=== PATIENT | male | born 1935 | race Caucasian/White ===

== ENCOUNTER 2018-04-18 10:52 | Inpatient (IN) | payer OTHER ==
[~2018-04-18] VITALS: Ht 177.8 cm; Wt 89.0 kg
[~2018-04-18 10:52] MED LIST: AMPICILLIN SODIU2 GM IV; AUGMENTIN 875 M1 TAB PO; DILTIAZEM CD240 MG PO; DOCUSATE SODIU100 MG PO; DULCOLAX10 MG PR; LEVEMIR 10100 UNITS/ SC; LEVEMIR100 U/ML SC; LEXAPRO10 M1 PO; LISINOPRIL HCTZ1 TAB PO; MIRALAX17 GM PO; MOBIC15 MG PO; NEURONTIN100 MG PO; NOVOLIN R100 U/ML; NOVOLOG100 U/ML SC; ROXICODONE5 MG PO; SIMVASTATIN40 M1 PO; VIBRAMYCIN 100100 MG PO; ZESTRIL20 M1 PO
--- NOTE | 2018-04-18 11:43 | ED AMS/SEIZURE/WEAK/DIZZY ---
History of Present Illness General Chief Complaint: General Adult Stated Complaint: WOUNDS ON FEET, REDUCED MOBILITYD Source: patient, family, old records Exam Limitations: no limitations Vital Signs & Intake/Output Vital Signs & Intake/Output Vital Signs Date Time Temp Pulse Resp B/P B/P Pulse O2 O2 Flow FiO2 Mean Ox Delivery Rate 04/19 0715 100.1 04/19 0631 100.0 72 20 114/50 98 Nasal Cannula 04/19 0556 100.0 04/19 0320 101.2 04/19 0000 Nasal 2.0L Cannula 04/18 2233 100.7 93 22 118/46 96 Nasal Cannula 04/18 2229 98.1 92 22 102/60 94 Nasal Cannula 04/18 1605 98.8 80 16 110/80 97 Room Air 04/18 1547 98.5 92 18 97 04/18 1544 126/53 04/18 1352 Room Air 04/18 1352 98.6 103 18 138/66 99 Room Air 04/18 1119 98.7 85 18 106/61 95 Room Air ED Intake and Output 04/19 0000 04/18 1200 Intake Total 1200 Output Total Balance 1200 Intake, IV 1000 Intake, Oral 200 Patient 189 lb 190 lb Weight Weight Bed scale Measurement Method Allergies Coded Allergies: NO KNOWN ALLERGIES (04/18/18) Reconcile Medications Diltiazem HCl (Cardizem Cd) 240 MG CAP.ER.24H 1 CAP PO DAILY HEART (Reported) Escitalopram Oxalate (Lexapro) 10 MG TABLET 1 TAB PO DAILY MENTAL HEALTH ( Reported) Insulin Aspart (Novolog) (Unknown Strength) VIAL (Unknown Dose) SC SEE SLIDING SCALE DIABETES (Reported) Insulin Detemir (Levemir Flextouch) 100 UNIT/ML (3 ML) INSULN.PEN 68 UNITS SC DAILY DIABETES (Reported) Lisinopril (Zestril) 20 MG TABLET 1 TAB PO DAILY HEART (Reported) Phenytoin (Dilantin) 100 MG CAPSULE 2 CAP PO BID SEIZURES (Reported) Simvastatin (Simvastatin*) 40 MG TABLET 1 TAB PO QPM CHOLESTEROL (Reported) Tamsulosin HCl (Flomax) 0.4 MG CAP.ER.24H 1 CAP PO DAILY BPH (Reported) Triage Note: PT TO ER WITH HIS GRANDAUGHTER, PT LIVES ON HIS OWN AND SHE STOPS INTO CHECK ON HIM, PT WAS INCONTINENT OF URINE, HOME SMELLS LIKE VOMIT. [facility] STATES THAT PTS L FOOT LOOKS LIKE IT NEEDS TO BE CUT OFF, THIS NURSE WAS SHOWED A PICTURE OF FOOT. NECROSIS AND REDNESS NOTED. PT IS IDDM. POOR APPETITE, AFEBRILE. PT HAS TOES AMPUTATED ON BOTH FEET Triage Nurses Notes Reviewed? yes Onset: Abrupt Duration: day(s):, constant, getting worse Timing: recent history Injury Environment: home Severity: severe Severity Numbers: 10 No Modifying Factors: none Associated Symptoms: DENIES HPI: 82-year-old male history of diabetes, neuropathy hypertension peripheral vascular disease dementia previous history of osteomyelitis requiring amputations of the feet, presents with his granddaughter niece for evaluation after they found him in an unkempt state. Per granddaughter patient was incontinent of urine smelled like vomit. Upon their evaluation they saw that the patient's toe was black he has a history of multiple amputations in the past secondary to osteomyelitis neuropathy his sugar was greater than 500 he states he did not take his insulin today his granddaughter gave his insulin prior to arrival. He denies any chest pain shortness of breath he is alert and oriented (Seamus Humphries) Past History Travel History Traveled to [place] past 21 day No Medical History Any Pertinent Medical History? see below for history Neurological: NONE EENT: NONE Cardiovascular: hypertension, hyperlipidemia Respiratory: NONE Gastrointestinal: NONE Hepatic: NONE Renal: NONE Musculoskeletal: NONE Psychiatric: NONE Endocrine: diabetes Blood Disorders: NONE Cancer(s): NONE History of MRSA: No History of VRE: No History of CDIFF: No Tetanus Vaccine: 02/28/12 Surgical History Surgical History: RT TOE AMPUTATION Psychosocial History Who do you live with Patient/Self Services at Home None What is your primary language Yoruba Tobacco Use: Never used ETOH Use: denies use Illicit Drug Use: denies illicit drug use Family History Hx Contributory? No (Seamus Humphries) Review of Systems Review of Systems Constitutional: Reports: see HPI. Comments Review of systems: See HPI, All other systems negative. Constitutional, no chills no fever HEENT: no sore throat no congestion Cardiovascular: No chest pain , no palpitation Skin: no rashes, no change in skin Respiratory: No dyspnea no cough no sputum GI: No nausea no vomiting, no diarrhea : No dysuria No hematuria, no frequency Muscle skeletal: No joint pain, no back pain, no neck pain, Neurologic: no headache Heme/endocrine: No bruising Immunology: No lymphadenopathy (Seamus Humphries) Physical Exam Physical Exam General Appearance: well developed/nourished, alert, awake Comments: Well-developed well-nourished person in no acute distress HEENT: Normal EENT exam; PERRL, EOMI,HEAD is atraumatic. moist mucous membranes. Neck: Supple, normal range of motion Back:Full range of motion Cardiovascular: Regular rate and rhythms no murmurs rub Respiratory:No respiratory distress. Patient speaking in full complete sentences. Breath sounds clear to auscultation bilaterally: NO W/R/R Abdomen: Soft, nontender nondistended, no appreciable organomegaly. Normal bowel sounds. No rebound/guarding Upper Extremity: No edema, full range of motion of extremities, normal and equal pulses bilaterally, 5 out of 5 strength noted to bilateral upper extremities Hip/Pelvis: Atraumatic/Stable. FROM. Knee: Atraumatic/stable. FROM. No joint swelling, no effusion. No laxity. Leg: Atraumatic. Nontender. No edema, 5 out of 5 strength in the lower extremity, normal dorsiflexion of great toe bilaterally, gross sensation is intact, patellar tendon reflex 2+ bilaterally. Ankle/Foot: The left third toe is necrotic, there is surrounding erythema extending back to dorsal foot sensation is within normal limits the foot, the rest of the toes are otherwise atraumatic the patient is status post indication bilaterally toes ,FROM. No laxity on exam Pulses: Normal/equal DP/PT pulses bilaterally. Brisk cap refill Neuro: Alert oriented x3, motor sensory normal, cranial nerves II through XII grossly intact. There were no obvious focal neurologic abnormalities. Skin: No appreciable rash on exposed skin, skin is warm and dry. Psych: Mood and affect is normal, memory and judgment is normal. Core Measures ACS in differential dx? Yes CVA/TIA Diagnosis No Sepsis Present: Yes Sepsis Focused Exam Completed? Yes (Seamus Humphries) ED Sepsis Exam Date of Focused Sepsis Exam: 04/18/18 Time of Focused Sepsis Exam: 1140 Sepsis Cardiac Exam: Regular Rate/Rhythm Sepsis Resp Exam: CTA Sepsis Cap Refill Exam: <2 Sec Sepsis Peripheral Pulse Exam: Normal Sepsis Peripheral Pulse Location: Dorsalis Pedis Sepsis Skin Color Exam: Normal for Ethnicity Skin Temp/Moisture Exam: Warm/Dry (Jose SORTO,Seamus) Progress Differential Diagnosis: arrythmia, anemia, dehydration, electrolyte imbalance, GI bleed, hypoglycemia, OSTEOMYELITIS, CELLUILTIS, LEYDA, DKA, HHS Plan of Care: Orders Procedure Date/time Status Consistent Carbohydrate 2 04/19 B Active THYROID STIMULATING HORMONE 04/19 0824 Active LIPID PANEL 04/19 0824 Active FREE T4 04/19 0824 Active DILANTIN 04/19 0824 Active CBC WITHOUT DIFFERENTIAL 04/19 0824 Active BASIC ELECTROLYTES PLUS BUN&CR 04/19 0824 Active VITAMIN B12 04/19 0824 Active NUTRITIONAL CONSULT 04/19 0800 Active Change service to 04/19 0759 Active Transfer Disposition 04/19 0310 Active Consistent Carbohydrate 2 04/18 D Complete Pathway - chart 04/18 2036 Active Transfer patient to 04/18 1850 Active LACTIC ACID 04/18 1843 Complete Lab Add-on Test 04/18 1818 Active EKG 04/18 1740 Active EXTREMETIES OR SPEC 04/18 1735 Active PHENYTOIN 04/18 1701 Complete Weight 04/18 1642 Active Vital Signs 04/18 1642 Active Teach/Educate 04/18 1642 Active Pain Treatment and Response 04/18 1642 Active Nutritional Intake, Monitor 04/18 1642 Active Isolation 04/18 1642 Active Intake & Output 04/18 1642 Active Patient Care Conference 04/18 1642 Active Activity/Ambulation 04/18 1642 Active Pathway - chart 04/18 1544 Active House Staff 04/18 1544 Active Patient Data 04/18 1544 Active Code Status 04/18 1544 Active LACTIC ACID 04/18 1441 Complete Patient Data 04/18 1354 Active Skin/Pressure Ulcer Assess (Sk 04/18 1353 Active ED Holding Orders 04/18 1345 Active Admit to inpatient 04/18 1345 Active Vital Signs 04/18 1345 Active Code Status 04/18 1345 Complete Intake & Output 04/18 1223 Active TOTAL IRON BINDING CAPACITY 04/18 1210 Complete PHOSPHORUS 04/18 1210 Complete MAGNESIUM 04/18 1210 Complete GLYCOSYLATED HGB 04/18 1210 Complete FERRITIN 04/18 1210 Complete SERUM IRON 04/18 1210 Complete FingerStick- Glucose 04/18 1152 Active BLOOD CULTURE 04/18 1150 Active LACTIC ACID 04/18 1141 Complete WESTERGREN SED RATE 04/18 1141 Complete MIXED VENOUS BLOOD GAS (GEN) 04/18 1140 Complete Saline Lock 04/18 1140 Active Telemetry/Windows Systems Admin 04/18 1140 Active URINALYSIS 04/18 1140 Complete TROPONIN LEVEL 04/18 1140 Complete SERUM OSMOLALITY 04/18 1140 Complete COMPREHENSIVE METABOLIC PANEL 04/18 1140 Complete CBC WITHOUT DIFFERENTIAL 04/18 1140 Complete ACETONE 04/18 1140 Complete EKG 04/18 1140 Active Lab Add-on Test 04/18 UNK Active VTE Mechanical Prophylaxis 04/18 UNK Active FingerStick- Glucose 04/18 UNK Complete Current Medications Sig/Aida Start time Last Medication Dose Stop Time Status Admin Insulin Aspart 0 AT BEDTIME 04/19 2100 AC (NovoLOG) Ampicillin Sodium/ 3,000 MG Q8 04/19 1400 AC Sulbactam Sodium (Unasyn) Sodium Chloride 100 ML (Normal Saline 0.9%) Insulin Aspart 0 TIDAC 04/19 1200 AC (NovoLOG) Diltiazem HCl 240 MG DAILY 04/19 09 AC (Cardizem CD) Escitalopram Oxalate 10 MG DAILY 04/19 09 AC (Lexapro) Insulin Detemir 6 UNITS BID 04/19 09 AC (Levemir) Tamsulosin HCl 0.4 MG DAILY 04/19 09 AC (Flomax) Melatonin 5 MG AT BEDTIME 04/18 2245 AC 04/18 (Melatonin) 2244 Phenytoin 200 MG BID 04/18 2100 AC 04/18 (Dilantin ER) 2042 Acetaminophen 650 MG Q6P PRN 04/18 2045 AC (Tylenol) Acetaminophen 1,000 MG Q6P PRN 04/18 2045 AC 04/19 (Ofirmev) 0556 Oxycodone/ 2 TAB Q6P PRN 04/18 204 AC 04/18 Acetaminophen 9 (Percocet) Dextrose/Sodium 1,000 ML Q20H 04/18 1845 AC 04/18 Chloride 2100 (D5W-1/2 Normal Saline 1000ML) Atorvastatin Calcium 40 MG 1700 04/18 1700 AC 04/18 (Lipitor) 1904 Heparin Sodium 5,000 UNIT Q8 04/18 1544 AC 04/19 (Porcine) 0551 Laboratory Tests 04/19/18 0013: Lactic Acid 1.0, Phenytoin < 3.0 L 04/18/18 1530: Lactic Acid 3.8 H 04/18/18 1255: Bicarbonate Actual 24, Mixed VBG pH 7.39, Mixed VBG pCO2 41, Mixed VBG O2 Saturation 17 L, P-50 (Temp Corrected) N, Carboxyhemoglobin 0.6 L, O2 Concentration % .21, Temperature 98.7, O2 Delivery Method RA, Phlebotomy Draw Site RIGHT A/C 04/18/18 1242: ESR Westergren > 130 H 04/18/18 1210: Lactic Acid 2.8 H 04/18/18 1210: Anion Gap 16, Estimated GFR 39 L, BUN/Creatinine Ratio 18.8, Glucose 564 *H, Hemoglobin A1c 11.5 H, Serum Osmolality 295, Calcium 8.8, Phosphorus 4.3, Magnesium 2.0, Iron 32 L, TIBC 229 L, Ferritin 651.0 H, Total Bilirubin 1.0, AST 19, ALT 35, Alkaline Phosphatase 102, Troponin I 0.01, Total Protein 6.8, Albumin 3.5, Globulin 3.3, Albumin/Globulin Ratio 1.1, CBC w Diff MAN DIFF ORDERED, RBC 3.75 L, MCV 82.1, MCH 28.4, MCHC 34.6, RDW 12.9, MPV 8.0, Gran % 89.6 H, Lymphocytes % 4.2 L, Monocytes % 5.8, Eosinophils % 0.3, Basophils % 0.1, Absolute Granulocytes 14.9 H, Segmented Neutrophils 90 H, Band Neutrophils 1, Absolute Lymphocytes 0.7 L, Lymphocytes 3 L, Monocytes 6, Absolute Monocytes 1.0 H, Absolute Eosinophils 0.1, Absolute Basophils 0, Platelet Estimate VERIFIED BY SMEAR, Normocytic RBCs VERIFIED, Normochromic RBCs VERIFIED, Acetone Level NEGATIVE 04/18/18 1200: Urine Color YEL, Urine Clarity CLEAR, Urine pH 6.0, Ur Specific [place] 1.010, Urine Protein TRACE H, Urine Ketones NEG, Urine Nitrite NEG, Urine Bilirubin NEG, Urine Urobilinogen 0.2, Ur Leukocyte Esterase NEG, Ur Microscopic SEDIMENT EXAMINED, Urine RBC RARE, Urine WBC RARE, Ur Epithelial Cells OCCAS, Urine Hemoglobin TRACE-INTACT H, Urine Glucose >=1000 H Microbiology 04/18 1730 EXTREMITIE: Gross Specimen Examination - RECD 04/18 1730 EXTREMITIE: Gram Stain - RECD 04/18 1242 BLOOD: Blood Culture - RES GRAM POSITIVE COCCI 04/18 1210 BLOOD: Blood Culture - RES GRAM POSITIVE COCCI Labs ordered old records reviewed IV fluids ordered x-rays ordered case discussed with Dr. Hernandez agrees plan Diagnostic Imaging: Viewed by Me: Radiology Read. Discussed w/RAD: Radiology Read. Radiology Impression: PATIENT: LEATHA PENNINGTON PRESENT AGE: 82 PATIENT ACCOUNT NO: [id number] : 35 LOCATION: [facility] ORDERING PHYSICIAN: Seamus SORTO SERVICE DATE: 04/18/18 EXAM TYPE: RAD - XRY-FOOT COMPLETE, LEFT EXAMINATION: XR FOOT, LEFT CLINICAL INFORMATION: Left third toe necrotic erythema. Evaluate osteomyelitis. COMPARISON: None TECHNIQUE: Left foot, 3 views FINDINGS: There are is ill-defined osteolysis/ fragmentation of the middle and distal phalanges of the third toe, consistent with osteomyelitis. Soft tissues around the distal phalanx of the third toe are atrophied. There appear to be a few foci of gas within soft tissues around the middle phalanx and region of the PIP joint. The second toe is remotely amputated through the region of the head of the proximal phalanx. 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 A subchondral cyst is present within the proximal aspect of the navicular. Alignment is normal at the [place] and Lisfranc joints. Peripheral vessels are calcified. There are enthesophytes of the calcaneus. IMPRESSION: Osteomyelitis of the middle and distal phalanges of the third toe and apparent small foci of gas within the surrounding soft tissues. DICTATED BY: Douglas Long MD DATE/TIME DICTATED:1401 CREDIT COLLECTIONS REP:JODY DATE/TIME TRANSCRIBED:04/18/181401 CONFIDENTIAL, DO NOT COPY WITHOUT APPROPRIATE AUTHORIZATION. <Electronically signed in Other Vendor System> SIGNED BY: Douglas Long MD 04/18/18 1409, PATIENT: LEATHA PENNINGTON PRESENT AGE: 82 PATIENT ACCOUNT NO: [id number] : 35 LOCATION: [facility] ORDERING PHYSICIAN: Seamus SORTO SERVICE DATE: 04/18/18 EXAM TYPE: RAD - XRY-CHEST XRAY, TWO VIEWS EXAMINATION: XR CHEST CLINICAL INFORMATION: Altered mental status. Hypoglycemia. COMPARISON: Chest radiograph 09/01/2014. TECHNIQUE: 2 views of the chest were obtained. The lateral view was repeated. FINDINGS: The lungs are grossly clear without consolidation, edema, effusion, or pneumothorax. Mild low lung volumes. Normal heart size. Multilevel degenerative changes in the thoracic spine. Degenerative changes at the shoulder joints. IMPRESSION: No active disease in the chest. DICTATED BY: René Solomon MD DATE/TIME DICTATED:1402 CREDIT COLLECTIONS REP:JODY DATE/TIME TRANSCRIBED:04/18/181402 CONFIDENTIAL, DO NOT COPY WITHOUT APPROPRIATE AUTHORIZATION. <Electronically signed in Other Vendor System> SIGNED BY: René Solomon MD 04/18/181407 Initial ED EKG: normal QRS complex, normal sinus rhythm (PACS) Prior EKG: unchanged Rhythm Strip: normal sinus rhythm (Seamus Humphries) Departure Departure Time of Disposition: 1346 Disposition: STILL A PATIENT Condition: Stable Clinical Impression Primary Impression: Uncontrolled diabetes mellitus Secondary Impressions: Cellulitis, Necrosis of toe, Osteomyelitis Referrals: Karthikeyan Tabares MD (PCP/Family) Departure Forms: Customer Survey General Discharge Information Admission Note Spoke With: Sangeeta Huntlye MD Documentation of Exam: Documentation of any treatments & extenuating circumstances including Concerns Regarding Discharge (functional status, medication knowledge or non-compliance, living conditions, etc.) that warrant an admission rather than observation: Podiatry consult endocrine consult IV fluids insulin premature discharge he is medically harmful with a car case management consult for probable rehabilitation placement (Seamus Humphries) Admission Note Spoke With: Sangeeta Huntley MD Documentation of Exam: Documentation of any treatments & extenuating circumstances including Concerns Regarding Discharge (functional status, medication knowledge or non-compliance, living conditions, etc.) that warrant an admission rather than observation: [In addition to the above recommended MRI to rule out osteo] PA/BROADBAND ENGINEER Co-Sign Statement Statement: ED Attending supervision documentation- [X] I saw and evaluated the patient. I have also reviewed all the pertinent lab results and diagnostic results. I agree with the findings and the plan of care as documented in the PA's/BROADBAND ENGINEER's documentation. [X] I have reviewed the ED Record and agree with the PA's/BROADBAND ENGINEER's documentation. [] Additions or exceptions (if any) to the PAs/BROADBAND ENGINEER's note and plan are summarized below: [SEE ABOVENOTE] (David MONTE,Martin Kendrick)
[2018-04-18] MEDS ORDERED: CARDIZEM CD240 M1 PO (12:22)
[2018-04-18 12:23] LABS: ABSOLUTE BASOPHIL COUNT 0 /CUMM (0.0-0.2); ABSOLUTE EOSINOPHIL COUNT 0.1 /CUMM (0.0-0.7); ABSOLUTE GRANULOCYTE CT 14.9 /CUMM (1.4-6.5); ABSOLUTE LYMPH COUNT 0.7 /CUMM (1.2-3.4); BASOPHIL % 0.1 % (0.0-2.0); EOSINOPHIL % 0.3 % (0-5); GRANULOCYTE % 89.6 % (42.2-75.2); HEMATOCRIT 30.8 % (42-52); MEAN CORPUSCULAR HGB 28.4 PG (27.0-31.0); MEAN CORPUSCULAR HGB CONC 34.6 G/DL (33.0-37.0); MEAN CORPUSCULAR VOLUME 82.1 FL (80.0-94.0); PLATELET COUNT 457 /CUMM (130-400); RBC DISTRIBUTION WIDTH 12.9 % (11.5-14.5); RED BLOOD CELL CT 3.75 /CUMM (4.70-6.10); WHITE BLOOD CELL COUNT 16.6 /CUMM (4.8-10.8)
[2018-04-18] MEDS ORDERED: NOVOLOG100 UNIT/2 SC (12:24)
[2018-04-18] MEDS ORDERED: LEVEMIR FL100 UNIT/1 SC (12:25)
[2018-04-18] MEDS ORDERED: DILANTIN100 M1 PO (12:26)
[2018-04-18] MEDS ORDERED: FLOMAX0.4 M1 PO (12:27)
--- NOTE | 2018-04-18 14:00 | History & Physical ---
Dyana Murguia 04/18/18 1357: General Information and HPI History of Present Illness: Mr. Pennington is a 82-year-old male history of noncompliance insulin-dependent diabetes, neuropathy, hypertension, peripheral vascular disease, dementia, previous history of osteomyelitis s/p amputations, presents with his grandchildren for evaluation after they found him in an unkempt state. Granddaughter reports she found her grandfather in soiled clothing that smelled of urine with mild confusion. Patient reports he does have a history of urinary incontinence and is unable to get to the bathroom on time. He noticed a new chronic left-sided foot toe necrotic wound for the past few weeks and did not seek medical attention. He is able to bear weight without difficulty and does not require a walker at baseline. He went to see his PCP-Dr. Tabares for routine visit a few weeks ago and it was reported to him that his glucose level was in the 500s. He admits to noncompliance with his insulin and reports though he has an adequate supply he just does not use it. He has seen podiatry-Dr. Antoine in the past but has not followed up with him for the past 2-3 years. He denies trauma, blurry vision, fever, chills, nausea, vomiting, SOB, CP, parasthesias, urinary or bowel symptoms. In the ED he was given 10 units of Novlin, IV Unasyn x 1 dose and 2L NS IVF Allergies/Medications Allergies: Coded Allergies: NO KNOWN ALLERGIES (04/18/18) Home Med list Diltiazem HCl (Cardizem Cd) 240 MG CAP.ER.24H 1 CAP PO DAILY HEART (Reported) Escitalopram Oxalate (Lexapro) 10 MG TABLET 1 TAB PO DAILY MENTAL HEALTH ( Reported) Insulin Aspart (Novolog) (Unknown Strength) VIAL (Unknown Dose) SC SEE SLIDING SCALE DIABETES (Reported) Insulin Detemir (Levemir Flextouch) 100 UNIT/ML (3 ML) INSULN.PEN 68 UNITS SC DAILY DIABETES (Reported) Lisinopril (Zestril) 20 MG TABLET 1 TAB PO DAILY HEART (Reported) Phenytoin (Dilantin) 100 MG CAPSULE 2 CAP PO BID SEIZURES (Reported) Simvastatin (Simvastatin*) 40 MG TABLET 1 TAB PO QPM CHOLESTEROL (Reported) Tamsulosin HCl (Flomax) 0.4 MG CAP.ER.24H 1 CAP PO DAILY BPH (Reported) Past History Travel History Traveled to [place] past 21 day No Medical History Neurological: NONE EENT: NONE Cardiovascular: hypertension, hyperlipidemia Respiratory: NONE Gastrointestinal: NONE Hepatic: NONE Renal: NONE Musculoskeletal: NONE Psychiatric: NONE Endocrine: diabetes Blood Disorders: NONE Cancer(s): NONE History of MRSA: No History of VRE: No History of CDIFF: No Tetanus Vaccine: 02/28/12 Surgical History Surgical History: RT TOE AMPUTATION Past Family/Social History Psychosocial History Services at Home: None ETOH Use: denies use Illicit Drug Use: denies illicit drug use Review of Systems Review of Systems Constitutional: Reports: see HPI. Exam & Diagnostic Data Last 24 Hrs of Vital Signs/I&O Vital Signs Date Time Temp Pulse Resp B/P B/P Pulse O2 O2 Flow FiO2 Mean Ox Delivery Rate 04/18 1352 Room Air 04/18 1352 98.6 103 18 138/66 99 Room Air 04/18 1119 98.7 85 18 106/61 95 Room Air Intake & Output 04/18 1600 04/18 0800 04/18 0000 Intake Total 1000 Output Total Balance 1000 Intake, IV 1000 Patient 190 lb Weight Physical Exam General Appearance Alert, Oriented X3, Cooperative, No Acute Distress HEENT Atraumatic, PERRLA, EOMI Neck Supple, No JVD, No thryomegaly Cardiovascular Regular Rate, Normal S1, Normal S2, No Murmurs Lungs Clear to Auscultation, Normal Air Movement Abdomen Normal Bowel Sounds, Soft, No Tenderness Extremities Left foot warm, necrotic third digit lesion, swelling, palpable pulse. Right foot cool without palpable pulse but heard with doppler. Multiple toe amputations Last 24 Hrs of Labs/Av: Laboratory Tests 04/18/18 1255: Bicarbonate Actual 24, Mixed VBG pH 7.39, Mixed VBG pCO2 41, Mixed VBG O2 Saturation 17 L, P-50 (Temp Corrected) N, Carboxyhemoglobin 0.6 L, O2 Concentration % .21, Temperature 98.7, O2 Delivery Method RA, Phlebotomy Draw Site RIGHT A/C 04/18/18 1242: ESR Westergren > 130 H 04/18/18 1210: Lactic Acid 2.8 H 04/18/18 1210: Anion Gap 16, Estimated GFR 39 L, BUN/Creatinine Ratio 18.8, Glucose 564 *H, Serum Osmolality 295, Calcium 8.8, Total Bilirubin 1.0, AST 19, ALT 35, Alkaline Phosphatase 102, Troponin I 0.01, Total Protein 6.8, Albumin 3.5, Globulin 3.3, Albumin/Globulin Ratio 1.1, CBC w Diff MAN DIFF ORDERED, RBC 3.75 L, MCV 82.1, MCH 28.4, MCHC 34.6, RDW 12.9, MPV 8.0, Gran % 89.6 H, Lymphocytes % 4.2 L, Monocytes % 5.8, Eosinophils % 0.3, Basophils % 0.1, Absolute Granulocytes 14.9 H, Segmented Neutrophils 90 H, Band Neutrophils 1, Absolute Lymphocytes 0.7 L, Lymphocytes 3 L, Monocytes 6, Absolute Monocytes 1.0 H, Absolute Eosinophils 0.1, Absolute Basophils 0, Platelet Estimate VERIFIED BY SMEAR, Normocytic RBCs VERIFIED, Normochromic RBCs VERIFIED, Acetone Level NEGATIVE 04/18/18 1200: Urine Color YEL, Urine Clarity CLEAR, Urine pH 6.0, Ur Specific [place] 1.010, Urine Protein TRACE H, Urine Ketones NEG, Urine Nitrite NEG, Urine Bilirubin NEG, Urine Urobilinogen 0.2, Ur Leukocyte Esterase NEG, Ur Microscopic SEDIMENT EXAMINED, Urine RBC RARE, Urine WBC RARE, Ur Epithelial Cells OCCAS, Urine Hemoglobin TRACE-INTACT H, Urine Glucose >=1000 H Microbiology 04/18 1242 BLOOD: Blood Culture - RECD 04/18 1210 BLOOD: Blood Culture - RECD Diagnostic Data EKG Results Sinus tachycardia, PVCs, HR 101, QTc 426 Assessment/Plan Assessment: Mr. Pennington is a 82-year-old male history of diabetes, neuropathy, hypertension, peripheral vascular disease dementia previous history of osteomyelitis s/p amputations, presents with his granddaughter niece for evaluation after they found him in an unkempt state. Problem list: #Left foot gas gangrene #Mild hyponatremia #LEYDA -Cr 1.7 (baseline 1.3) #Uncontrolled DM #Lactic acidosis 2.8>>3.8 Plan: Admit to general medical floor for further evaluation and management Nothing by mouth for urgent toe amputation as per podiatry IV Unasyn Hgba1c Trend lactic acid Accu-Chek and NovoLog sliding scale Start Levemir 10 units twice a day Continue home meds: Escitalopram, tamsulosin, phenytoin, statin, diltiazem We will hold lisinopril until renal function improves Pain: Oxycodone/acetaminophen Podiatry consult Endo consult ID consult Diet: Diabetic DVT ppx: Heparin Code: Full As Ranked By This Provider Problem List: 1. Cellulitis 2. Necrosis of toe 3. Uncontrolled diabetes mellitus Core Measures/Misc (08/12) Acute Coronary Syndrome ACS Diagnosis: No Congestive Heart Failure Congestive Heart Failure Diagnosis No Cerebrovascular Accident CVA/TIA Diagnosis: No VTE (View Protocol) VTE Risk Factors Age>40 No Mechanical VTE Prophylaxis d/t N/A MechProphylax Ordered No VTE Pharm Prophylaxis d/t NA PharmProphylax ordered Sepsis (View protocol) Sepsis Present: No If YES complete Sepsis Event Note If YES complete Sepsis Event Note Lexie Esparza MD 04/18/18 1535: Core Measures/Misc (08/12) Sepsis (View protocol) If YES complete Sepsis Event Note If YES complete Sepsis Event Note Attending MD Review Statement Attending Statement Attending MD Statement: examined this patient, discuss w/resident/PA/WELLNESS EDUCATOR, agreed w/resident/PA/WELLNESS EDUCATOR, discussed with family, reviewed EMR data (avail), discussed with nursing, discussed with case mgmt, reviewed images, amended to note Attending Assessment/Plan: 82 y/o M with pmh sig for diabetes, neuropathy, hypertension peripheral vascular disease dementia previous history of osteomyelitis s/p amputations was brought in by family 2/2 to found in unkempt state. Per granddaughter patient was incontinent of urine smelled like vomit. Upon their evaluation they saw that the patient's toe was black he has a history of multiple amputations. Therefore he was brought into the hospital. Upon evaluation it was found that his left third toe was black with surrounding area of cellulitis. X-ray showed Osteomyelitis of the middle and distal phalanges of the third toe and apparent small foci of gas within the surrounding soft tissues. Patient was also found to be hyperglycemic with blood sugars more than 500s, hyponatremic as well as acute on chronic kidney failure. He is noncompliant with his insulin. He lives by himself and according to the family he refuses to go to skilled nursing. Patient denies any fevers. Vital Signs Date Time Temp Pulse Resp B/P B/P Pulse O2 O2 Flow FiO2 Mean Ox Delivery Rate 04/18 1352 Room Air 04/18 1352 98.6 103 18 138/66 99 Room Air 04/18 1119 98.7 85 18 106/61 95 Room Air on exam; aox3, nad. cv; s1,s2, rrr resp; clear abd; soft, nt, bs+ ext; no edema ms: right first and 4th tow amputated. left 3rd toe gangrenous with surrounding erythema and very foul smelling. Laboratory Tests 04/18 04/18 04/18 04/18 1530 1255 1242 1210 Blood Gas Bicarbonate Actual (22 - 26 MEQ/L) 24 Mixed VBG pH (7.31 - 7.41 PH) 7.39 Mixed VBG pCO2 (41 - 51 TORR) 41 Mixed VBG O2 Saturation (35 - 45 TORR) 17 L P-50 (Temp Corrected) N Carboxyhemoglobin (1.5 - 5.0 %) 0.6 L O2 Concentration % .21 Temperature (97.0 - 100.0 FARH) 98.7 O2 Delivery Method RA Chemistry Lactic Acid (0.7 - 2.1 mmol/L) Pending 2.8 H Hematology ESR Westergren (0 - 10 MM) > 130 H Miscellaneous Phlebotomy Draw Site RIGHT A/C 04/18 1210 Chemistry Sodium (137 - 145 mmol/L) 126 L Potassium (3.5 - 5.1 mmol/L) 4.8 Chloride (98 - 107 mmol/L) 89 L Carbon Dioxide (22 - 30 mmol/L) 22 Anion Gap (5 - 16) 16 BUN (9 - 20 mg/dL) 32 H Creatinine (0.7 - 1.2 mg/dL) 1.7 H Estimated GFR (>60 ml/min) 39 L BUN/Creatinine Ratio (7 - 25 %) 18.8 Glucose (65 - 99 mg/dL) 564 *H Serum Osmolality (285 - 295 MOSM/KG) 295 Calcium (8.4 - 10.2 mg/dL) 8.8 Total Bilirubin (0.2 - 1.3 mg/dL) 1.0 AST (17 - 59 U/L) 19 ALT (21 - 72 U/L) 35 Alkaline Phosphatase (< 127 U/L) 102 Troponin I (<0.11 ng/ml) 0.01 Total Protein (6.3 - 8.2 g/dL) 6.8 Albumin (3.5 - 5.0 g/dL) 3.5 Globulin (1.9 - 4.2 gm/dL) 3.3 Albumin/Globulin Ratio (1.1 - 2.2 %) 1.1 Hematology CBC w Diff MAN DIFF ORDERED WBC (4.8 - 10.8 /CUMM) 16.6 H RBC (4.70 - 6.10 /CUMM) 3.75 L Hgb (14.0 - 18.0 G/DL) 10.7 L Hct (42 - 52 %) 30.8 L MCV (80.0 - 94.0 FL) 82.1 MCH (27.0 - 31.0 PG) 28.4 MCHC (33.0 - 37.0 G/DL) 34.6 RDW (11.5 - 14.5 %) 12.9 Plt Count (130 - 400 /CUMM) 457 H MPV (7.4 - 10.4 FL) 8.0 Gran % (42.2 - 75.2 %) 89.6 H Lymphocytes % (20.5 - 51.1 %) 4.2 L Monocytes % (1.7 - 9.3 %) 5.8 Eosinophils % (0 - 5 %) 0.3 Basophils % (0.0 - 2.0 %) 0.1 Absolute Granulocytes (1.4 - 6.5 /CUMM) 14.9 H Segmented Neutrophils (42.2 - 75.2 %) 90 H Band Neutrophils (0.0 - 5.0 %) 1 Absolute Lymphocytes (1.2 - 3.4 /CUMM) 0.7 L Lymphocytes (20.5 - 51.1 %) 3 L Monocytes (1.7 - 9.3 %) 6 Absolute Monocytes (0.10 - 0.60 /CUMM) 1.0 H Absolute Eosinophils (0.0 - 0.7 /CUMM) 0.1 Absolute Basophils (0.0 - 0.2 /CUMM) 0 Platelet Estimate (ADEQUATE) VERIFIED BY SMEAR Normocytic RBCs VERIFIED Normochromic RBCs VERIFIED Toxicology Acetone Level (NEGATIVE) NEGATIVE 04/18 1200 Urines Urine Color (YEL,AMB,STR) YEL Urine Clarity (CLEAR) CLEAR Urine pH (5.0 - 8.0) 6.0 Ur Specific [place] (1.001 - 1.035) 1.010 Urine Protein (NEG,<30 MG/DL) TRACE H Urine Ketones (NEG) NEG Urine Nitrite (NEG) NEG Urine Bilirubin (NEG) NEG Urine Urobilinogen (0.1 - 1.0 EU/dl) 0.2 Ur Leukocyte Esterase (NEG) NEG Ur Microscopic SEDIMENT EXAMINED Urine RBC (0 - 5 /HPF) RARE Urine WBC (0 - 2 /HPF) RARE Ur Epithelial Cells (NONE,FEW) OCCAS Urine Hemoglobin (NEG) TRACE-INTACT H Urine Glucose (N MG/DL) >=1000 H EKG> NSR with few PVCs. CXR: IMPRESSION: No active disease in the chest. Foot Xray: IMPRESSION: Osteomyelitis of the middle and distal phalanges of the third toe and apparent small foci of gas within the surrounding soft tissues. A/P; 82 y/o M with pmh sig for diabetes, neuropathy, hypertension peripheral vascular disease dementia previous history of osteomyelitis s/p amputations admitted with left third toe osteomyelitis/gangrene is looking toe with x-ray showing small foci of gas. Uncontrolled diabetes with significant hyperglycemia and hyponatremia which is likely pseudohyponatremia from hyperglycemia. Also has acute on chronic renal failure. Ketones negative and normal anion gap with normal bicarbonate. Patient admitted to medicine. He received Unasyn in the emergency room. We will continue Unasyn for now and consult infectious disease today. Will obtain blood cultures. Please consult podiatry today. Patient will likely need amputation. We'll continue to hydrate the patient. We'll start the patient on basal as well as sliding scale insulin. Please consult endocrinology. Patient will need nutrition consult. Will hold RICHARD, continue CCB. DVT px: hep sq. Full code. Edmar Hahn MD 04/18/18 1640: General Information and HPI MD Statement: I have seen and personally examined LEATHA PENNINGTON and documented this H&P. The patient is a 82 year old M who presented with a patient stated chief complaint of [left foot osteomyelitis]. Source of Information: patient, family, old records Exam Limitations: no limitations Core Measures/Misc (08/12) Sepsis (View protocol) If YES complete Sepsis Event Note If YES complete Sepsis Event Note Resident Review Statement Resident Statement: examined this patient, discussed with underwriting internship, agreed with underwriting internship, discussed with family Other Findings: Patient is an 82-year-old male with past medical history of hypertension, diabetes -noncompliant insulin,diabetic neuropathy, peripheral vascular disease, history of prostate cancer status post radiation, history of seizure disorder, history of amputation in 2013, history of MRSA cellulitis 2014, was brought to the emergency room by his granddaughter, as she found him in urine, foul- smelling necrotic left toe. ED course - Vital signs at the time of admission-temperature 98.7, pulse 85, respiratory rate 18, blood pressure 106/61, SPO2 95% on room air. On physical exam -patient was oriented to time place and person. Oral cavity dry, he was having dropping of right eyelid, though alternatively examination was normal. No JVD, lungs bilateral clear, heart S1-S2 normal, abdomen soft but distended, extremities all peripheral pulses palpable, left foot -cellulitis on the dorsum aspect of the foot, with gangrenous left second toe. Pulses are audible with the Doppler. Blood workup showed -WBC 6.6, RBC 3.75, hemoglobin 10.7, hematocrit 30.8, platelet count 457, granulocyte 89.6, monocytes 5.8, absolute clearance of 14.9, segmented neutrophils 90, ESR more than 130, serum sodium 126, potassium 4.8, chloride 89, carbon dioxide 22, anion gap 16, BUN 32, creatinine 1.7, Assessment and plan - Left foot gangrene of second toe, with surrounding cellulitis -leading to leukocytosis * We will start patient on IV fluid normal saline 75 cc/h * Blood sugar charting every 6 * Inj Unasyn 3 g IV 6 hourly * Discussed with Dr. Smith over the phone, advised to keep n.p.o. and patient will have amputation today. * We will follow ID consult * We will follow endocrine recommendation * We will consider, vascular consult Type 2 diabetes - * Target blood sugar will be in the range of 140-180 * Blood sugar charting every 6 hourly * NovoLog according to the sliding scale * IV fluids normal saline 75 cc/h; if patient blood sugar level below 250 and we will convert it to D5 half normal saline. Anemia -10.7 * We will do iron panel and stool for occult blood to r/o anemia Psuedo Hyponatremia -126 and ? SIADH due to citalopram - * After correcting for glucose it is - 133. LEYDA probably secondary to infection, dehydration and maybe baseline chronic kidney disease secondary to diabetes * We will regulary monitor BEP. Chronic medical condition -hypertension, diabetes, diabetic neuropathy, peripheral vascular disease - * we will continue diltiazem, citalopram, insulin, phenytoin. * We will check a phenytoin level DVT prophylaxis -ALPS/heparin CODE STATUS -full code Diet -n.p.o. for now and diabetic diet postoperatively.
--- NOTE | 2018-04-18 14:08 | RADIOLOGY REPORT ---
EXAMINATION: XR CHEST CLINICAL INFORMATION: Altered mental status. Hypoglycemia. COMPARISON: Chest radiograph 09/01/2014. TECHNIQUE: 2 views of the chest were obtained. The lateral view was repeated. FINDINGS: The lungs are grossly clear without consolidation, edema, effusion, or pneumothorax. Mild low lung volumes. Normal heart size. Multilevel degenerative changes in the thoracic spine. Degenerative changes at the shoulder joints. IMPRESSION: No active disease in the chest.
--- NOTE | 2018-04-18 14:09 | RADIOLOGY REPORT ---
EXAMINATION: XR FOOT, LEFT CLINICAL INFORMATION: Left third toe necrotic erythema. Evaluate osteomyelitis. COMPARISON: None TECHNIQUE: Left foot, 3 views FINDINGS: There are is ill-defined osteolysis/fragmentation of the middle and distal phalanges of the third toe, consistent with osteomyelitis. Soft tissues around the distal phalanx of the third toe are atrophied. There appear to be a few foci of gas within soft tissues around the middle phalanx and region of the PIP joint. The second toe is remotely amputated through the region of the head of the proximal phalanx. 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 A subchondral cyst is present within the proximal aspect of the navicular. Alignment is normal at the [place] and Lisfranc joints. Peripheral vessels are calcified. There are enthesophytes of the calcaneus. IMPRESSION: Osteomyelitis of the middle and distal phalanges of the third toe and apparent small foci of gas within the surrounding soft tissues.
[2018-04-18 16:05] VITALS: BP 110/80
--- NOTE | 2018-04-18 17:13 | Cons- Infect Disease ---
General Information and HPI Consulting Request Date of Consult: 04/18/18 Requested By: Lexie Esparza MD Reason for Consult: Gangrene of the left third toe Source of Information: patient, family, old records History of Present Illness: This is an 82-year-old man with a history of diabetes, with which he is noncompliant, hypertension, prostate cancer, status post radiation with secondary proctitis, seizure disorder and peripheral vascular disease, status post amputation of the right great toe and partial amputations of the right fourth and left second toes, admitted today after he was brought to the emergency room by his granddaughter who found him disheveled and incontinent at home, with a foul-smelling, necrotic left third toe. On admission he was afebrile. Laboratory data revealed a white blood cell count of 17,000, glucose 564, BUN/creatinine 32 and 1.7, sodium 126, with normal liver enzymes. Urinalysis rare RBC/rare WBCs. X-ray of the left foot revealed osteomyelitis of the middle and distal phalanges of the third toe with a few foci of gas within the surrounding soft tissues. He was given a dose of Unasyn in the ER and admitted to the floor. Allergies/Medications Allergies: Coded Allergies: NO KNOWN ALLERGIES (04/18/18) Home Med List: Diltiazem HCl (Cardizem Cd) 240 MG CAP.ER.24H 1 CAP PO DAILY HEART (Reported) Escitalopram Oxalate (Lexapro) 10 MG TABLET 1 TAB PO DAILY MENTAL HEALTH ( Reported) Insulin Aspart (Novolog) (Unknown Strength) VIAL (Unknown Dose) SC SEE SLIDING SCALE DIABETES (Reported) Insulin Detemir (Levemir Flextouch) 100 UNIT/ML (3 ML) INSULN.PEN 68 UNITS SC DAILY DIABETES (Reported) Lisinopril (Zestril) 20 MG TABLET 1 TAB PO DAILY HEART (Reported) Phenytoin (Dilantin) 100 MG CAPSULE 2 CAP PO BID SEIZURES (Reported) Simvastatin (Simvastatin*) 40 MG TABLET 1 TAB PO QPM CHOLESTEROL (Reported) Tamsulosin HCl (Flomax) 0.4 MG CAP.ER.24H 1 CAP PO DAILY BPH (Reported) Past History Travel History Traveled to [place] past 21 day No Medical History Neurological: NONE EENT: NONE Cardiovascular: hypertension, hyperlipidemia Respiratory: NONE Gastrointestinal: NONE Hepatic: NONE Renal: NONE Musculoskeletal: NONE Psychiatric: NONE Endocrine: diabetes Blood Disorders: NONE Cancer(s): NONE History of MRSA: No History of VRE: No History of CDIFF: No Tetanus Vaccine: 02/28/12 Surgical History Surgical History: RT TOE AMPUTATION, Partial amputations mof the right 2nd and left 4th toes Psychosocial History Services at Home: None ETOH Use: denies use Illicit Drug Use: denies illicit drug use Review of Systems Review of Systems All Other Systems: Reviewed and Negative Exam & Diagnostic Data Last 24 Hrs of Vital Signs/I&O Vital Signs Date Time Temp Pulse Resp B/P B/P Pulse O2 O2 Flow FiO2 Mean Ox Delivery Rate 04/18 1547 98.5 92 18 97 04/18 1544 126/53 04/18 1352 Room Air 04/18 1352 98.6 103 18 138/66 99 Room Air 04/18 1119 98.7 85 18 106/61 95 Room Air Intake & Output 04/18 1600 04/18 0800 04/18 0000 Intake Total 1000 Output Total Balance 1000 Intake, IV 1000 Patient 190 lb Weight Physical Exam Other Physical Findings: He is awake and alert in no acute distress. He is afebrile. Skin reveals no rash. HEENT exam is negative. Neck is supple with no adenopathy. Lungs are clear. Heart regular rhythm with no murmur. Abdomen is soft, nontender with positive bowel sounds. Back no CVA tenderness. Extremities left third toe necrotic, with a foul odor, with erythema of the left fourth toe extending over the dorsum of the left foot, with decreased pulses; status post partial left second toe amputation; right foot status post right great toe and partial right fourth toe amputations. Neuro is without focality. Last 24 Hours of Lab Results: Laboratory Tests 04/18 04/18 04/18 04/18 1530 1255 1242 1210 Blood Gas Bicarbonate Actual (22 - 26 MEQ/L) 24 Mixed VBG pH (7.31 - 7.41 PH) 7.39 Mixed VBG pCO2 (41 - 51 TORR) 41 Mixed VBG O2 Saturation (35 - 45 TORR) 17 L P-50 (Temp Corrected) N Carboxyhemoglobin (1.5 - 5.0 %) 0.6 L O2 Concentration % .21 Temperature (97.0 - 100.0 FARH) 98.7 O2 Delivery Method RA Chemistry Lactic Acid (0.7 - 2.1 mmol/L) Pending 2.8 H Hematology ESR Westergren (0 - 10 MM) > 130 H Miscellaneous Phlebotomy Draw Site RIGHT A/C 04/18 1210 Chemistry Sodium (137 - 145 mmol/L) 126 L Potassium (3.5 - 5.1 mmol/L) 4.8 Chloride (98 - 107 mmol/L) 89 L Carbon Dioxide (22 - 30 mmol/L) 22 Anion Gap (5 - 16) 16 BUN (9 - 20 mg/dL) 32 H Creatinine (0.7 - 1.2 mg/dL) 1.7 H Estimated GFR (>60 ml/min) 39 L BUN/Creatinine Ratio (7 - 25 %) 18.8 Glucose (65 - 99 mg/dL) 564 *H Serum Osmolality (285 - 295 MOSM/KG) 295 Calcium (8.4 - 10.2 mg/dL) 8.8 Total Bilirubin (0.2 - 1.3 mg/dL) 1.0 AST (17 - 59 U/L) 19 ALT (21 - 72 U/L) 35 Alkaline Phosphatase (< 127 U/L) 102 Troponin I (<0.11 ng/ml) 0.01 Total Protein (6.3 - 8.2 g/dL) 6.8 Albumin (3.5 - 5.0 g/dL) 3.5 Globulin (1.9 - 4.2 gm/dL) 3.3 Albumin/Globulin Ratio (1.1 - 2.2 %) 1.1 Hematology CBC w Diff MAN DIFF ORDERED WBC (4.8 - 10.8 /CUMM) 16.6 H RBC (4.70 - 6.10 /CUMM) 3.75 L Hgb (14.0 - 18.0 G/DL) 10.7 L Hct (42 - 52 %) 30.8 L MCV (80.0 - 94.0 FL) 82.1 MCH (27.0 - 31.0 PG) 28.4 MCHC (33.0 - 37.0 G/DL) 34.6 RDW (11.5 - 14.5 %) 12.9 Plt Count (130 - 400 /CUMM) 457 H MPV (7.4 - 10.4 FL) 8.0 Gran % (42.2 - 75.2 %) 89.6 H Lymphocytes % (20.5 - 51.1 %) 4.2 L Monocytes % (1.7 - 9.3 %) 5.8 Eosinophils % (0 - 5 %) 0.3 Basophils % (0.0 - 2.0 %) 0.1 Absolute Granulocytes (1.4 - 6.5 /CUMM) 14.9 H Segmented Neutrophils (42.2 - 75.2 %) 90 H Band Neutrophils (0.0 - 5.0 %) 1 Absolute Lymphocytes (1.2 - 3.4 /CUMM) 0.7 L Lymphocytes (20.5 - 51.1 %) 3 L Monocytes (1.7 - 9.3 %) 6 Absolute Monocytes (0.10 - 0.60 /CUMM) 1.0 H Absolute Eosinophils (0.0 - 0.7 /CUMM) 0.1 Absolute Basophils (0.0 - 0.2 /CUMM) 0 Platelet Estimate (ADEQUATE) VERIFIED BY SMEAR Normocytic RBCs VERIFIED Normochromic RBCs VERIFIED Toxicology Acetone Level (NEGATIVE) NEGATIVE 04/18 1200 Urines Urine Color (YEL,AMB,STR) YEL Urine Clarity (CLEAR) CLEAR Urine pH (5.0 - 8.0) 6.0 Ur Specific [place] (1.001 - 1.035) 1.010 Urine Protein (NEG,<30 MG/DL) TRACE H Urine Ketones (NEG) NEG Urine Nitrite (NEG) NEG Urine Bilirubin (NEG) NEG Urine Urobilinogen (0.1 - 1.0 EU/dl) 0.2 Ur Leukocyte Esterase (NEG) NEG Ur Microscopic SEDIMENT EXAMINED Urine RBC (0 - 5 /HPF) RARE Urine WBC (0 - 2 /HPF) RARE Ur Epithelial Cells (NONE,FEW) OCCAS Urine Hemoglobin (NEG) TRACE-INTACT H Urine Glucose (N MG/DL) >=1000 H Last 24 Hours of Av Results: Blood cultures April 18 pending Diagnostic Data Recent Imaging Findings: X-ray of the left foot revealed osteomyelitis of the middle and distal phalanges of the third toe with a few foci of gas within the surrounding soft tissues. Assessment/Plan Assessment/Plan Impression: This is an 82-year-old man with a history of diabetes and peripheral vascular disease, status post amputation of the right great toe and partial amputations of the right fourth and left second toes, admitted today after he was found disheveled and incontinent at home, with a foul-smelling, necrotic left third toe, found in the ER to be afebrile with a leukocytosis, hyperglycemia and renal insufficiency, with an x-ray of the left foot revealing osteomyelitis of the middle and distal phalanges of the third toe with small foci of gas within the surrounding soft tissues. His clinical picture is consistent with gangrene of the left third toe with secondary cellulitis of the left foot. He will require amputation of the third toe and, possibly, the surrounding toes. His arterial supply is likely compromised and he will benefit from vascular surgery evaluation. He was begun on Unasyn in the emergency room and this can be continued empirically pending OR cultures. Suggestion: 1. Await Podiatry input for amputation of the left third toe 2. Vascular surgery evaluation 3. Follow-up OR cultures 4. Continue Unasyn but decrease to 3 g IV every 8 hours Consult Acknowledgment - Thank you for your consult request.
--- NOTE | 2018-04-18 17:33 | Operative Report ---
Operative/Inv Procedure Report Surgery Date: 04/18/18 Name of Procedure: 1 open incision and drainage deep to the deep fascia with exposure of the extensor and flexor tendon and tendon sheath multiple sites 2 open, partial third ray resection left foot 3 intraoperative administration of ankle block anesthesia 4 excisional debridement Pre-Operative Diagnosis: 1 wet gangrene left foot 2 osteomyelitis left foot Post-Operative Diagnosis: The same Estimated Blood Loss: less than 50ml Surgeon/Art Supervisor: KARY RUVALCABA DPM Anesthesia: moderate sedation, block Operative/Procedure Note Note: After obtaining informed consent the patient was brought to the operating room and placed on the operating table in the supine position. The patient was then securely fastened to the operating table utilizing safety belt. After administration of IV sedation, 10 mL of 0.5% Marcaine plain was infiltrated about the patient's left ankle. The left foot and ankle were then scrubbed, prepped and draped in usual aseptic manner. Attention was directed to the left foot, where a large necrotic was identified involving the distal third ray. A 15 blade was utilized to sharply revised skin margins. The dissection was then carried down deep to the deep fascia with exposure of the extensor and flexor tendon and tendon sheath multiple sites, both proximally and distally. All necrotic, nonviable infected tissue was sharply evacuated from the wound bed. The dissection and continued proximally to the periosteum overlying the distal third metatarsal shaft. This was incised reflected. Sagittal bone saw was utilized performed through and through osteotomy. The distal osseous segment was freed and passed from the operative field. Specimen was sent for both pathologic and microbiologic inspection. The open wound was then irrigated with 3 L of normal sterile saline infused with 50,000 units of bacitracin. Following this, the foot was redraped and the surgeon's top gloves were changed clean gloves. Any bleeding vessels identified were cauterized or ligated as encountered. The wound was packed with iodoform followed by 4 x 4's, Kerlix and an Pete wrap. The patient was noted to tolerate both procedure and anesthesia well and the patient was transported from the operating room to recovery with vital signs stable.
--- NOTE | 2018-04-18 18:22 | Cons- Endocrinology ---
General Information and HPI Consulting Request Date of Consult: 04/18/18 Requested By: medical team Reason for Consult: Uncontrolled diabetes Source of Information: patient, family, old records Exam Limitations: poor historian History of Present Illness: This 82-year-old male has a known history of diabetes for many years. He is being seen in the recovery room following surgery nikolas. He is usually followed by Dr. Tabares in the office. He apparently was on a large dose of detemir although he states he does not take his insulin very frequently. He was also on some NovoLog. He does not know when he took his last insulin. He states he does not check his sugar at home. The patient was brought to the emergency room by the family because he was not doing well. In the emergency room he was found to have gangrene and osteomyelitis of his left foot. He was taken to the operating room by Dr. Elina connor The patient was given some regular insulin in the ER and then we placed him on NovoLog sliding scale. He also ordered D5 half-normal saline at 75 cc/h while he is n.p.o. His initial labs showed an elevated blood sugar of 564 with a creatinine of 1.7 sodium 126 CO2 22 anion gap normal lactic acid +2.8. White blood count is 16.6 hematocrit 10.7 hemoglobin 30.8.. Allergies/Medications Allergies: Coded Allergies: NO KNOWN ALLERGIES (04/18/18) Home Med List: Diltiazem HCl (Cardizem Cd) 240 MG CAP.ER.24H 1 CAP PO DAILY HEART (Reported) Escitalopram Oxalate (Lexapro) 10 MG TABLET 1 TAB PO DAILY MENTAL HEALTH ( Reported) Insulin Aspart (Novolog) (Unknown Strength) VIAL (Unknown Dose) SC SEE SLIDING SCALE DIABETES (Reported) Insulin Detemir (Levemir Flextouch) 100 UNIT/ML (3 ML) INSULN.PEN 68 UNITS SC DAILY DIABETES (Reported) Lisinopril (Zestril) 20 MG TABLET 1 TAB PO DAILY HEART (Reported) Phenytoin (Dilantin) 100 MG CAPSULE 2 CAP PO BID SEIZURES (Reported) Simvastatin (Simvastatin*) 40 MG TABLET 1 TAB PO QPM CHOLESTEROL (Reported) Tamsulosin HCl (Flomax) 0.4 MG CAP.ER.24H 1 CAP PO DAILY BPH (Reported) Current Medications: Current Medications Sig/Aida Start time Last Medication Dose Route Stop Time Status Admin Ampicillin Sodium/ 3,000 MG Q6 04/18 1800 AC Sulbactam Sodium IV Sodium Chloride 100 ML Ampicillin Sodium/ 0 .STK-MED ONE 04/18 1305 DC Sulbactam Sodium .ROUTE Ampicillin Sodium/ 3,000 MG ONCE ONE 04/18 1200 DC 04/18 Sulbactam Sodium IV 04/18 1229 1315 Sodium Chloride 100 ML Atorvastatin Calcium 40 MG 1700 04/18 1700 AC PO Dextrose/Sodium 1,000 ML Q13H 04/18 1600 DC Chloride IV Diltiazem HCl 240 MG DAILY 04/19 0900 AC PO Escitalopram Oxalate 10 MG DAILY 04/19 0900 AC PO Heparin Sodium 5,000 UNIT Q8 04/18 1544 AC (Porcine) SC Insulin Aspart 0 Q4 04/18 1800 AC SC Insulin Aspart 0 TIDAC 04/18 1700 DC SC Insulin Detemir 34 UNITS BID 04/18 2100 AC SC Insulin Human Regular 10 UNITS ONCE ONE 04/18 1300 DC 04/18 IV 04/18 1301 1315 Phenytoin 200 MG BID 04/18 2100 AC PO Sodium Chloride 1,000 ML Q13H 04/18 1645 AC IV Sodium Chloride 1,000 ML BOLUS ONE 04/18 1345 DC 04/18 IV 04/18 1444 1354 Sodium Chloride 1,000 ML BOLUS ONE 04/18 1145 DC 04/18 IV 04/18 1244 1251 Tamsulosin HCl 0.4 MG DAILY 04/19 0900 AC PO Review of Systems Review of Systems Constitutional: Denies: chills, fever. Cardiovascular: Denies: chest pain. GI: Denies: abdominal pain, nausea. Skin: Reports: lesions (left foot). Past History Travel History Traveled to [place] past 21 day No Medical History Neurological: NONE EENT: NONE Cardiovascular: hypertension, hyperlipidemia Respiratory: NONE Gastrointestinal: NONE Hepatic: NONE Renal: NONE Musculoskeletal: NONE Psychiatric: NONE Endocrine: diabetes Blood Disorders: NONE Cancer(s): NONE Surgical History Surgical History: RT TOE AMPUTATION Partial amputations mof the right 2nd and left 4th toes Psychosocial History Services at Home: None Smoking Status: Unknown If Ever Smoked ETOH Use: denies use Illicit Drug Use: denies illicit drug use Exam & Diagnostic Data Last 24 Hrs of Vital Signs/I&O Vital Signs Date Time Temp Pulse Resp B/P B/P Pulse O2 O2 Flow FiO2 Mean Ox Delivery Rate 04/18 1547 98.5 92 18 97 04/18 1544 126/53 04/18 1352 Room Air 04/18 1352 98.6 103 18 138/66 99 Room Air 04/18 1119 98.7 85 18 106/61 95 Room Air Intake & Output 04/18 1600 04/18 0800 04/18 0000 Intake Total 1000 Output Total Balance 1000 Intake, IV 1000 Patient 190 lb Weight Vital Signs Date Time Temp Pulse Resp B/P B/P Pulse O2 O2 Flow FiO2 Mean Ox Delivery Rate 04/18 1547 98.5 92 18 97 04/18 1544 126/53 04/18 1352 Room Air 04/18 1352 98.6 103 18 138/66 99 Room Air 04/18 1119 98.7 85 18 106/61 95 Room Air Intake & Output 04/18 1600 04/18 0800 04/18 0000 Intake Total 1000 Output Total Balance 1000 Intake, IV 1000 Patient 190 lb Weight Physical Exam General Appearance: alert, awake, comfortable Head: normal appearance Eyes: Bilateral: normal appearance. Neck: normal inspection Respiratory: normal breath sounds Cardiovascular: irregularly irregular Gastrointestinal: normal bowel sounds Extremities: left foot bandaged Labs/Av Results: Laboratory Tests 04/18 04/18 04/18 04/18 1530 1255 1242 1210 Blood Gas Bicarbonate Actual (22 - 26 MEQ/L) 24 Mixed VBG pH (7.31 - 7.41 PH) 7.39 Mixed VBG pCO2 (41 - 51 TORR) 41 Mixed VBG O2 Saturation (35 - 45 TORR) 17 L P-50 (Temp Corrected) N Carboxyhemoglobin (1.5 - 5.0 %) 0.6 L O2 Concentration % .21 Temperature (97.0 - 100.0 FARH) 98.7 O2 Delivery Method RA Chemistry Lactic Acid (0.7 - 2.1 mmol/L) 3.8 H 2.8 H Hematology ESR Westergren (0 - 10 MM) > 130 H Miscellaneous Phlebotomy Draw Site RIGHT A/C 04/18 1210 Chemistry Sodium (137 - 145 mmol/L) 126 L Potassium (3.5 - 5.1 mmol/L) 4.8 Chloride (98 - 107 mmol/L) 89 L Carbon Dioxide (22 - 30 mmol/L) 22 Anion Gap (5 - 16) 16 BUN (9 - 20 mg/dL) 32 H Creatinine (0.7 - 1.2 mg/dL) 1.7 H Estimated GFR (>60 ml/min) 39 L BUN/Creatinine Ratio (7 - 25 %) 18.8 Glucose (65 - 99 mg/dL) 564 *H Serum Osmolality (285 - 295 MOSM/KG) 295 Calcium (8.4 - 10.2 mg/dL) 8.8 Phosphorus (2.5 - 4.5 mg/dL) Pending Magnesium (1.6 - 2.3 mg/dL) Pending Total Bilirubin (0.2 - 1.3 mg/dL) 1.0 AST (17 - 59 U/L) 19 ALT (21 - 72 U/L) 35 Alkaline Phosphatase (< 127 U/L) 102 Troponin I (<0.11 ng/ml) 0.01 Total Protein (6.3 - 8.2 g/dL) 6.8 Albumin (3.5 - 5.0 g/dL) 3.5 Globulin (1.9 - 4.2 gm/dL) 3.3 Albumin/Globulin Ratio (1.1 - 2.2 %) 1.1 Hematology CBC w Diff MAN DIFF ORDERED WBC (4.8 - 10.8 /CUMM) 16.6 H RBC (4.70 - 6.10 /CUMM) 3.75 L Hgb (14.0 - 18.0 G/DL) 10.7 L Hct (42 - 52 %) 30.8 L MCV (80.0 - 94.0 FL) 82.1 MCH (27.0 - 31.0 PG) 28.4 MCHC (33.0 - 37.0 G/DL) 34.6 RDW (11.5 - 14.5 %) 12.9 Plt Count (130 - 400 /CUMM) 457 H MPV (7.4 - 10.4 FL) 8.0 Gran % (42.2 - 75.2 %) 89.6 H Lymphocytes % (20.5 - 51.1 %) 4.2 L Monocytes % (1.7 - 9.3 %) 5.8 Eosinophils % (0 - 5 %) 0.3 Basophils % (0.0 - 2.0 %) 0.1 Absolute Granulocytes (1.4 - 6.5 /CUMM) 14.9 H Segmented Neutrophils (42.2 - 75.2 %) 90 H Band Neutrophils (0.0 - 5.0 %) 1 Absolute Lymphocytes (1.2 - 3.4 /CUMM) 0.7 L Lymphocytes (20.5 - 51.1 %) 3 L Monocytes (1.7 - 9.3 %) 6 Absolute Monocytes (0.10 - 0.60 /CUMM) 1.0 H Absolute Eosinophils (0.0 - 0.7 /CUMM) 0.1 Absolute Basophils (0.0 - 0.2 /CUMM) 0 Platelet Estimate (ADEQUATE) VERIFIED BY SMEAR Normocytic RBCs VERIFIED Normochromic RBCs VERIFIED Toxicology Acetone Level (NEGATIVE) NEGATIVE 04/18 1200 Urines Urine Color (YEL,AMB,STR) YEL Urine Clarity (CLEAR) CLEAR Urine pH (5.0 - 8.0) 6.0 Ur Specific [place] (1.001 - 1.035) 1.010 Urine Protein (NEG,<30 MG/DL) TRACE H Urine Ketones (NEG) NEG Urine Nitrite (NEG) NEG Urine Bilirubin (NEG) NEG Urine Urobilinogen (0.1 - 1.0 EU/dl) 0.2 Ur Leukocyte Esterase (NEG) NEG Ur Microscopic SEDIMENT EXAMINED Urine RBC (0 - 5 /HPF) RARE Urine WBC (0 - 2 /HPF) RARE Ur Epithelial Cells (NONE,FEW) OCCAS Urine Hemoglobin (NEG) TRACE-INTACT H Urine Glucose (N MG/DL) >=1000 H Assessment/Plan Assessment/Plan This patient has a long-standing history of type 2 diabetes. He has been found to have gangrene and osteomyelitis involving his left foot which he was hiding from his family for quite a while. He is noncompliant on his insulin regimen at home and does not check his sugars. He entered the hospital with a high sugar of 564 but without evidence of ketoacidosis. At the present time the patient states he is hungry. When his diet is ordered we can switch him from his n.p.o. regimen to a dietary regimen. I would suggest begin Levemir 10 units twice a day tonight and stop the high-dose Levemir that has already ordered which would have been given tonight. In addition we can place the patient on a NovoLog sliding scale. NovoLog sliding scale before meals should be 80-150 give 4 units NovoLog, 151-200 give 5 units NovoLog, 201- 250 give 6 units NovoLog, 251-300 give 7 units NovoLog, 301-350 give 8 units NovoLog, 351-400 give 9 units NovoLog. A separate time sliding scale NovoLog should be written. Sliding scale NovoLog at bedtime should be less than 250 give no insulin, 251-300 give 2 units NovoLog , 301 12/29/1949 give 3 units NovoLog, 351-400 give 4 units NovoLog. If he is eating well his IV fluids can be reduced 50 cc/h. The patient should be seen by cardiology to evaluate his heart rhythm. He may need to be admitted to a telemetry bed rather than general medicine tonight. Consult Acknowledgment - Thank you for your consult request.
[2018-04-18 22:29] VITALS: BP 102/60
[2018-04-18 22:33] VITALS: BP 118/46
[2018-04-19 06:31] VITALS: BP 114/50
--- NOTE | 2018-04-19 07:47 | PN- Housestaff ---
Franky MONTE,Baltazar 04/19/18 0747: Subjective Follow-up For: Gram positive sepsis Left toe gangrene s/p amputation PACs/PVCs Hyperglycemia Tele-Events Since Last Visit: NSR 74-99, PACs/PVCs Subjective: Patient was seen and examined today. Patient reports occasional palpitations. Denies fever/chills, n/v/c/d, abdominal pain, foot pain, chest pain or SOB. Patient overnight had hyperglycemia to the 500s while in the PACU. At which time he was noted to have mutliple PVCs by the bracelet and brooch maker and transferred to telemetry. Patient on tele continues to have PVCs. Patient reports occasional palpitations. Denies lightheadedness, dizzines. Review of Systems Constitutional: Reports: see HPI. Objective Last 24 Hrs of Vital Signs/I&O Vital Signs Date Time Temp Pulse Resp B/P B/P Pulse O2 O2 Flow FiO2 Mean Ox Delivery Rate 04/19 1001 99.3 04/19 0856 90 114/58 04/19 0800 95 Nasal 2.0L Cannula 04/19 0715 100.1 04/19 0631 100.0 72 20 114/50 98 Nasal Cannula 04/19 0556 100.0 04/19 0320 101.2 04/19 0000 Nasal 2.0L Cannula 04/18 2233 100.7 93 22 118/46 96 Nasal Cannula 04/18 2229 98.1 92 22 102/60 94 Nasal Cannula 04/18 1605 98.8 80 16 110/80 97 Room Air 04/18 1547 98.5 92 18 97 04/18 1544 126/53 Intake & Output 04/19 1600 04/19 0800 04/19 0000 Intake Total 500 200 Output Total Balance 500 200 Intake, IV 400 Intake, Oral 100 200 Patient 192 lb 189 lb Weight Weight Bed scale Measurement Method Physical Exam General Appearance: Alert, Oriented X3, Cooperative, No Acute Distress Skin Temp/Moisture Exam: Warm/Dry Sepsis Skin Exam (color): Normal for Ethnicity HEENT: Atraumatic, Mucous Membr. moist/pink Cardiovascular: Regular Rate, Normal S1, Normal S2 Lungs: Clear to Auscultation, Normal Air Movement Abdomen: Normal Bowel Sounds, Soft, No Tenderness Extremities: No Clubbing, No Cyanosis, poorly palpable pusles, first and fourth toe of R foot s/p previous amputation, left foot covered with surgical dressing Current Medications: Current Medications Sig/Aida Start time Last Medication Dose Route Stop Time Status Admin Acetaminophen 1,000 MG .STK-MED ONE 04/19 0522 DC IV 04/19 0523 Acetaminophen 650 MG Q6P PRN 04/18 204 AC PO Acetaminophen 1,000 MG Q6P PRN 04/18 204 AC 04/19 IV 0556 Ampicillin Sodium/ 3,000 MG Q8 04/19 1400 CAN Sulbactam Sodium IV Sodium Chloride 100 ML Ampicillin Sodium/ 3,000 MG Q6 04/18 1800 DC 04/19 Sulbactam Sodium IV 0548 Sodium Chloride 100 ML Atorvastatin Calcium 40 MG 1700 04/18 1700 AC 04/18 PO 1904 Ceftazidime 1,000 MG 0200,1400 04/19 1400 AC IV Dextrose/Sodium 1,000 ML Q20H 04/18 1845 AC 04/19 Chloride IV 1402 Dextrose/Sodium 1,000 ML Q13H 04/18 1600 DC Chloride IV Diltiazem HCl 240 MG DAILY 04/19 0900 AC 04/19 PO 0856 Escitalopram Oxalate 10 MG DAILY 04/19 0900 AC 04/19 PO 0855 Fentanyl Citrate 100 MCG .STK-MED ONE 04/18 1624 DC IM 04/18 1625 Heparin Sodium 5,000 UNIT Q8 04/18 1544 AC 04/19 (Porcine) SC 1402 Insulin Aspart 0 AT BEDTIME 04/19 2100 AC SC Insulin Aspart 0 TIDAC 04/19 1200 AC 04/19 SC 1237 Insulin Aspart 0 Q4 04/18 1800 DC 04/19 SC 0555 Insulin Aspart 0 TIDAC 04/18 1700 DC SC Insulin Detemir 6 UNITS BID 04/19 0900 AC 04/19 SC 0855 Insulin Detemir 34 UNITS BID 04/18 2100 DC SC Insulin Detemir 10 UNITS BID 04/18 2100 DC 04/18 SC 2042 Melatonin 5 MG AT BEDTIME 04/19 2100 DC PO Melatonin 5 MG AT BEDTIME 04/18 2245 AC 04/18 PO 2244 Metronidazole 500 MG IQ8 04/19 1600 AC N/A 1 UNIT IV Midazolam HCl 2 MG .STK-MED ONE 04/18 1624 DC IM 04/18 1625 Oxycodone/ 2 TAB Q6P PRN 04/18 2045 AC 04/18 Acetaminophen PO 203 Patient Medication 1 ED ONE ONE 04/19 1430 DC Teaching ED 04/19 1431 Phenytoin 200 MG BID 04/18 2100 AC 04/19 PO 0856 Sodium Chloride 1,000 ML Q13H 04/18 1645 DC IV Sodium Chloride 1,000 ML BOLUS ONE 04/18 1345 DC 04/18 IV 04/18 1444 1354 Tamsulosin HCl 0.4 MG DAILY 04/19 0900 AC 04/19 PO 0856 Vancomycin HCl 1,000 MG 1400 04/19 1400 AC Sodium Chloride 250 ML IV Last 24 Hrs of Lab/Av Results Last 24 Hrs of Labs/Mics: Laboratory Tests 04/19/18 0940: Anion Gap 11, Estimated GFR 42 L, BUN/Creatinine Ratio 16.3, Triglycerides 105, Cholesterol 81, LDL Cholesterol, Calc 41 L, HDL Cholesterol 19 L, Cholesterol/ HDL Ratio 4, Vitamin B12 429, TSH 1.570, Free T4 1.57, CBC w Diff NO MAN DIFF REQ, RBC 3.00 L, MCV 81.7, MCH 28.4, MCHC 34.8, RDW 13.3, MPV 7.5, Gran % 83.9 H, Lymphocytes % 6.9 L, Monocytes % 7.7, Eosinophils % 1.4, Basophils % 0.1, Absolute Granulocytes 11.0 H, Absolute Lymphocytes 0.9 L, Absolute Monocytes 1.0 H, Absolute Eosinophils 0.2, Absolute Basophils 0, Phenytoin < 3.0 L 04/19/18 0013: Lactic Acid 1.0, Phenytoin < 3.0 L 04/18/18 1530: Lactic Acid 3.8 H Microbiology 04/19 1358 BLOOD: Blood Culture - ORD 04/19 1358 BLOOD: Blood Culture - ORD 04/18 173 EXTREMITIE: Gross Specimen Examination - RES 04/18 1730 EXTREMITIE: Gram Stain - RES Assessment/Plan Assessment: Patient is a 82-year-old male history of noncompliance insulin-dependent diabetes, neuropathy, hypertension, peripheral vascular disease, dementia, previous history of osteomyelitis s/p amputations, presents with his grandchildren for evaluation after they found him in an unkempt state. Patient was initially admitted to the general medicine floor for left foot toe gangrene. Patient went for surgery one day prior. While in the PACU he had hyperglycemia to the 500s at which point endocrinology was consulted. Patient has had multiple PVCs and PVC complexes and was transferred to telemetry. Patient on telemetry is being managed for the followin. Gram positive sepsis- patient is growing gram positive cocci, was previously on Unasyn, is now being covered with Vancomycin for possible MRSA. In the setting of diabetic foot patient will be covered for anaerobes and gram negatives including pseudomonas with flagyl and ceftazidime. 2. Left toe gangrene s/p amputation - POD 1, podiatry is on board, will likely need revision next week. 3. PACs/PVCs- patient has occasional palpitations, PVCs on telemetry monitoring, cardiology consulted, currently not on beta allyson 4. Hyperglycemia, Diabetic - FSG in the 100s now. Endocrinology on board, insulin adjusted. 5. LEYDA on CKD - Creatinine improving 6. Chronic Anemia Plan: Admitted to telemetry Continue tele monitoring Cardiology consulted Monitor vitals qshift Accuchecks TIDAC/qHS Continue IV vancomycin, IV Flagyl, IV ceftaz Follow-up blood cultures for identification and sensitivity A follow-up repeat blood cultures from today Levemir 6 units twice daily NovoLog 3 times a day before meals and at bedtime sliding scale Repeat BEP. CBC in a.m. Infectious disease consulted. Appreciate recommendations Podiatry is on board. Vascular surgery consulted PT eval Continue home medication DVT prophylaxis: Heparin SQ Diet: Diabetic diet Code: Full code Problem List: 1. Gram positive sepsis 2. Necrosis of toe 3. Uncontrolled diabetes mellitus Pain Ratin Pain Location: foot Pain Goal: Pain 4 or less Pain Plan: per pain pathway Tomorrow's Labs & Rationales: cbc bep Chen Hernandez MD 04/19/18 1241: Attending MD Review Statement Attending Statement Attending MD Statement: examined this patient, discuss w/resident/PA/NETWORK PROGRAM MANAGER, agreed w/resident/PA/NETWORK PROGRAM MANAGER, reviewed EMR data (avail) Attending Assessment/Plan: 82M PMH diabetes, neuropathy, hypertension peripheral vascular disease dementia previous history of osteomyelitis s/p amputations admitted with left third toe osteomyelitis/gangrene s/p debridement on 04/18 by podiatry, now growing gram positive cocci in blood cultures, transferred to telemetry post-operatively for increased PVC's on monitor. Patient has no complaints today and feels well. He is a bit tangential in his speech. He denies chest pain, SOB, or palpitations. Lactate has normalized from 3.8, WBC improving, glucose levels remain uncontrolled. 1. Sepsis secondary to gram positive bacteremia 2. Left third toe osteomyelitis and gas gangrene 3. Multiple PVCs 4. PAD Plan - Continue on telemetry - Start Vancomycin, Ceftazidime, Flagyl - Follow blood and wound cultures - Follow ID, endocrine, podiatry recommendations - Obtain vascular consult - Monitor renal function - Discontinue IV fluids - Continue home medications - DVT PPx - Will go for debridement/TMA next week
--- NOTE | 2018-04-19 08:05 | PN- Diabetes ---
Assessment/Plan Diabetes Assessment: This patient has a history of diabetes mellitus type 2 hyperlipidemia hypertension. He presented with gangrene of his left foot and uncontrolled diabetes. He was noncompliant on his diabetic regimen at home. The patient feels okay this morning. He states that he is hungry. After the surgery last night. He is on IV D5 half-normal saline at 50 cc an hour. He is on Levemir 10 units twice a day and sliding scale NovoLog before meals. Blood sugars during the night were 126 at 2 AM and 151 at 6 AM. Plan: Suggest reduce Levemir to 6 units twice a day. In addition please adjust the sliding scale NovoLog before meals to the sliding scale recommended in my note yesterday. If patient is eating well the IV fluids can be discontinued. The patient needs repeat lab work today including CBC, BUN/creatinine and electrolytes as well as a Dilantin level. Thyroid function tests including free T4 and TSH should also be done as well as a vitamin B12 level and lipid profile. Suggest cardiology consultation. Subjective Subjective: Feels okay Objective Last 24 Hrs of Vital Signs/I&O Vital Signs Date Time Temp Pulse Resp B/P B/P Pulse O2 O2 Flow FiO2 Mean Ox Delivery Rate 04/19 0715 100.1 04/19 0631 100.0 72 20 114/50 98 Nasal Cannula 04/19 0556 100.0 04/19 0320 101.2 04/19 0000 Nasal 2.0L Cannula 04/18 2233 100.7 93 22 118/46 96 Nasal Cannula 04/18 2229 98.1 92 22 102/60 94 Nasal Cannula 04/18 1605 98.8 80 16 110/80 97 Room Air 04/18 1547 98.5 92 18 97 04/18 1544 126/53 04/18 1352 Room Air 04/18 1352 98.6 103 18 138/66 99 Room Air 04/18 1119 98.7 85 18 106/61 95 Room Air Intake & Output 04/19 1600 04/19 0800 04/19 0000 Intake Total 500 200 Output Total Balance 500 200 Intake, IV 400 Intake, Oral 100 200 Patient 192 lb 189 lb Weight Weight Bed scale Measurement Method Vital Signs Date Time Temp Pulse Resp B/P B/P Pulse O2 O2 Flow FiO2 Mean Ox Delivery Rate 04/19 0715 100.1 04/19 0631 100.0 72 20 114/50 98 Nasal Cannula 04/19 0556 100.0 04/19 0320 101.2 04/19 0000 Nasal 2.0L Cannula 04/18 2233 100.7 93 22 118/46 96 Nasal Cannula 04/18 2229 98.1 92 22 102/60 94 Nasal Cannula 04/18 1605 98.8 80 16 110/80 97 Room Air 04/18 1547 98.5 92 18 97 04/18 1544 126/53 04/18 1352 Room Air 04/18 1352 98.6 103 18 138/66 99 Room Air 04/18 1119 98.7 85 18 106/61 95 Room Air Intake & Output 04/19 1600 04/19 0800 04/19 0000 Intake Total 500 200 Output Total Balance 500 200 Intake, IV 400 Intake, Oral 100 200 Patient 192 lb 189 lb Weight Weight Bed scale Measurement Method Physical Exam General Appearance: alert, awake Head: normal appearance Neck: normal inspection Respiratory: normal breath sounds Cardiovascular: regular rate/rhythm Abdomen: normal bowel sounds Extremities: left foot bandaged Current Medications: Current Medications Sig/Aida Start time Last Medication Dose Route Stop Time Status Admin Acetaminophen 650 MG Q6P PRN 04/18 2045 AC PO Acetaminophen 1,000 MG Q6P PRN 04/18 204 AC 04/19 IV 0556 Ampicillin Sodium/ 3,000 MG Q8 04/19 1400 AC Sulbactam Sodium IV Sodium Chloride 100 ML Ampicillin Sodium/ 3,000 MG Q6 04/18 1800 DC 04/19 Sulbactam Sodium IV 0548 Sodium Chloride 100 ML Ampicillin Sodium/ 0 .STK-MED ONE 04/18 1305 DC Sulbactam Sodium .ROUTE Ampicillin Sodium/ 3,000 MG ONCE ONE 04/18 1200 DC 04/18 Sulbactam Sodium IV 04/18 1229 1315 Sodium Chloride 100 ML Atorvastatin Calcium 40 MG 1700 04/18 1700 AC 04/18 PO 1904 Dextrose/Sodium 1,000 ML Q20H 04/18 1845 AC 04/18 Chloride IV 2100 Dextrose/Sodium 1,000 ML Q13H 04/18 1600 DC Chloride IV Diltiazem HCl 240 MG DAILY 04/19 0900 AC PO Escitalopram Oxalate 10 MG DAILY 04/19 09 AC PO Fentanyl Citrate 100 MCG .STK-MED ONE 04/18 1624 DC IM 04/18 1625 Heparin Sodium 5,000 UNIT Q8 04/18 1544 AC 04/19 (Porcine) SC 0551 Insulin Aspart 0 Q4 04/18 1800 AC 04/19 SC 0555 Insulin Aspart 0 TIDAC 04/18 1700 DC SC Insulin Detemir 34 UNITS BID 04/18 2100 DC SC Insulin Detemir 10 UNITS BID 04/18 2100 AC 04/18 SC 204 Insulin Human Regular 10 UNITS ONCE ONE 04/18 1300 DC 04/18 IV 04/18 1301 1315 Melatonin 5 MG AT BEDTIME 04/19 2100 DC PO Melatonin 5 MG AT BEDTIME 04/18 2245 AC 04/18 PO 224 Midazolam HCl 2 MG .STK-MED ONE 04/18 1624 DC IM 04/18 162 Oxycodone/ 2 TAB Q6P PRN 04/18 2045 AC 04/18 Acetaminophen PO 203 Phenytoin 200 MG BID 04/18 2100 AC 04/18 PO 204 Sodium Chloride 1,000 ML Q13H 04/18 1645 DC IV Sodium Chloride 1,000 ML BOLUS ONE 04/18 1345 DC 04/18 IV 04/18 1444 1354 Sodium Chloride 1,000 ML BOLUS ONE 04/18 1145 DC 04/18 IV 04/18 1244 1251 Tamsulosin HCl 0.4 MG DAILY 04/19 0900 AC PO Findings Pertinent Lab/Av Results: Laboratory Tests 04/19 04/18 04/18 04/18 0013 1530 1255 1242 Blood Gas Bicarbonate Actual (22 - 26 MEQ/L) 24 Mixed VBG pH (7.31 - 7.41 PH) 7.39 Mixed VBG pCO2 (41 - 51 TORR) 41 Mixed VBG O2 Saturation (35 - 45 TORR) 17 L P-50 (Temp Corrected) N Carboxyhemoglobin (1.5 - 5.0 %) 0.6 L O2 Concentration % .21 Temperature (97.0 - 100.0 FARH) 98.7 O2 Delivery Method RA Chemistry Lactic Acid (0.7 - 2.1 mmol/L) 1.0 3.8 H Hematology ESR Westergren (0 - 10 MM) > 130 H Miscellaneous Phlebotomy Draw Site RIGHT A/C Toxicology Phenytoin (10.0 - 20.0 ug/mL) < 3.0 L 04/18 04/18 1210 1210 Chemistry Sodium (137 - 145 mmol/L) 126 L Potassium (3.5 - 5.1 mmol/L) 4.8 Chloride (98 - 107 mmol/L) 89 L Carbon Dioxide (22 - 30 mmol/L) 22 Anion Gap (5 - 16) 16 BUN (9 - 20 mg/dL) 32 H Creatinine (0.7 - 1.2 mg/dL) 1.7 H Estimated GFR (>60 ml/min) 39 L BUN/Creatinine Ratio (7 - 25 %) 18.8 Glucose (65 - 99 mg/dL) 564 *H Hemoglobin A1c (4.2 - 5.8 %) Pending Serum Osmolality (285 - 295 MOSM/KG) 295 Lactic Acid (0.7 - 2.1 mmol/L) 2.8 H Calcium (8.4 - 10.2 mg/dL) 8.8 Phosphorus (2.5 - 4.5 mg/dL) 4.3 Magnesium (1.6 - 2.3 mg/dL) 2.0 Iron (49 - 181 ug/dL) 32 L TIBC (261 - 462 ug/dL) 229 L Ferritin (17.9 - 464 ng/mL) 651.0 H Total Bilirubin (0.2 - 1.3 mg/dL) 1.0 AST (17 - 59 U/L) 19 ALT (21 - 72 U/L) 35 Alkaline Phosphatase (< 127 U/L) 102 Troponin I (<0.11 ng/ml) 0.01 Total Protein (6.3 - 8.2 g/dL) 6.8 Albumin (3.5 - 5.0 g/dL) 3.5 Globulin (1.9 - 4.2 gm/dL) 3.3 Albumin/Globulin Ratio (1.1 - 2.2 %) 1.1 Hematology CBC w Diff MAN DIFF ORDERED WBC (4.8 - 10.8 /CUMM) 16.6 H RBC (4.70 - 6.10 /CUMM) 3.75 L Hgb (14.0 - 18.0 G/DL) 10.7 L Hct (42 - 52 %) 30.8 L MCV (80.0 - 94.0 FL) 82.1 MCH (27.0 - 31.0 PG) 28.4 MCHC (33.0 - 37.0 G/DL) 34.6 RDW (11.5 - 14.5 %) 12.9 Plt Count (130 - 400 /CUMM) 457 H MPV (7.4 - 10.4 FL) 8.0 Gran % (42.2 - 75.2 %) 89.6 H Lymphocytes % (20.5 - 51.1 %) 4.2 L Monocytes % (1.7 - 9.3 %) 5.8 Eosinophils % (0 - 5 %) 0.3 Basophils % (0.0 - 2.0 %) 0.1 Absolute Granulocytes (1.4 - 6.5 /CUMM) 14.9 H Segmented Neutrophils (42.2 - 75.2 %) 90 H Band Neutrophils (0.0 - 5.0 %) 1 Absolute Lymphocytes (1.2 - 3.4 /CUMM) 0.7 L Lymphocytes (20.5 - 51.1 %) 3 L Monocytes (1.7 - 9.3 %) 6 Absolute Monocytes (0.10 - 0.60 /CUMM) 1.0 H Absolute Eosinophils (0.0 - 0.7 /CUMM) 0.1 Absolute Basophils (0.0 - 0.2 /CUMM) 0 Platelet Estimate (ADEQUATE) VERIFIED BY SMEAR Normocytic RBCs VERIFIED Normochromic RBCs VERIFIED Toxicology Acetone Level (NEGATIVE) NEGATIVE 04/18 1200 Urines Urine Color (YEL,AMB,STR) YEL Urine Clarity (CLEAR) CLEAR Urine pH (5.0 - 8.0) 6.0 Ur Specific [place] (1.001 - 1.035) 1.010 Urine Protein (NEG,<30 MG/DL) TRACE H Urine Ketones (NEG) NEG Urine Nitrite (NEG) NEG Urine Bilirubin (NEG) NEG Urine Urobilinogen (0.1 - 1.0 EU/dl) 0.2 Ur Leukocyte Esterase (NEG) NEG Ur Microscopic SEDIMENT EXAMINED Urine RBC (0 - 5 /HPF) RARE Urine WBC (0 - 2 /HPF) RARE Ur Epithelial Cells (NONE,FEW) OCCAS Urine Hemoglobin (NEG) TRACE-INTACT H Urine Glucose (N MG/DL) >=1000 H
[2018-04-19 10:22] LABS: ABSOLUTE BASOPHIL COUNT 0 /CUMM (0.0-0.2); ABSOLUTE EOSINOPHIL COUNT 0.2 /CUMM (0.0-0.7); ABSOLUTE LYMPH COUNT 0.9 /CUMM (1.2-3.4); BASOPHIL % 0.1 % (0.0-2.0); EOSINOPHIL % 1.4 % (0-5); MEAN CORPUSCULAR HGB 28.4 PG (27.0-31.0); MEAN CORPUSCULAR HGB CONC 34.8 G/DL (33.0-37.0); MEAN CORPUSCULAR VOLUME 81.7 FL (80.0-94.0); MEAN PLATELET VOLUME 7.5 FL (7.4-10.4); RBC DISTRIBUTION WIDTH 13.3 % (11.5-14.5); WHITE BLOOD CELL COUNT 13.1 /CUMM (4.8-10.8)
--- NOTE | 2018-04-19 10:23 | PN- Student ---
Subjective Subjective: Patient had surgical debridement and amputation of his left 3rd toe to the metatarsal last night. He denies any pain or discomfort today, nor does he report fever or chills. He did have a temperature of 100.1 earlier today however it has improved to 98.6. He was moved to telemetry as it was reported that he has had a history of PVCs and palpitations. Objective Objective: Current Medications Sig/Aida Start time Last Medication Dose Route Stop Time Status Admin Acetaminophen 650 MG Q6P PRN 04/18 204 AC PO Acetaminophen 1,000 MG Q6P PRN 04/18 2045 AC 04/19 IV 0556 Ampicillin Sodium/ 3,000 MG Q8 04/19 1400 AC Sulbactam Sodium IV Sodium Chloride 100 ML Ampicillin Sodium/ 3,000 MG Q6 04/18 1800 DC 04/19 Sulbactam Sodium IV 0548 Sodium Chloride 100 ML Ampicillin Sodium/ 0 .STK-MED ONE 04/18 1305 DC Sulbactam Sodium .ROUTE Ampicillin Sodium/ 3,000 MG ONCE ONE 04/18 1200 DC 04/18 Sulbactam Sodium IV 04/18 1229 1315 Sodium Chloride 100 ML Atorvastatin Calcium 40 MG 1700 04/18 1700 AC 04/18 PO 1904 Dextrose/Sodium 1,000 ML Q20H 04/18 1845 AC 04/18 Chloride IV 2100 Dextrose/Sodium 1,000 ML Q13H 04/18 1600 DC Chloride IV Diltiazem HCl 240 MG DAILY 04/19 0900 AC 04/19 PO 0856 Escitalopram Oxalate 10 MG DAILY 04/19 0900 AC 04/19 PO 0855 Fentanyl Citrate 100 MCG .STK-MED ONE 04/18 1624 DC IM 04/18 1625 Heparin Sodium 5,000 UNIT Q8 04/18 1544 AC 04/19 (Porcine) SC 0551 Insulin Aspart 0 AT BEDTIME 04/19 2100 AC SC Insulin Aspart 0 TIDAC 04/19 1200 AC SC Insulin Aspart 0 Q4 04/18 1800 DC 04/19 SC 0555 Insulin Aspart 0 TIDAC 04/18 1700 DC SC Insulin Detemir 6 UNITS BID 04/19 0900 AC 04/19 SC 0855 Insulin Detemir 34 UNITS BID 04/18 2100 DC SC Insulin Detemir 10 UNITS BID 04/18 2100 DC 04/18 SC 2042 Insulin Human Regular 10 UNITS ONCE ONE 04/18 1300 DC 04/18 IV 04/18 1301 1315 Melatonin 5 MG AT BEDTIME 04/19 2100 DC PO Melatonin 5 MG AT BEDTIME 04/18 2245 AC 04/18 PO 2244 Midazolam HCl 2 MG .STK-MED ONE 04/18 1624 DC IM 04/18 1625 Oxycodone/ 2 TAB Q6P PRN 04/18 204 AC 04/18 Acetaminophen PO 203 Phenytoin 200 MG BID 04/18 2100 AC 04/19 PO 0856 Sodium Chloride 1,000 ML Q13H 04/18 1645 DC IV Sodium Chloride 1,000 ML BOLUS ONE 04/18 1345 DC 04/18 IV 04/18 1444 1354 Sodium Chloride 1,000 ML BOLUS ONE 04/18 1145 DC 04/18 IV 04/18 1244 1251 Tamsulosin HCl 0.4 MG DAILY 04/19 0900 AC 04/19 PO 0856 Laboratory Tests 04/19 04/19 04/18 04/18 0940 0013 1530 1255 Blood Gas Bicarbonate Actual (22 - 26 MEQ/L) 24 Mixed VBG pH (7.31 - 7.41 PH) 7.39 Mixed VBG pCO2 (41 - 51 TORR) 41 Mixed VBG O2 Saturation (35 - 45 TORR) 17 L P-50 (Temp Corrected) N Carboxyhemoglobin (1.5 - 5.0 %) 0.6 L O2 Concentration % .21 Temperature (97.0 - 100.0 FARH) 98.7 O2 Delivery Method RA Chemistry Sodium Pending Potassium Pending Chloride Pending Carbon Dioxide Pending Anion Gap Pending BUN Pending Creatinine Pending BUN/Creatinine Ratio Pending Lactic Acid (0.7 - 2.1 mmol/L) 1.0 3.8 H Triglycerides Pending Cholesterol Pending LDL Cholesterol, Calc Pending HDL Cholesterol Pending Cholesterol/HDL Ratio Pending Vitamin B12 Pending TSH Pending Free T4 Pending Hematology CBC w Diff Pending WBC Pending RBC Pending Hgb Pending Hct Pending MCV Pending MCH Pending MCHC Pending RDW Pending Plt Count Pending MPV Pending Miscellaneous Phlebotomy Draw Site RIGHT A/C Toxicology Phenytoin (10.0 - 20.0 ug/mL) Pending < 3.0 L 04/18 04/18 04/18 1242 1210 1210 Chemistry Sodium (137 - 145 mmol/L) 126 L Potassium (3.5 - 5.1 mmol/L) 4.8 Chloride (98 - 107 mmol/L) 89 L Carbon Dioxide (22 - 30 mmol/L) 22 Anion Gap (5 - 16) 16 BUN (9 - 20 mg/dL) 32 H Creatinine (0.7 - 1.2 mg/dL) 1.7 H Estimated GFR (>60 ml/min) 39 L BUN/Creatinine Ratio (7 - 25 %) 18.8 Glucose (65 - 99 mg/dL) 564 *H Hemoglobin A1c (4.2 - 5.8 %) 11.5 H Serum Osmolality (285 - 295 MOSM/KG) 295 Lactic Acid (0.7 - 2.1 mmol/L) 2.8 H Calcium (8.4 - 10.2 mg/dL) 8.8 Phosphorus (2.5 - 4.5 mg/dL) 4.3 Magnesium (1.6 - 2.3 mg/dL) 2.0 Iron (49 - 181 ug/dL) 32 L TIBC (261 - 462 ug/dL) 229 L Ferritin (17.9 - 464 ng/mL) 651.0 H Total Bilirubin (0.2 - 1.3 mg/dL) 1.0 AST (17 - 59 U/L) 19 ALT (21 - 72 U/L) 35 Alkaline Phosphatase (< 127 U/L) 102 Troponin I (<0.11 ng/ml) 0.01 Total Protein (6.3 - 8.2 g/dL) 6.8 Albumin (3.5 - 5.0 g/dL) 3.5 Globulin (1.9 - 4.2 gm/dL) 3.3 Albumin/Globulin Ratio (1.1 - 2.2 %) 1.1 Hematology CBC w Diff MAN DIFF ORDERED WBC (4.8 - 10.8 /CUMM) 16.6 H RBC (4.70 - 6.10 /CUMM) 3.75 L Hgb (14.0 - 18.0 G/DL) 10.7 L Hct (42 - 52 %) 30.8 L MCV (80.0 - 94.0 FL) 82.1 MCH (27.0 - 31.0 PG) 28.4 MCHC (33.0 - 37.0 G/DL) 34.6 RDW (11.5 - 14.5 %) 12.9 Plt Count (130 - 400 /CUMM) 457 H MPV (7.4 - 10.4 FL) 8.0 Gran % (42.2 - 75.2 %) 89.6 H Lymphocytes % (20.5 - 51.1 %) 4.2 L Monocytes % (1.7 - 9.3 %) 5.8 Eosinophils % (0 - 5 %) 0.3 Basophils % (0.0 - 2.0 %) 0.1 Absolute Granulocytes (1.4 - 6.5 /CUMM) 14.9 H Segmented Neutrophils (42.2 - 75.2 %) 90 H Band Neutrophils (0.0 - 5.0 %) 1 Absolute Lymphocytes (1.2 - 3.4 /CUMM) 0.7 L Lymphocytes (20.5 - 51.1 %) 3 L Monocytes (1.7 - 9.3 %) 6 Absolute Monocytes (0.10 - 0.60 /CUMM) 1.0 H Absolute Eosinophils (0.0 - 0.7 /CUMM) 0.1 Absolute Basophils (0.0 - 0.2 /CUMM) 0 Platelet Estimate (ADEQUATE) VERIFIED BY SMEAR Normocytic RBCs VERIFIED Normochromic RBCs VERIFIED ESR Westergren (0 - 10 MM) > 130 H Toxicology Acetone Level (NEGATIVE) NEGATIVE 04/18 1200 Urines Urine Color (YEL,AMB,STR) YEL Urine Clarity (CLEAR) CLEAR Urine pH (5.0 - 8.0) 6.0 Ur Specific [place] (1.001 - 1.035) 1.010 Urine Protein (NEG,<30 MG/DL) TRACE H Urine Ketones (NEG) NEG Urine Nitrite (NEG) NEG Urine Bilirubin (NEG) NEG Urine Urobilinogen (0.1 - 1.0 EU/dl) 0.2 Ur Leukocyte Esterase (NEG) NEG Ur Microscopic SEDIMENT EXAMINED Urine RBC (0 - 5 /HPF) RARE Urine WBC (0 - 2 /HPF) RARE Ur Epithelial Cells (NONE,FEW) OCCAS Urine Hemoglobin (NEG) TRACE-INTACT H Urine Glucose (N MG/DL) >=1000 H Microbiology Date/Time Procedure - Status Source Growth 04/18 1730 [facility] Spec[facility] 04/18 173 Gram Stain - [facility] 04/18 1242 Blood Culture - RES BLOOD GRAM POSITIVE [facility] 05/24 1210 Blood Culture - RES BLOOD GRAM POSITIVE COCCI Vital Signs Date Time Temp Pulse Resp B/P B/P Pulse O2 O2 Flow FiO2 Mean Ox Delivery Rate 04/19 1001 99.3 04/19 0856 90 114/58 04/19 0715 100.1 04/19 0631 100.0 72 20 114/50 98 Nasal Cannula 04/19 0556 100.0 04/19 0320 101.2 Physical Exam: Gen: AOx3, no evidence of acute distress CV: normal S1/S2, regular rate, no MRG Pulm: clear to auscultation, no wheeze, rubs, rales, or ronchi Abd: normal bowel sounds, soft, non tender Ext: left foot fully dressed post surgical debridement and amputation of left 3rd toe, previous amputations/partial amputations on right foot of 1st and 4th toes Assessment/Plan Assessment: Mr. Santos is an 82 year old male with a PMHx significant for noncompliant insulin dependent T2DM, HTN, PVD, dementia, previous osteomyelitis s/p amputations that presented to the hospital with apparent left 3rd toe infection. Upon further evaluation it was found to be gangrenous and required surgical intervention from Dr. Rocha. Surgical debridement and amputation of the 3rd left toe was performed and the bone was sent for culture. He was moved to telemtry due to history of PVCs and palpitations in the past for further cardiac evaluation. Plan: Problem List: 1. Left 3rd toe gangrene 2. Sepsis 3. PVCs 4. Chronic medical conditions #Left 3rd toe gangrene: Patient has uncontrolled T2DM and increased risk for infection. He also has a history of prior infections requiring amputation. Yesterday he was taken to the OR for surgical intervention of his gangrenous 3rd left toe. Dr. Rocha performed debridement up to the 3rd metatarsal and amputation of the 3rd toe. The wound was wrapped, but did not show signs of bleeding, drainage of any kind. He had a fever of 100.1 this morning however that has improved to 98.6 and the patient has no complaints. Amputated 3rd left toe was sent for culture and is still pending. However as he has bactermia positive for Gram + cocci, he was started on Vancomycin until full sensitivity comes back. He is being followed by podiatry, endocrinology and ID. -continue vancomycin -follow blood cultures -follow bone culture -continue percocet pain management -appreciate ID, Endocrine, podiatry recommendations -keep dressing clean and dry #Sepsis: Patient has + bactermia, hematologic seeding likely from the infection that started in his left 3rd toe. Blood cultures from 04/18/18 reveals gram + cocci, thus he was started on vancomycin, blood cultures were repeated on 04/19 and are still pending. Cultrue from the removed 3rd left toe is also pending. -continue IV abx -appreciate ID recommendations -keep dressing clean and dry -follow cultures #PVCs: Patient reports feeling occasional palpitations but does not report any chest pain. He has had PVCs on telemetry monitoring. Cardiology has been consulted for this reason. -appreciate cardiology recommendations -continue telemetry #Chronic medical conditions -T2DM:follow Blood glucose levels via finger stick follow insulin sliding scale per Dr. Oh's note long acting insulin 6 units BID -continue all other medications as prescribed DVT ppx: Heparin Q8 SC ADA recommended diet Full code
--- NOTE | 2018-04-19 10:32 | PN- Infect Dx ---
Subjective Subjective: T-max 101.2. He feels well with no complaints. He was apparently moved to telemetry because of PVCs. Objective Last 24 Hrs of Vital Signs/I&O Vital Signs Date Time Temp Pulse Resp B/P B/P Pulse O2 O2 Flow FiO2 Mean Ox Delivery Rate 04/19 1001 99.3 04/19 0856 90 114/58 04/19 0715 100.1 04/19 0631 100.0 72 20 114/50 98 Nasal Cannula 04/19 0556 100.0 04/19 0320 101.2 04/19 0000 Nasal 2.0L Cannula 04/18 2233 100.7 93 22 118/46 96 Nasal Cannula 04/18 2229 98.1 92 22 102/60 94 Nasal Cannula 04/18 1605 98.8 80 16 110/80 97 Room Air 04/18 1547 98.5 92 18 97 04/18 1544 126/53 04/18 1352 Room Air 04/18 1352 98.6 103 18 138/66 99 Room Air 04/18 1119 98.7 85 18 106/61 95 Room Air Intake & Output 04/19 1600 04/19 0800 04/19 0000 Intake Total 500 200 Output Total Balance 500 200 Intake, IV 400 Intake, Oral 100 200 Patient 192 lb 189 lb Weight Weight Bed scale Measurement Method Physical Exam Other Physical Findings: He appears comfortable in no acute distress Lungs are clear Heart regular rhythm without murmur Extremities left foot dressing intact Results Last 24 Hours of Lab Results: Laboratory Tests 04/19 04/19 04/18 04/18 0940 0013 1530 1255 Blood Gas Bicarbonate Actual (22 - 26 MEQ/L) 24 Mixed VBG pH (7.31 - 7.41 PH) 7.39 Mixed VBG pCO2 (41 - 51 TORR) 41 Mixed VBG O2 Saturation (35 - 45 TORR) 17 L P-50 (Temp Corrected) N Carboxyhemoglobin (1.5 - 5.0 %) 0.6 L O2 Concentration % .21 Temperature (97.0 - 100.0 FARH) 98.7 O2 Delivery Method RA Chemistry Sodium Pending Potassium Pending Chloride Pending Carbon Dioxide Pending Anion Gap Pending BUN Pending Creatinine Pending BUN/Creatinine Ratio Pending Lactic Acid (0.7 - 2.1 mmol/L) 1.0 3.8 H Triglycerides Pending Cholesterol Pending LDL Cholesterol, Calc Pending HDL Cholesterol Pending Cholesterol/HDL Ratio Pending Vitamin B12 Pending TSH Pending Free T4 Pending Hematology CBC w Diff Pending WBC Pending RBC Pending Hgb Pending Hct Pending MCV Pending MCH Pending MCHC Pending RDW Pending Plt Count Pending MPV Pending Miscellaneous Phlebotomy Draw Site RIGHT A/C Toxicology Phenytoin (10.0 - 20.0 ug/mL) Pending < 3.0 L 04/18 04/18 04/18 1242 1210 1210 Chemistry Sodium (137 - 145 mmol/L) 126 L Potassium (3.5 - 5.1 mmol/L) 4.8 Chloride (98 - 107 mmol/L) 89 L Carbon Dioxide (22 - 30 mmol/L) 22 Anion Gap (5 - 16) 16 BUN (9 - 20 mg/dL) 32 H Creatinine (0.7 - 1.2 mg/dL) 1.7 H Estimated GFR (>60 ml/min) 39 L BUN/Creatinine Ratio (7 - 25 %) 18.8 Glucose (65 - 99 mg/dL) 564 *H Hemoglobin A1c (4.2 - 5.8 %) 11.5 H Serum Osmolality (285 - 295 MOSM/KG) 295 Lactic Acid (0.7 - 2.1 mmol/L) 2.8 H Calcium (8.4 - 10.2 mg/dL) 8.8 Phosphorus (2.5 - 4.5 mg/dL) 4.3 Magnesium (1.6 - 2.3 mg/dL) 2.0 Iron (49 - 181 ug/dL) 32 L TIBC (261 - 462 ug/dL) 229 L Ferritin (17.9 - 464 ng/mL) 651.0 H Total Bilirubin (0.2 - 1.3 mg/dL) 1.0 AST (17 - 59 U/L) 19 ALT (21 - 72 U/L) 35 Alkaline Phosphatase (< 127 U/L) 102 Troponin I (<0.11 ng/ml) 0.01 Total Protein (6.3 - 8.2 g/dL) 6.8 Albumin (3.5 - 5.0 g/dL) 3.5 Globulin (1.9 - 4.2 gm/dL) 3.3 Albumin/Globulin Ratio (1.1 - 2.2 %) 1.1 Hematology CBC w Diff MAN DIFF ORDERED WBC (4.8 - 10.8 /CUMM) 16.6 H RBC (4.70 - 6.10 /CUMM) 3.75 L Hgb (14.0 - 18.0 G/DL) 10.7 L Hct (42 - 52 %) 30.8 L MCV (80.0 - 94.0 FL) 82.1 MCH (27.0 - 31.0 PG) 28.4 MCHC (33.0 - 37.0 G/DL) 34.6 RDW (11.5 - 14.5 %) 12.9 Plt Count (130 - 400 /CUMM) 457 H MPV (7.4 - 10.4 FL) 8.0 Gran % (42.2 - 75.2 %) 89.6 H Lymphocytes % (20.5 - 51.1 %) 4.2 L Monocytes % (1.7 - 9.3 %) 5.8 Eosinophils % (0 - 5 %) 0.3 Basophils % (0.0 - 2.0 %) 0.1 Absolute Granulocytes (1.4 - 6.5 /CUMM) 14.9 H Segmented Neutrophils (42.2 - 75.2 %) 90 H Band Neutrophils (0.0 - 5.0 %) 1 Absolute Lymphocytes (1.2 - 3.4 /CUMM) 0.7 L Lymphocytes (20.5 - 51.1 %) 3 L Monocytes (1.7 - 9.3 %) 6 Absolute Monocytes (0.10 - 0.60 /CUMM) 1.0 H Absolute Eosinophils (0.0 - 0.7 /CUMM) 0.1 Absolute Basophils (0.0 - 0.2 /CUMM) 0 Platelet Estimate (ADEQUATE) VERIFIED BY SMEAR Normocytic RBCs VERIFIED Normochromic RBCs VERIFIED ESR Westergren (0 - 10 MM) > 130 H Toxicology Acetone Level (NEGATIVE) NEGATIVE 04/18 1200 Urines Urine Color (YEL,AMB,STR) YEL Urine Clarity (CLEAR) CLEAR Urine pH (5.0 - 8.0) 6.0 Ur Specific [place] (1.001 - 1.035) 1.010 Urine Protein (NEG,<30 MG/DL) TRACE H Urine Ketones (NEG) NEG Urine Nitrite (NEG) NEG Urine Bilirubin (NEG) NEG Urine Urobilinogen (0.1 - 1.0 EU/dl) 0.2 Ur Leukocyte Esterase (NEG) NEG Ur Microscopic SEDIMENT EXAMINED Urine RBC (0 - 5 /HPF) RARE Urine WBC (0 - 2 /HPF) RARE Ur Epithelial Cells (NONE,FEW) OCCAS Urine Hemoglobin (NEG) TRACE-INTACT H Urine Glucose (N MG/DL) >=1000 H Last 24 Hours of Av Results: Blood cultures 2 April 18 positive for gram-positive cocci in clusters OR culture April 18 labeled left third toe bone pending Assessment/Plan ID Impression: Stable, though with recent fevers postop, status post open partial third ray resection of the left foot yesterday for gangrene/osteomyelitis. He is on Unasyn but, with positive blood cultures for gram-positive cocci in clusters, his antibiotics will need to be adjusted, particularly to cover MRSA, which has been isolated from previous cultures. Given the appearance of his foot and foul odor anaerobes and gram negatives should also be covered pending final OR cultures. He is scheduled for a return to the OR next week for further debridement/possible TMA. His vascular status is clearly compromised and he would benefit from vascular surgery evaluation. Suggestion: 1. Repeat blood cultures 2 2. Echocardiogram 3. Follow-up final OR and blood cultures 4. Await return to the OR next week for possible TMA per Podiatry 5. Vascular surgery evaluation 6. Discontinue Unasyn 7. Begin Vancomycin 1 g IV every 24 hours, Flagyl 500 mg IV every 8 hours and Ceftazidime 1 g IV every 12 hours pending above Natalie Shah MD will be covering over the weekend
[2018-04-19 10:35] LABS: HEMATOCRIT 24.5 % (42-52)
[2018-04-19 10:50] LABS: PLATELET COUNT 361 /CUMM (130-400)
[2018-04-19 10:51] LABS: GRANULOCYTE % 83.9 % (42.2-75.2)
[2018-04-19 14:00] VITALS: BP 122/64
[2018-04-19 23:14] VITALS: BP 116/54
[2018-04-20 06:42] VITALS: BP 98/54
[2018-04-20 08:29] LABS: ABSOLUTE BASOPHIL COUNT 0 /CUMM (0.0-0.2); ABSOLUTE EOSINOPHIL COUNT 0.2 /CUMM (0.0-0.7); ABSOLUTE GRANULOCYTE CT 10.3 /CUMM (1.4-6.5); ABSOLUTE MONOCYTE COUNT 0.7 /CUMM (0.10-0.60); BASOPHIL % 0.3 % (0.0-2.0); EOSINOPHIL % 1.3 % (0-5); HEMATOCRIT 26.2 % (42-52); MEAN CORPUSCULAR HGB 28.4 PG (27.0-31.0); MEAN CORPUSCULAR HGB CONC 34.3 G/DL (33.0-37.0); MEAN CORPUSCULAR VOLUME 82.8 FL (80.0-94.0); MEAN PLATELET VOLUME 7.8 FL (7.4-10.4); PLATELET COUNT 393 /CUMM (130-400); RBC DISTRIBUTION WIDTH 13.4 % (11.5-14.5); RED BLOOD CELL CT 3.17 /CUMM (4.70-6.10); WHITE BLOOD CELL COUNT 12.1 /CUMM (4.8-10.8)
--- NOTE | 2018-04-20 09:13 | PN- Housestaff ---
Bud MONTE,[facility] 04/20/18 0912: Subjective Follow-up For: MRSA Bacteremia Left toe gangrene s/p amputation PACs/PVCs Hyperglycemia Tele-Events Since Last Visit: NSR with PVCs HR 66-78 Subjective: Patients family at bedside, updated in detail. Patient currently denies any symptoms except for pain in his left foot last night now controlled with pain medications. Review of Systems Constitutional: Reports: no symptoms. EENTM: Reports: no symptoms. Cardiovascular: Reports: no symptoms. Respiratory: Reports: no symptoms. Gastrointestinal: Reports: no symptoms. Genitourinary: Reports: no symptoms. Musculoskeletal: Reports: no symptoms. Skin: Reports: no symptoms. Neurological/Psychological: Reports: no symptoms. Hematologic/Endocrine: Reports: no symptoms. Immunologic/Allergic: Reports: no symptoms. Objective Last 24 Hrs of Vital Signs/I&O Vital Signs Date Time Temp Pulse Resp B/P B/P Pulse O2 O2 Flow FiO2 Mean Ox Delivery Rate 04/20 1548 110/58 04/20 1501 98.6 66 18 96/40 92 Room Air 04/20 0811 97 120/62 04/20 0642 98.5 70 18 98/54 96 Room Air 04/19 2314 97.5 80 18 116/54 95 Room Air Intake & Output 04/20 1600 04/20 0800 04/20 0000 Intake Total 700 400 Output Total 300 200 Balance 400 -200 400 Intake, IV 300 Intake, Oral 400 400 Output, Urine 300 200 Patient 188 lb Weight Weight Bed scale Measurement Method Physical Exam General Appearance: Alert, Oriented X3, Cooperative, No Acute Distress Skin: No Rashes, No Breakdown Cardiovascular: Regular Rate, Normal S1, Normal S2 Lungs: Clear to Auscultation, Normal Air Movement Abdomen: Normal Bowel Sounds, Soft, No Tenderness Extremities: No Clubbing, No Cyanosis, No Edema, s/p bilateral great toe amputation. left foot covered with dressing. Current Medications: Current Medications Sig/Aida Start time Last Medication Dose Route Stop Time Status Admin Acetaminophen 650 MG Q6P PRN 04/18 2045 AC PO Acetaminophen 1,000 MG Q6P PRN 04/18 2045 AC 04/19 IV 0556 Atorvastatin Calcium 40 MG 1700 04/18 1700 AC / PO 1641 Ceftazidime 1,000 MG 0200,1400 04/19 1400 AC 04/20 IV 1253 Dextrose/Sodium 1,000 ML Q20H 04/18 1845 DC 04/19 Chloride IV 1402 Diltiazem HCl 240 MG DAILY 04/19 09 AC 04/20 PO 0811 Escitalopram Oxalate 10 MG DAILY 04/19 0900 AC 04/20 PO 0809 Heparin Sodium 5,000 UNIT Q8 04/18 1544 AC 04/20 (Porcine) SC 1252 Insulin Aspart 0 AT BEDTIME 04/19 2100 AC 04/19 SC 2153 Insulin Aspart 0 TIDAC 04/19 1200 AC 04/20 SC 1253 Insulin Detemir 7 UNITS BID 04/20 2100 AC SC Insulin Detemir 6 UNITS BID 04/19 0900 DC 04/20 SC 0809 Melatonin 5 MG AT BEDTIME 04/18 2245 AC 04/19 PO 2131 Metronidazole 500 MG IQ8 04/19 1600 AC 04/20 N/A 1 UNIT IV 0811 Oxycodone/ 2 TAB Q6P PRN 04/18 204 AC 04/18 Acetaminophen PO 203 Phenytoin 200 MG BID 04/18 2100 AC 04/20 PO 0811 Tamsulosin HCl 0.4 MG DAILY 04/19 09 AC 04/20 PO 0811 Vancomycin HCl 1,000 MG 1400 04/19 1400 AC 04/20 Sodium Chloride 250 ML IV 1253 Last 24 Hrs of Lab/Av Results Last 24 Hrs of Labs/Mics: Laboratory Tests 04/20/18 0730: Anion Gap 12, Estimated GFR 49 L, BUN/Creatinine Ratio 13.6, CBC w Diff NO MAN DIFF REQ, RBC 3.17 L, MCV 82.8, MCH 28.4, MCHC 34.3, RDW 13.4, MPV 7.8, Gran % 84.7 H, Lymphocytes % 8.2 L, Monocytes % 5.5, Eosinophils % 1.3, Basophils % 0.3, Absolute Granulocytes 10.3 H, Absolute Lymphocytes 1.0 L, Absolute Monocytes 0.7 H, Absolute Eosinophils 0.2, Absolute Basophils 0 Assessment/Plan Assessment: Patient is a 82-year-old male history of noncompliance insulin-dependent diabetes, neuropathy, hypertension, peripheral vascular disease, dementia, previous history of osteomyelitis s/p amputations, presents with his grandchildren for evaluation after they found him in an unkempt state. Patient was initially admitted to the general medicine floor for left foot toe gangrene. Patient went for surgery one day prior. While in the PACU he had hyperglycemia to the 500s at which point endocrinology was consulted. Patient has had multiple PVCs and PVC complexes and was transferred to telemetry. Patient on telemetry is being managed for the followin. Gram positive sepsis- patient is growing MRSA in blood cultures,covered with Vancomycin. OR cultures growing gram-negative rods, awaiting final cultures and send sensitivities. In the setting of diabetic foot patient will be covered for anaerobes and gram negatives including pseudomonas with flagyl and ceftazidime. 2. Left toe gangrene s/p amputation - POD 1, podiatry is on board, will likely need revision next week. 3. PACs/PVCs- patient has occasional palpitations, PVCs on telemetry monitoring, cardiology consulted, currently not on beta allyson 4. Hyperglycemia, Diabetic - FSG in the 100s now. Endocrinology on board, insulin adjusted. 5. LEYDA on CKD - Creatinine improving 6. Chronic Anemia Plan: Continue tele monitoring Cardiology consulted; appreciate recommendations Monitor vitals qshift Accuchecks TIDAC/qHS Continue IV vancomycin, IV Flagyl, IV ceftaz Follow-up repeat blood cultures Follow-up findings OR cultures Levemir increased to 7 units twice daily NovoLog 3 times a day before meals and at bedtime sliding scale Repeat BEP. CBC in a.m. Infectious disease consulted. Appreciate recommendations Podiatry is on board. Vascular surgery consulted; awaiting recommendations PT eval Continue home medication DVT prophylaxis: Heparin SQ Diet: Diabetic diet Code: Full code Problem List: 1. Gram positive sepsis 2. Necrosis of toe Pain Ratin Pain Location: Left foot Pain Goal: Remain pain free Pain Plan: Pain Pathway Tomorrow's Labs & Rationales: CBC,BEP Chen Hernandez MD 04/20/18 6437: Attending MD Review Statement Attending Statement Attending MD Statement: examined this patient, discuss w/resident/PA/CHANGE CONTROL COORDINATOR, agreed w/resident/PA/CHANGE CONTROL COORDINATOR, reviewed EMR data (avail) Attending Assessment/Plan: 82M PMH diabetes, neuropathy, hypertension peripheral vascular disease dementia previous history of osteomyelitis s/p amputations admitted with left third toe osteomyelitis/gangrene s/p debridement on 04/18 by podiatry, now growing gram positive cocci in blood cultures, transferred to telemetry post-operatively for increased PVC's on monitor. Patient has no complaints today and feels well. He is a bit tangential in his speech. He denies chest pain, SOB, or palpitations. Lactate has normalized from 3.8, WBC improving, glucose levels remain uncontrolled. Blood cultures growing mRSA 1. Sepsis secondary to mRSA bacteremia 2. Left third toe osteomyelitis and gas gangrene 3. Multiple PVCs 4. PAD Plan - Continue on telemetry - Continue Vancomycin, Ceftazidime, Flagyl - Follow blood and wound cultures - Follow ID, endocrine, podiatry recommendations - Obtain vascular consult - Monitor renal function - Discontinue IV fluids - Continue home medications - DVT PPx - Will go for debridement/TMA next week
[2018-04-20 10:18] LABS: GRANULOCYTE % 84.7 % (42.2-75.2)
--- NOTE | 2018-04-20 11:27 | PN- Diabetes ---
Assessment/Plan Diabetes Assessment: This 82 year old male has a long-standing history of type 2 diabetes. He was found to have gangrene and osteomyelitis involving his left foot. He underwent the procedures. Currently he is on levemir 6 units twice a day, Novolog coverage before meals and Novolog coverage at bedtime. His FSGs were 151, 202, 228, 363, 269 and 201. Plan: 1. increase Levemir to 7 units twice aday; 2. continue the current Novolog cooverage before meals and Novolog coverage at bedtime; 3. monitor FSGs. will follow. Subjective Subjective: He feels okay this morning. Objective Last 24 Hrs of Vital Signs/I&O Vital Signs Date Time Temp Pulse Resp B/P B/P Pulse O2 O2 Flow FiO2 Mean Ox Delivery Rate 04/20 0811 97 120/62 04/20 0642 98.5 70 18 98/54 96 Room Air 04/19 2314 97.5 80 18 116/54 95 Room Air 04/19 1400 98.6 68 22 122/64 96 Room Air Intake & Output 04/20 1600 04/20 0800 04/20 0000 Intake Total 400 Output Total 200 Balance -200 400 Intake, Oral 400 Output, Urine 200 Patient 188 lb Weight Weight Bed scale Measurement Method Findings Pertinent Lab/Av Results: Laboratory Tests 04/20 0730 Chemistry Sodium (137 - 145 mmol/L) 136 L Potassium (3.5 - 5.1 mmol/L) 4.4 Chloride (98 - 107 mmol/L) 101 Carbon Dioxide (22 - 30 mmol/L) 22 Anion Gap (5 - 16) 12 BUN (9 - 20 mg/dL) 19 Creatinine (0.7 - 1.2 mg/dL) 1.4 H Estimated GFR (>60 ml/min) 49 L BUN/Creatinine Ratio (7 - 25 %) 13.6 Hematology CBC w Diff NO MAN DIFF REQ WBC (4.8 - 10.8 /CUMM) 12.1 H RBC (4.70 - 6.10 /CUMM) 3.17 L Hgb (14.0 - 18.0 G/DL) 9.0 L Hct (42 - 52 %) 26.2 L MCV (80.0 - 94.0 FL) 82.8 MCH (27.0 - 31.0 PG) 28.4 MCHC (33.0 - 37.0 G/DL) 34.3 RDW (11.5 - 14.5 %) 13.4 Plt Count (130 - 400 /CUMM) 393 MPV (7.4 - 10.4 FL) 7.8 Gran % (42.2 - 75.2 %) 84.7 H Lymphocytes % (20.5 - 51.1 %) 8.2 L Monocytes % (1.7 - 9.3 %) 5.5 Eosinophils % (0 - 5 %) 1.3 Basophils % (0.0 - 2.0 %) 0.3 Absolute Granulocytes (1.4 - 6.5 /CUMM) 10.3 H Absolute Lymphocytes (1.2 - 3.4 /CUMM) 1.0 L Absolute Monocytes (0.10 - 0.60 /CUMM) 0.7 H Absolute Eosinophils (0.0 - 0.7 /CUMM) 0.2 Absolute Basophils (0.0 - 0.2 /CUMM) 0
--- NOTE | 2018-04-20 14:55 | PN- Infect Dx ---
Subjective Subjective: No fever. Review of Systems Comments: 12 points reviewed as noted otherwise negative Objective Last 24 Hrs of Vital Signs/I&O Vital Signs Date Time Temp Pulse Resp B/P B/P Pulse O2 O2 Flow FiO2 Mean Ox Delivery Rate 04/20 0811 97 120/62 04/20 0642 98.5 70 18 98/54 96 Room Air 04/19 2314 97.5 80 18 116/54 95 Room Air Intake & Output 04/20 1600 04/20 0800 04/20 0000 Intake Total 700 400 Output Total 300 200 Balance 400 -200 400 Intake, IV 300 Intake, Oral 400 400 Output, Urine 300 200 Patient 188 lb Weight Weight Bed scale Measurement Method Physical Exam Other Physical Findings: He appears comfortable in no acute distress Lungs are clear Heart regular rhythm without murmur Extremities left foot dressing intact Results Last 24 Hours of Lab Results: Laboratory Tests 04/20 0730 Chemistry Sodium (137 - 145 mmol/L) 136 L Potassium (3.5 - 5.1 mmol/L) 4.4 Chloride (98 - 107 mmol/L) 101 Carbon Dioxide (22 - 30 mmol/L) 22 Anion Gap (5 - 16) 12 BUN (9 - 20 mg/dL) 19 Creatinine (0.7 - 1.2 mg/dL) 1.4 H Estimated GFR (>60 ml/min) 49 L BUN/Creatinine Ratio (7 - 25 %) 13.6 Hematology CBC w Diff NO MAN DIFF REQ WBC (4.8 - 10.8 /CUMM) 12.1 H RBC (4.70 - 6.10 /CUMM) 3.17 L Hgb (14.0 - 18.0 G/DL) 9.0 L Hct (42 - 52 %) 26.2 L MCV (80.0 - 94.0 FL) 82.8 MCH (27.0 - 31.0 PG) 28.4 MCHC (33.0 - 37.0 G/DL) 34.3 RDW (11.5 - 14.5 %) 13.4 Plt Count (130 - 400 /CUMM) 393 MPV (7.4 - 10.4 FL) 7.8 Gran % (42.2 - 75.2 %) 84.7 H Lymphocytes % (20.5 - 51.1 %) 8.2 L Monocytes % (1.7 - 9.3 %) 5.5 Eosinophils % (0 - 5 %) 1.3 Basophils % (0.0 - 2.0 %) 0.3 Absolute Granulocytes (1.4 - 6.5 /CUMM) 10.3 H Absolute Lymphocytes (1.2 - 3.4 /CUMM) 1.0 L Absolute Monocytes (0.10 - 0.60 /CUMM) 0.7 H Absolute Eosinophils (0.0 - 0.7 /CUMM) 0.2 Absolute Basophils (0.0 - 0.2 /CUMM) 0 Last 24 Hours of Av Results: SPEC #: [id number] HAYLEE: 04/18/18 STATUS: RES RECD: 04/18/[address]: Gerardo Antoine DPM SOURCE: [facility] ENTR: 04/18/[address]: Isaias MONTE,Lexie SPDESC: TOE 3 L FT Raysa MONTE,Karthikeyan Denton ORDERED: XTRMOR COMMENT: SMALL PIECE OF BONE IN STERILE CONTAINER (LEFT THIRD TOE) ADDITIONAL INFORMATION: BONE Procedure Result > GRAM STAIN Final 04/19/181216 GRAM POSITIVE COCCI PACKED GRAM NEGATIVE RODS MANY OTHER AFTER OVERNIGHT INCUBATION IN THIO > EXTREMITIES OR SPECIMEN Preliminary 04/20/1809 AFTER OVERNIGHT INCUBATION IN THIO 1. GRAM NEGATIVE RODS Identification and sensitivities to follow 2. STAPH AUREUS ISOLATED NOTE THIS IS A PRELIMINARY REPORT: IF: patient has had significant exposure to a healthcare setting in the past three (3) months, THEN: suspect Methicillin Resistant Staph aureus and place patient on Contact precautions PENDING susceptibility results TO FOLLOW PRELIMINARY Called to/Readback by ABIGAIL by VARSHA 04/20/18 0900 Recent Imaging Studies: EXAMINATION: XR FOOT, LEFT CLINICAL INFORMATION: Left third toe necrotic erythema. Evaluate osteomyelitis. COMPARISON: None TECHNIQUE: Left foot, 3 views FINDINGS: There are is ill-defined osteolysis/fragmentation of the middle and distal phalanges of the third toe, consistent with osteomyelitis. Soft tissues around the distal phalanx of the third toe are atrophied. There appear to be a few foci of gas within soft tissues around the middle phalanx and region of the PIP joint. The second toe is remotely amputated through the region of the head of the proximal phalanx. 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 A subchondral cyst is present within the proximal aspect of the navicular. Alignment is normal at the [place] and Lisfranc joints. Peripheral vessels are calcified. There are enthesophytes of the calcaneus. IMPRESSION: Osteomyelitis of the middle and distal phalanges of the third toe and apparent small foci of gas within the surrounding soft tissues. DICTATED BY: Douglas Long MD DATE/TIME DICTATED:04/18/181401 LAMINATION TECHNICIAN:JODY DATE/TIME TRANSCRIBED:04/18/181401 Assessment/Plan ID Impression: 82 y/o patient with history of diabetes mellitus type 2 poor controlled, hyperlipidemia and and hypertension, prostate cancer, status post radiation with secondary proctitis, seizure disorder and peripheral vascular disease, status post amputation of the right great toe and partial amputations of the right fourth and left second toes, admitted afer being found disheveled and incontinent at home, with a foul-smelling, necrotic left third toe. Stable, though with recent fevers postop, status post open partial third ray resection of the left foot on 04/18 for gangrene/osteomyelitis. He is on Unasyn but, with positive blood cultures positive for MRSA, his antibiotics adjusted previous day, particularly to cover MRSA and GNR including anaerrobes. He is scheduled for a return to the OR next week for further debridement/possible TMA. His vascular status is clearly compromised and he would benefit from vascular surgery evaluation. Suggestion: 1. F/u repeat blood cultures and Echocardiogram results 2. Trend CBC, BMP, vanco trogh 30 min before the 4th dose. 3. Follow-up final OR and blood cultures 4. Await return to the OR next week for possible TMA per Podiatry 5. Cont D #2 Vancomycin 1 g IV every 24 hours, Flagyl 500 mg IV every 8 hours and Ceftazidime 1 g IV every 12 hours pending above.
[2018-04-20 15:01] VITALS: BP 96/40
--- NOTE | 2018-04-20 15:02 | Cons- Cardiology ---
General Information and HPI Consulting Request Date of Consult: 04/20/18 Requested By: Chen Hernandez MD History of Present Illness: Mr. Santos is a 82 year old male with history of hypertension, dyslipidemia and diabetes. He also carries a history of peripheral vascular disease s/p toe amputations. He was brought to the ER by family who found him in an unkempt state. His granddaughter reports that she found her grandfather in soiled clothing that smelled of urine with mild confusion. The patient does have a history of dementia and non-compliance with taking his medications. In addition, a nectotic appearing toe on the left foot was noted. He went to see his primary care physician, Dr. Tabares for routine visit a few weeks ago and it was reported to him that his glucose level was in the 500s. He admits to noncompliance with his insulin and reports though he has an adequate supply he just does not use it. He has seen podiatry-Dr. Antoine in the past but has not followed up with him for the past 2-3 years. The patient himself reports that he routinely chops wood and walks without chest pain, shortness of breath, ligheheadednes or palpitations. He does have frequent premature atrial beats on his ECG. In the hospital the patient was noted to have an increased creatinine, increased WBC count with anemia and severely elevated blood glucose. Allergies/Medications Allergies: Coded Allergies: NO KNOWN ALLERGIES (04/18/18) Home Med List: Diltiazem HCl (Cardizem Cd) 240 MG CAP.ER.24H 1 CAP PO DAILY HEART (Reported) Escitalopram Oxalate (Lexapro) 10 MG TABLET 1 TAB PO DAILY MENTAL HEALTH ( Reported) Insulin Aspart (Novolog) (Unknown Strength) VIAL (Unknown Dose) SC SEE SLIDING SCALE DIABETES (Reported) Insulin Detemir (Levemir Flextouch) 100 UNIT/ML (3 ML) INSULN.PEN 68 UNITS SC DAILY DIABETES (Reported) Lisinopril (Zestril) 20 MG TABLET 1 TAB PO DAILY HEART (Reported) Phenytoin (Dilantin) 100 MG CAPSULE 2 CAP PO BID SEIZURES (Reported) Simvastatin (Simvastatin*) 40 MG TABLET 1 TAB PO QPM CHOLESTEROL (Reported) Tamsulosin HCl (Flomax) 0.4 MG CAP.ER.24H 1 CAP PO DAILY BPH (Reported) Review of Systems Review of Systems: A review of systems is not obtainable in this patient. Past History Travel History Traveled to [place] past 21 day No Medical History Neurological: NONE EENT: NONE Cardiovascular: hypertension, hyperlipidemia Respiratory: NONE Gastrointestinal: NONE Hepatic: NONE Renal: NONE Musculoskeletal: NONE Psychiatric: NONE Endocrine: diabetes Blood Disorders: NONE Cancer(s): NONE Surgical History Surgical History: RT TOE AMPUTATION Partial amputations mof the right 2nd and left 4th toes Psychosocial History Services at Home: None Smoking Status: Unknown If Ever Smoked ETOH Use: denies use Illicit Drug Use: denies illicit drug use Exam & Diagnostic Data Vital Signs and I&O Vital Signs Date Time Temp Pulse Resp B/P B/P Pulse O2 O2 Flow FiO2 Mean Ox Delivery Rate 04/20 0811 97 120/62 04/20 0642 98.5 70 18 98/54 96 Room Air 04/19 2314 97.5 80 18 116/54 95 Room Air Intake & Output 04/20 1600 04/20 0800 04/20 0000 04/19 1600 04/19 0800 04/19 0000 Intake Total 084 226 3859 500 200 Output Total 300 200 300 Balance 400 -200 400 820 500 200 Intake, IV 300 400 400 Intake, Oral 400 400 720 100 200 Number 1 Bowel Movements Output, Urine 300 200 300 Patient 188 lb 192 lb 192 lb 189 lb Weight Weight Bed scale Bed scale Measurement Method Physical Exam: General: WD/ WN male in NAD; alert and oriented x 3 HEENT: NC/AT, PERRL, EOMI Neck: no JVD, no carotid bruit Heart: RRR with ectopy, no murmur Lungs: clear bilaterally ABdomen: soft, NT, +ve bowel sounds Extremities: no edema, multiple toe amputations bilaterally Assessment/Plan Assessment/Plan * This patient has no symptoms of myocardial ischemia or decompensated congestive heart failure. He does have frequent PAC's without any discerible atrial fibrillation. Continue his current dose of statin and Diltiazem and begin aspirin unless additional surgical procedures are anticipated. * Obtain an echocardiogram Consult Acknowledgment - Thank you for your consult request.
[2018-04-20 15:48] VITALS: BP 110/58
[2018-04-20 21:35] VITALS: BP 113/56
[2018-04-21 06:58] VITALS: BP 117/56
[2018-04-21 08:27] LABS: ABSOLUTE BASOPHIL COUNT 0 /CUMM (0.0-0.2); ABSOLUTE EOSINOPHIL COUNT 0.2 /CUMM (0.0-0.7); ABSOLUTE LYMPH COUNT 0.7 /CUMM (1.2-3.4); ABSOLUTE MONOCYTE COUNT 0.6 /CUMM (0.10-0.60); BASOPHIL % 0 % (0.0-2.0); EOSINOPHIL % 2.5 % (0-5); GRANULOCYTE % 81.9 % (42.2-75.2); HEMATOCRIT 23.6 % (42-52); MEAN CORPUSCULAR HGB 27.9 PG (27.0-31.0); MEAN CORPUSCULAR HGB CONC 34.1 G/DL (33.0-37.0); MEAN CORPUSCULAR VOLUME 81.8 FL (80.0-94.0); MEAN PLATELET VOLUME 7.8 FL (7.4-10.4); PLATELET COUNT 365 /CUMM (130-400); RBC DISTRIBUTION WIDTH 13.5 % (11.5-14.5); RED BLOOD CELL CT 2.88 /CUMM (4.70-6.10); WHITE BLOOD CELL COUNT 8.5 /CUMM (4.8-10.8)
--- NOTE | 2018-04-21 08:36 | PN- Housestaff ---
Omar Camacho 04/21/18 0836: Subjective Follow-up For: MRSA Bacteremia Left toe gangrene s/p amputation PACs/PVCs Hyperglycemia Tele-Events Since Last Visit: NSR with PVCs HR 65-80 Subjective: Seen and examined patient. Daughter at bedside, offers no complaints at this time. Review of Systems Constitutional: Denies: chills, diaphoresis, fever, malaise, weakness, unexplained weight loss. Cardiovascular: Denies: chest pain, edema, orthopena, palpitations, peripheral edema, syncope. Respiratory: Denies: cough, hemoptysis, orthopnea, short of breath, sputum production, stridor, wheezing. Objective Last 24 Hrs of Vital Signs/I&O Vital Signs Date Time Temp Pulse Resp B/P B/P Pulse O2 O2 Flow FiO2 Mean Ox Delivery Rate 04/21 1018 Room Air 04/21 0741 74 117/56 04/21 0658 98.3 66 20 117/56 96 04/21 0000 Room Air 04/20 2135 99.6 68 18 113/56 94 04/20 1548 110/58 04/20 1501 98.6 66 18 96/40 92 Room Air Intake & Output 04/21 1600 04/21 0800 04/21 0000 Intake Total 100 200 Output Total Balance 100 200 Intake, IV 100 Intake, Oral 200 Physical Exam General Appearance: Alert, Oriented X3, Cooperative, No Acute Distress Cardiovascular: Normal S1, Normal S2 Lungs: Clear to Auscultation, Normal Air Movement Current Medications: Current Medications Sig/Aida Start time Last Medication Dose Route Stop Time Status Admin Acetaminophen 650 MG Q6P PRN 04/18 2045 AC PO Acetaminophen 1,000 MG Q6P PRN 04/18 2045 AC 04/19 IV 0556 Atorvastatin Calcium 40 MG 1700 04/18 1700 04/20 PO 1719 Ceftazidime 1,000 MG 0200,1400 04/19 1400 AC 04/21 IV 0136 Diltiazem HCl 240 MG DAILY 04/19 0900 AC 04/21 PO 0741 Escitalopram Oxalate 10 MG DAILY 04/19 0900 AC 04/21 PO 0741 Heparin Sodium 5,000 UNIT Q8 04/18 1544 AC 04/21 (Porcine) SC 0629 Insulin Aspart 0 AT BEDTIME 04/19 2100 AC 04/20 SC 2139 Insulin Aspart 0 TIDAC 04/19 1200 AC 04/21 SC 0742 Insulin Detemir 8 UNITS BID 04/21 2100 AC SC Insulin Detemir 7 UNITS BID 04/20 2100 DC 04/21 SC 0742 Melatonin 5 MG AT BEDTIME 04/18 2245 AC 04/20 PO 2140 Metronidazole 500 MG IQ8 04/19 1600 AC 04/21 N/A 1 UNIT IV 0742 Oxycodone/ 2 TAB Q6P PRN 04/18 2045 AC 04/18 Acetaminophen PO 2038 Phenytoin 200 MG BID 04/18 2100 AC 04/21 PO 0741 Tamsulosin HCl 0.4 MG DAILY 04/19 0900 AC 04/21 PO 0741 Vancomycin HCl 1,000 MG 1400 04/19 1400 AC 04/20 Sodium Chloride 250 ML IV 1253 Last 24 Hrs of Lab/Av Results Last 24 Hrs of Labs/Mics: Laboratory Tests 04/21/18 0713: Anion Gap 10, Estimated GFR 58 L, BUN/Creatinine Ratio 13.3, CBC w Diff NO MAN DIFF REQ, RBC 2.88 L, MCV 81.8, MCH 27.9, MCHC 34.1, RDW 13.5, MPV 7.8, Gran % 81.9 H, Lymphocytes % 8.6 L, Monocytes % 7.0, Eosinophils % 2.5, Basophils % 0 , Absolute Granulocytes 7.0 H, Absolute Lymphocytes 0.7 L, Absolute Monocytes 0.6, Absolute Eosinophils 0.2, Absolute Basophils 0 Assessment/Plan Assessment: 82-year-old gentleman history of noncompliance insulin-dependent diabetes, neuropathy, hypertension, peripheral vascular disease, dementia, previous history of osteomyelitis s/p amputations Patient was initially admitted to the general medicine floor for left third toe osteomyelitis/gangrene s/p debridement on 04/18 by podiatry, transferred to telemetry post-operatively for increased PVC's on monitor. Patient on telemetry is being managed for the followin. Gram positive sepsis- Resolved Now growing MRSA/proteus in blood cultures,covered with Vancomycin. OR cultures growing gram-negative rods, awaiting final cultures and sensitivities. In the setting of diabetic foot patient will be covered for anaerobes and gram negatives including pseudomonas with flagyl and ceftazidime. 2. Left toe gangrene s/p amputation - podiatry is on board, will need revision next week. 3. PACs/PVCs- patient has occasional palpitations, PVCs on telemetry monitoring, cardiology consulted, currently on statin and Diltiazem 4. Hyperglycemia, Diabetic - FSG in the 100s now. Endocrinology on board, insulin adjusted. 5. LEYDA on CKD - Creatinine improving 6. Chronic Anemia Plan: Continue tele monitoring Cardiology consulted; appreciate recommendations Monitor vitals qshift Accuchecks TIDAC/qHS Continue IV vancomycin will need trough level 30 minutes prior to 4th dose (April 22), IV Flagyl, IV ceftaz Follow-up repeat blood cultures Follow-up findings OR cultures Levemir increased to 7 units twice daily NovoLog 3 times a day before meals and at bedtime sliding scale Repeat BEP. CBC in a.m. Infectious disease consulted. Appreciate recommendations Podiatry is on board. Vascular surgery consulted; awaiting recommendations PT eval Continue rest of home medication DVT prophylaxis: Heparin SQ Diet: Diabetic diet Code: Full code Problem List: 1. Gram positive sepsis 2. Osteomyelitis Pain Ratin Pain Location: na Pain Goal: Pain 4 or less Pain Plan: current regimen Tomorrow's Labs & Rationales: cbc/bep Chen Hernandez MD 04/21/18 1140: Attending MD Review Statement Attending Statement Attending MD Statement: examined this patient, discuss w/resident/PA/CLINICAL STATISTICAL PROGRAMMER, agreed w/resident/PA/CLINICAL STATISTICAL PROGRAMMER, reviewed EMR data (avail) Attending Assessment/Plan: 82M PMH diabetes, neuropathy, hypertension peripheral vascular disease dementia previous history of osteomyelitis s/p amputations admitted with left third toe osteomyelitis/gangrene s/p debridement on 04/18 by podiatry, now growing gram positive cocci in blood cultures, transferred to telemetry post-operatively for increased PVC's on monitor. Patient has no complaints today and feels well. He is a bit tangential in his speech. He denies chest pain, SOB, or palpitations. Lactate has normalized from 3.8, WBC improving, glucose levels remain uncontrolled. Blood cultures growing mRSA 1. Sepsis secondary to mRSA bacteremia 2. Left third toe osteomyelitis and gas gangrene 3. Multiple PVCs 4. PAD Plan - Continue on telemetry - Continue Vancomycin, Ceftazidime, Flagyl - Follow blood and wound cultures - Follow ID, endocrine, podiatry recommendations - Obtain vascular consult - Monitor renal function - Discontinue IV fluids - Continue home medications - DVT PPx - Will go for debridement/TMA next week
--- NOTE | 2018-04-21 11:55 | PN- Diabetes ---
Assessment/Plan Diabetes Assessment: This 82 year old male has a long-standing history of type 2 diabetes. He was found to have gangrene and osteomyelitis involving his left foot. He underwent the procedures. Levemir was increased to 7 units twice a day, he is Novolog coverage before meals and Novolog coverage at bedtime. His FSGs were 201, 275, 227, 299, 169 and 218. Plan: 1. increase Levemir to 8 units twice a day; 2. continue the current novolog coverage before meals and Novolog coverage at bedtime; 3. monitor FSGs. will follow. Subjective Subjective: He feels okay. Objective Last 24 Hrs of Vital Signs/I&O Vital Signs Date Time Temp Pulse Resp B/P B/P Pulse O2 O2 Flow FiO2 Mean Ox Delivery Rate 04/21 1018 Room Air 04/21 0741 74 117/56 04/21 0658 98.3 66 20 117/56 96 04/21 0000 Room Air 04/20 2135 99.6 68 18 113/56 94 04/20 1548 110/58 04/20 1501 98.6 66 18 96/40 92 Room Air Intake & Output 04/21 1600 04/21 0800 04/21 0000 Intake Total 100 200 Output Total Balance 100 200 Intake, IV 100 Intake, Oral 200 Findings Pertinent Lab/Av Results: Laboratory Tests 04/21 0713 Chemistry Sodium (137 - 145 mmol/L) 136 L Potassium (3.5 - 5.1 mmol/L) 4.4 Chloride (98 - 107 mmol/L) 103 Carbon Dioxide (22 - 30 mmol/L) 23 Anion Gap (5 - 16) 10 BUN (9 - 20 mg/dL) 16 Creatinine (0.7 - 1.2 mg/dL) 1.2 Estimated GFR (>60 ml/min) 58 L BUN/Creatinine Ratio (7 - 25 %) 13.3 Hematology CBC w Diff NO MAN DIFF REQ WBC (4.8 - 10.8 /CUMM) 8.5 RBC (4.70 - 6.10 /CUMM) 2.88 L Hgb (14.0 - 18.0 G/DL) 8.0 L Hct (42 - 52 %) 23.6 L MCV (80.0 - 94.0 FL) 81.8 MCH (27.0 - 31.0 PG) 27.9 MCHC (33.0 - 37.0 G/DL) 34.1 RDW (11.5 - 14.5 %) 13.5 Plt Count (130 - 400 /CUMM) 365 MPV (7.4 - 10.4 FL) 7.8 Gran % (42.2 - 75.2 %) 81.9 H Lymphocytes % (20.5 - 51.1 %) 8.6 L Monocytes % (1.7 - 9.3 %) 7.0 Eosinophils % (0 - 5 %) 2.5 Basophils % (0.0 - 2.0 %) 0 Absolute Granulocytes (1.4 - 6.5 /CUMM) 7.0 H Absolute Lymphocytes (1.2 - 3.4 /CUMM) 0.7 L Absolute Monocytes (0.10 - 0.60 /CUMM) 0.6 Absolute Eosinophils (0.0 - 0.7 /CUMM) 0.2 Absolute Basophils (0.0 - 0.2 /CUMM) 0
[2018-04-21 15:12] VITALS: BP 108/58
--- NOTE | 2018-04-21 18:28 | PN- Infect Dx ---
Subjective Subjective: No Fever. Fair appetite. Review of Systems Comments: 12 points reviewed as noted, otherwise negative. Objective Last 24 Hrs of Vital Signs/I&O Vital Signs Date Time Temp Pulse Resp B/P B/P Pulse O2 O2 Flow FiO2 Mean Ox Delivery Rate 04/21 1512 98.3 66 20 108/58 93 Room Air 04/21 1018 Room Air 04/21 0741 74 117/56 04/21 0658 98.3 66 20 117/56 96 04/21 0000 Room Air 04/20 2135 99.6 68 18 113/56 94 Intake & Output 04/21 1600 04/21 0800 04/21 0000 Intake Total 700 100 200 Output Total Balance 700 100 200 Intake, IV 350 100 Intake, Oral 350 200 Number 1 Bowel Movements Physical Exam Other Physical Findings: He appears comfortable in no acute distress Lungs are clear Heart regular rhythm without murmur Extremities left foot dressing intact Results Last 24 Hours of Lab Results: Laboratory Tests 04/21 0713 Chemistry Sodium (137 - 145 mmol/L) 136 L Potassium (3.5 - 5.1 mmol/L) 4.4 Chloride (98 - 107 mmol/L) 103 Carbon Dioxide (22 - 30 mmol/L) 23 Anion Gap (5 - 16) 10 BUN (9 - 20 mg/dL) 16 Creatinine (0.7 - 1.2 mg/dL) 1.2 Estimated GFR (>60 ml/min) 58 L BUN/Creatinine Ratio (7 - 25 %) 13.3 Hematology CBC w Diff NO MAN DIFF REQ WBC (4.8 - 10.8 /CUMM) 8.5 RBC (4.70 - 6.10 /CUMM) 2.88 L Hgb (14.0 - 18.0 G/DL) 8.0 L Hct (42 - 52 %) 23.6 L MCV (80.0 - 94.0 FL) 81.8 MCH (27.0 - 31.0 PG) 27.9 MCHC (33.0 - 37.0 G/DL) 34.1 RDW (11.5 - 14.5 %) 13.5 Plt Count (130 - 400 /CUMM) 365 MPV (7.4 - 10.4 FL) 7.8 Gran % (42.2 - 75.2 %) 81.9 H Lymphocytes % (20.5 - 51.1 %) 8.6 L Monocytes % (1.7 - 9.3 %) 7.0 Eosinophils % (0 - 5 %) 2.5 Basophils % (0.0 - 2.0 %) 0 Absolute Granulocytes (1.4 - 6.5 /CUMM) 7.0 H Absolute Lymphocytes (1.2 - 3.4 /CUMM) 0.7 L Absolute Monocytes (0.10 - 0.60 /CUMM) 0.6 Absolute Eosinophils (0.0 - 0.7 /CUMM) 0.2 Absolute Basophils (0.0 - 0.2 /CUMM) 0 Last 24 Hours of Av Results: #: [id number] HAYLEE: 04/18/18 STATUS: RES RECD: 04/18/[address]: Gerardo Antoine DPM SOURCE: [facility] ENTR: 04/18/[address]: Isaias MONTE,Lexie SPDESC: TOE 3 L FT Raysa MONTE,Karthikeyan Denton ORDERED: XTRMOR COMMENT: SMALL PIECE OF BONE IN STERILE CONTAINER (LEFT THIRD TOE) ADDITIONAL INFORMATION: BONE Procedure Result > GRAM STAIN Final 04/19/18-1216 GRAM POSITIVE COCCI PACKED GRAM NEGATIVE RODS MANY OTHER AFTER OVERNIGHT INCUBATION IN THIO > EXTREMITIES OR SPECIMEN Preliminary 04/21/18-1136 AFTER OVERNIGHT INCUBATION IN THIO 1. PROTEUS MIRABILIS 2. METH RESIST STAPH AUREUS ISOLATED Called to/Readback by ABIGAIL by [facility] 04/21/18 1135 PRELIMINARY Called to/Readback by ABIGAIL by [facility] 04/20/18 0900 P.mirabili MRSA RX AB RX AB ------ -- ------ -- AMPICILLIN S CEFAZOLIN S R AMOX/CLAV AUGM S R AMP/SULB-UNASYN S R CIPROFLOXACIN S GENTAMICIN S TETRACYCLINE S TRIMETH/SULFA S S AZITHROMYCIN S CLINDAMYCIN S ERYTHROMYCIN S OXACILLIN R VANCOMYCIN S METH RESIST STAPH AUREUS: MICROSCAN GRAM POSITIVE PANEL ATTENTIONATTENTIONPLACE PATIENT ON CONTACT PRECAUTIONS 1. PROTEUS MIRABILIS RX AB ------ -- AMPICILLIN S CEFAZOLIN S AMOXICILLIN/CLAVULINIC ACID S AMPICILLIN/SULBACTAM S CIPROFLOXACIN S GENTAMICIN S TRIMETHOPRIM/SULFAMETHOXAZOLE S 2. METH RESIST STAPH AUREUS RX ABN ------ --- 2. METH RESIST STAPH AUREUS RX AB ------ -- CEFAZOLIN R AMOXICILLIN/CLAVULINIC ACID R AMPICILLIN/SULBACTAM R TETRACYCLINE S TRIMETHOPRIM/SULFAMETHOXAZOLE S AZITHROMYCIN S CLINDAMYCIN S ERYTHROMYCIN S OXACILLIN R VANCOMYCIN S ATTENTIONATTENTIONPLACE PATIENT ON CONTACT PRECAUTIONS Recent Imaging Studies: SERVICE DATE: 04/18/18 EXAM TYPE: RAD - XRY-CHEST XRAY, TWO VIEWS EXAMINATION: XR CHEST CLINICAL INFORMATION: Altered mental status. Hypoglycemia. COMPARISON: Chest radiograph 09/01/2014. TECHNIQUE: 2 views of the chest were obtained. The lateral view was repeated. FINDINGS: The lungs are grossly clear without consolidation, edema, effusion, or pneumothorax. Mild low lung volumes. Normal heart size. Multilevel degenerative changes in the thoracic spine. Degenerative changes at the shoulder joints. IMPRESSION: No active disease in the chest. Assessment/Plan ID Impression: 82 y/o patient with history of diabetes mellitus type 2 poor controlled, hyperlipidemia and and hypertension, prostate cancer, status post radiation with secondary proctitis, seizure disorder and peripheral vascular disease, status post amputation of the right great toe and partial amputations of the right fourth and left second toes, admitted afer being found disheveled and incontinent at home, with a foul-smelling, necrotic left third toe. Stable, though with recent fevers postop, status post open partial third ray resection of the left foot on 04/18 for gangrene/osteomyelitis. He is on Unasyn but, with positive blood cultures positive for MRSA, his antibiotics adjusted, particularly to cover MRSA. GNR identified as Proteus (pansensitive). He is scheduled for a return to the OR next week for further debridement/possible TMA. His vascular status is clearly compromised and he would benefit from vascular surgery evaluation. Suggestion: 1. Cont D #3 Vancomycin 1 g IV every 24 hours; d/c Flagyl and Ceftazidime; start Ceftriaxone 2 gm daily instead once a day. 2. Trend CBC, BMP, vanco trogh 30 min before the 4th dose due 04/22; goal trough 15-20. 3.Await return to the OR next week for possible TMA per Podiatry
[2018-04-21 22:24] VITALS: BP 128/62
[2018-04-22 06:41] VITALS: BP 130/64
[2018-04-22 08:40] LABS: ABSOLUTE BASOPHIL COUNT 0 /CUMM (0.0-0.2); ABSOLUTE EOSINOPHIL COUNT 0.2 /CUMM (0.0-0.7); ABSOLUTE GRANULOCYTE CT 7.6 /CUMM (1.4-6.5); ABSOLUTE MONOCYTE COUNT 0.7 /CUMM (0.10-0.60); BASOPHIL % 0.3 % (0.0-2.0); EOSINOPHIL % 1.7 % (0-5); GRANULOCYTE % 80.7 % (42.2-75.2); HEMATOCRIT 26.2 % (42-52); MEAN CORPUSCULAR HGB 28.1 PG (27.0-31.0); MEAN CORPUSCULAR VOLUME 82.8 FL (80.0-94.0); MEAN PLATELET VOLUME 7.7 FL (7.4-10.4); PLATELET COUNT 437 /CUMM (130-400); RBC DISTRIBUTION WIDTH 13.3 % (11.5-14.5); RED BLOOD CELL CT 3.16 /CUMM (4.70-6.10); WHITE BLOOD CELL COUNT 9.4 /CUMM (4.8-10.8)
--- NOTE | 2018-04-22 12:22 | PN- Diabetes ---
Assessment/Plan Diabetes Assessment: This 82 year old male has a long-standing history of type 2 diabetes. He was found to have gangrene and osteomyelitis involving his left foot. He underwent the procedures. Levemir was increased to 8 units twice a day, he is Novolog coverage before meals and Novolog coverage at bedtime. His FSGs were 154, 172, 140. Plan: continue the current insulin regimen for now; monitor FSGs, will follow. Subjective Subjective: He has no special complaints for now. Objective Last 24 Hrs of Vital Signs/I&O Vital Signs Date Time Temp Pulse Resp B/P B/P Pulse O2 O2 Flow FiO2 Mean Ox Delivery Rate 04/22 0807 80 130/64 04/22 0641 98.8 63 20 130/64 97 Room Air 04/21 2224 99.3 68 20 128/62 94 Room Air 04/21 1512 98.3 66 20 108/58 93 Room Air Intake & Output 04/22 1600 04/22 0800 04/22 0000 Intake Total 240 Output Total Balance 240 Intake, Oral 240 Patient 189 lb Weight Findings Pertinent Lab/Av Results: Laboratory Tests 04/22 04/22 1115 0705 Chemistry Sodium (137 - 145 mmol/L) 137 Potassium (3.5 - 5.1 mmol/L) 4.6 Chloride (98 - 107 mmol/L) 104 Carbon Dioxide (22 - 30 mmol/L) 24 Anion Gap (5 - 16) 10 BUN (9 - 20 mg/dL) 13 Creatinine (0.7 - 1.2 mg/dL) 1.1 Estimated GFR (>60 ml/min) > 60 BUN/Creatinine Ratio (7 - 25 %) 11.8 Magnesium (1.6 - 2.3 mg/dL) 1.9 Hematology CBC w Diff NO MAN DIFF REQ WBC (4.8 - 10.8 /CUMM) 9.4 RBC (4.70 - 6.10 /CUMM) 3.16 L Hgb (14.0 - 18.0 G/DL) 8.9 L Hct (42 - 52 %) 26.2 L MCV (80.0 - 94.0 FL) 82.8 MCH (27.0 - 31.0 PG) 28.1 MCHC (33.0 - 37.0 G/DL) 34.0 RDW (11.5 - 14.5 %) 13.3 Plt Count (130 - 400 /CUMM) 437 H MPV (7.4 - 10.4 FL) 7.7 Gran % (42.2 - 75.2 %) 80.7 H Lymphocytes % (20.5 - 51.1 %) 10.2 L Monocytes % (1.7 - 9.3 %) 7.1 Eosinophils % (0 - 5 %) 1.7 Basophils % (0.0 - 2.0 %) 0.3 Absolute Granulocytes (1.4 - 6.5 /CUMM) 7.6 H Absolute Lymphocytes (1.2 - 3.4 /CUMM) 1.0 L Absolute Monocytes (0.10 - 0.60 /CUMM) 0.7 H Absolute Eosinophils (0.0 - 0.7 /CUMM) 0.2 Absolute Basophils (0.0 - 0.2 /CUMM) 0 Toxicology Vancomycin Trough (10.0 - 20.0 ug/mL) 7.4 L
[2018-04-22 14:07] VITALS: BP 130/68
--- NOTE | 2018-04-22 17:25 | PN- Infect Dx ---
Subjective Subjective: No fever or chills. No new c/o. Review of Systems Comments: 12 points reviewed as noted, otherwise neg. Objective Last 24 Hrs of Vital Signs/I&O Vital Signs Date Time Temp Pulse Resp B/P B/P Pulse O2 O2 Flow FiO2 Mean Ox Delivery Rate 04/22 1407 97.6 66 20 130/68 96 Room Air 04/22 0807 80 130/64 04/22 0641 98.8 63 20 130/64 97 Room Air 04/21 2224 99.3 68 20 128/62 94 Room Air Intake & Output 04/22 1600 04/22 0800 04/22 0000 Intake Total 700 240 Output Total Balance 700 240 Intake, IV 300 Intake, Oral 400 240 Patient 189 lb Weight Physical Exam Other Physical Findings: He appears comfortable in no acute distress HEENT AT/NC Neck No JVD Lungs are clear Heart regular rhythm without murmur Abd Soft, NT Extremities left foot dressing intact Skin warm and dry Results Last 24 Hours of Lab Results: Laboratory Tests 04/22 04/22 1115 0705 Chemistry Sodium (137 - 145 mmol/L) 137 Potassium (3.5 - 5.1 mmol/L) 4.6 Chloride (98 - 107 mmol/L) 104 Carbon Dioxide (22 - 30 mmol/L) 24 Anion Gap (5 - 16) 10 BUN (9 - 20 mg/dL) 13 Creatinine (0.7 - 1.2 mg/dL) 1.1 Estimated GFR (>60 ml/min) > 60 BUN/Creatinine Ratio (7 - 25 %) 11.8 Magnesium (1.6 - 2.3 mg/dL) 1.9 Hematology CBC w Diff NO MAN DIFF REQ WBC (4.8 - 10.8 /CUMM) 9.4 RBC (4.70 - 6.10 /CUMM) 3.16 L Hgb (14.0 - 18.0 G/DL) 8.9 L Hct (42 - 52 %) 26.2 L MCV (80.0 - 94.0 FL) 82.8 MCH (27.0 - 31.0 PG) 28.1 MCHC (33.0 - 37.0 G/DL) 34.0 RDW (11.5 - 14.5 %) 13.3 Plt Count (130 - 400 /CUMM) 437 H MPV (7.4 - 10.4 FL) 7.7 Gran % (42.2 - 75.2 %) 80.7 H Lymphocytes % (20.5 - 51.1 %) 10.2 L Monocytes % (1.7 - 9.3 %) 7.1 Eosinophils % (0 - 5 %) 1.7 Basophils % (0.0 - 2.0 %) 0.3 Absolute Granulocytes (1.4 - 6.5 /CUMM) 7.6 H Absolute Lymphocytes (1.2 - 3.4 /CUMM) 1.0 L Absolute Monocytes (0.10 - 0.60 /CUMM) 0.7 H Absolute Eosinophils (0.0 - 0.7 /CUMM) 0.2 Absolute Basophils (0.0 - 0.2 /CUMM) 0 Toxicology Vancomycin Trough (10.0 - 20.0 ug/mL) 7.4 L Last 24 Hours of Av Results: SPEC #: [id number] HAYLEE: 04/18/18 STATUS: COMP RECD: 04/18/[address]: Gerardo Antoine DPM SOURCE: [facility] ENTR: 04/18/[address]: Isaias MONTE,Lexie SPDESC: TOE 3 L FT Raysa MONTE,Karthikeyan Denton ORDERED: XTRMOR COMMENT: SMALL PIECE OF BONE IN STERILE CONTAINER (LEFT THIRD TOE) ADDITIONAL INFORMATION: BONE Procedure Result > GRAM STAIN Final 04/19/18-1216 GRAM POSITIVE COCCI PACKED GRAM NEGATIVE RODS MANY OTHER AFTER OVERNIGHT INCUBATION IN THIO > EXTREMITIES OR SPECIMEN Final 04/22/18-0829 AFTER OVERNIGHT INCUBATION IN THIO 1. PROTEUS MIRABILIS 2. METH RESIST STAPH AUREUS ISOLATED Called to/Readback by ABIGAIL by [email or web address] 04/21/18 1135 PRELIMINARY Called to/Readback by ABIGAIL by [facility] 04/20/18 0900 P.mirabili MRSA RX AB RX AB ------ -- ------ -- AMPICILLIN S CEFAZOLIN S R AMOX/CLAV AUGM S R AMP/SULB-UNASYN S R CIPROFLOXACIN S GENTAMICIN S TETRACYCLINE S TRIMETH/SULFA S S AZITHROMYCIN S CLINDAMYCIN S ERYTHROMYCIN S OXACILLIN R VANCOMYCIN S METH RESIST STAPH AUREUS: MICROSCAN GRAM POSITIVE PANEL ATTENTIONATTENTIONPLACE PATIENT ON CONTACT PRECAUTIONS 1. PROTEUS MIRABILIS RX AB ------ -- AMPICILLIN S CEFAZOLIN S AMOXICILLIN/CLAVULINIC ACID S AMPICILLIN/SULBACTAM S CIPROFLOXACIN S GENTAMICIN S TRIMETHOPRIM/SULFAMETHOXAZOLE S 2. METH RESIST STAPH AUREUS RX ABN ------ --- 2. METH RESIST STAPH AUREUS RX AB ------ -- CEFAZOLIN R AMOXICILLIN/CLAVULINIC ACID R AMPICILLIN/SULBACTAM R TETRACYCLINE S TRIMETHOPRIM/SULFAMETHOXAZOLE S AZITHROMYCIN S CLINDAMYCIN S ERYTHROMYCIN S OXACILLIN R VANCOMYCIN S ATTENTIONATTENTIONPLACE PATIENT ON CONTACT PRECAUTIONS Recent Imaging Studies: reviewed Assessment/Plan ID Impression: 82 y/o patient with history of diabetes mellitus type 2 poor controlled, hyperlipidemia and and hypertension, prostate cancer, status post radiation with secondary proctitis, seizure disorder and peripheral vascular disease, status post amputation of the right great toe and partial amputations of the right fourth and left second toes, admitted afer being found disheveled and incontinent at home, with a foul-smelling, necrotic left third toe. Stable, though with recent fevers postop, status post open partial third ray resection of the left foot on 04/18 for gangrene/osteomyelitis. He is on Unasyn but, with positive blood cultures positive for MRSA, his antibiotics adjusted, particularly to cover MRSA. GNR identified as Proteus (pansensitive). He is scheduled for a return to the OR next week for further debridement/possible TMA. Suggestion: 1. Cont D #4 Vancomycin; redose per pharmacy as level subtherapeutic at 7.4; goal trough 15-20. Cont Ceftriaxone 2 gm daily D #2. 2. Trend CBC, BMP, ESR weekly. 3. Awaits return to the OR next week for possible TMA per Podiatry
--- NOTE | 2018-04-22 18:36 | PN- Att Addend ---
Attending Addendum Attending Brief Note 82M PMH diabetes, neuropathy, hypertension peripheral vascular disease dementia previous history of osteomyelitis s/p amputations admitted with left third toe osteomyelitis/gangrene s/p debridement on 04/18 by podiatry, now growing gram positive cocci in blood cultures, transferred to telemetry post-operatively for increased PVC's on monitor. Patient has no complaints today and feels well. He is a bit tangential in his speech. He denies chest pain, SOB, or palpitations. Lactate has normalized from 3.8, WBC improving, glucose levels remain uncontrolled. Blood cultures growing mRSA 1. Sepsis secondary to mRSA bacteremia 2. Left third toe osteomyelitis and gas gangrene 3. Multiple PVCs 4. PAD Plan - Continue on telemetry - Continue Vancomycin, Ceftazidime, Flagyl - Follow blood and wound cultures - Follow ID, endocrine, podiatry recommendations - Obtain vascular consult - Monitor renal function - Discontinue IV fluids - Continue home medications - DVT PPx
[2018-04-22 22:44] VITALS: BP 120/54
[2018-04-23 06:45] VITALS: BP 130/70
--- NOTE | 2018-04-23 07:28 | PN- Housestaff ---
Franky MONTE,Baltazar 04/23/18 0728: Subjective Follow-up For: MRSA Bacteremia Left toe gangrene s/p amputation PACs/PVCs Hyperglycemia Tele-Events Since Last Visit: Wandering Atrial Pacemaker, 59-84 PVCs/PACs Subjective: Patient was seen and examined today. Patient denied any complaints of chest pain, shortness of breath, cough, fever, chills, n/v/c/d, abdominal pain, dysuria/hematuria, or foot pain. Patient reports that he was had a good appetite. Reports last bowel movement was yesterday. Patient's [id number], Brandi Santos was at bedside and was updated. States patient looks much better than he did 3-4 days prior. FS, 159, 84, 128, 253 Review of Systems Constitutional: Reports: see HPI. Objective Last 24 Hrs of Vital Signs/I&O Vital Signs Date Time Temp Pulse Resp B/P B/P Pulse O2 O2 Flow FiO2 Mean Ox Delivery Rate 04/23 0645 98.8 68 18 130/70 96 Room Air 04/22 2244 99.4 84 18 120/54 96 Room Air 04/22 1407 97.6 66 20 130/68 96 Room Air Intake & Output 04/23 1600 04/23 0800 04/23 0000 Intake Total 400 Output Total Balance 400 Intake, Oral 400 Patient 186 lb Weight Weight Bed scale Measurement Method Physical Exam General Appearance: Alert, Oriented X3, Cooperative, No Acute Distress Skin Temp/Moisture Exam: Warm/Dry Sepsis Skin Exam (color): Normal for Ethnicity HEENT: Atraumatic, Mucous Membr. moist/pink Cardiovascular: Regular Rate, Normal S1, Normal S2 Lungs: Clear to Auscultation, Normal Air Movement Abdomen: Normal Bowel Sounds, Soft, No Tenderness Neurological: Normal Speech, Sensation Intact, Cranial Nerves 3-12 NL Extremities: No Clubbing, No Cyanosis, No Edema, left foot covered in surgical bandage, right toe s/p previous 1st and 4th toe amputations, poorly palpable pulses Last 24 Hrs of Lab/Av Results Last 24 Hrs of Labs/Mics: Laboratory Tests 04/23/18 0609: CBC w Diff NO MAN DIFF REQ, RBC 3.23 L, MCV 82.8, MCH 28.2, MCHC 34.1, RDW 13.6 , MPV 7.3 L, Gran % 78.9 H, Lymphocytes % 10.9 L, Monocytes % 7.6, Eosinophils % 2.2, Basophils % 0.4, Absolute Granulocytes 6.9 H, Absolute Lymphocytes 0.9 L, Absolute Monocytes 0.7 H, Absolute Eosinophils 0.2, Absolute Basophils 0 04/22/18 1115: Vancomycin Trough 7.4 L Assessment/Plan Assessment: 82-year-old gentleman history of noncompliance insulin-dependent diabetes, neuropathy, hypertension, peripheral vascular disease, dementia, previous history of osteomyelitis s/p amputations Patient was initially admitted to the general medicine floor for left third toe osteomyelitis/gangrene s/p debridement on 04/18 by podiatry, transferred to telemetry post-operatively for increased PVC's on monitor. Patient on telemetry is being managed for the followin. Gram positive sepsis- Resolved Now growing MRSA in blood cultures, covered with Vancomycin. OR cultures growing MRSA and proteus mirabilis (pansensitive). Currently on IV Ceftraixone 2. Left toe gangrene s/p toe amputation and revision today 04/23. 3. PACs/PVCs- patient has occasional palpitations, PVCs on telemetry monitoring, cardiology consulted, currently on statin and Diltiazem 4. Hyperglycemia, Diabetic - FSG in the 100s now. Endocrinology on board, insulin adjusted. 5. LEYDA - resolved 6. Chronic Anemia 7. PAD - vascular consulted, will obtain CTA with runoff of lower extremities Plan: Continue tele monitoring Cardiology consulted; appreciate recommendations Monitor vitals qshift Accuchecks TIDAC/qHS Continue IV vancomycin and ceftriaxone Follow-up repeat blood cultures Levemir 4 units twice daily NovoLog 3 times a day before meals and at bedtime sliding scale Infectious disease consulted. Appreciate recommendations Podiatry is on board. Vascular surgery consulted. Appreciate Recommendations CT Abd/Pelvis with bilateral runnoff PT eval Continue rest of home medication DVT prophylaxis: Heparin SQ Diet: Diabetic diet Code: Full code Problem List: 1. Gram positive sepsis 2. Osteomyelitis Pain Ratin Pain Location: foot Pain Goal: Remain pain free Pain Plan: per pain pathway Tomorrow's Labs & Rationales: cbc bep mg vanc trough Chen Hernandez MD 04/23/18 1150: Attending MD Review Statement Attending Statement Attending MD Statement: examined this patient, discuss w/resident/PA/PUBLIC RELATIONS SPECIALIST, agreed w/resident/PA/PUBLIC RELATIONS SPECIALIST, reviewed EMR data (avail) Attending Assessment/Plan: 82M PMH diabetes, neuropathy, hypertension peripheral vascular disease dementia previous history of osteomyelitis s/p amputations admitted with left third toe osteomyelitis/gangrene s/p debridement on 04/18 by podiatry, now growing gram positive cocci in blood cultures, transferred to telemetry post-operatively for increased PVC's on monitor. Patient has no complaints today and feels well. He is a bit tangential in his speech. He denies chest pain, SOB, or palpitations. Lactate has normalized from 3.8, WBC improving, glucose levels remain uncontrolled. Blood cultures growing mRSA 1. Sepsis secondary to mRSA bacteremia 2. Left third toe osteomyelitis and gas gangrene 3. Multiple PVCs 4. PAD Plan - Continue on telemetry - Continue Vancomycin, Ceftazidime, Flagyl - Follow blood and wound cultures - Follow ID, endocrine, podiatry recommendations - Obtain vascular consult - Monitor renal function - To OR today - Continue home medications - DVT PPx
--- NOTE | 2018-04-23 07:40 | PN- Diabetes ---
Assessment/Plan Diabetes Assessment: The patient states he feels okay. Apparently he has been made n.p.o. this morning for further foot surgery this afternoon. His fingerstick blood sugar this morning is 117. Plan: Suggest give 4 units of Levemir this morning instead of his usual dose of 8 units. In addition begin IV fluids with D5 half-normal saline at 75 cc/h. While he is n.p.o. we should place him on sliding scale NovoLog every 4 hours for sugars above 150. Sliding scale NovoLog should be less than 150 give no insulin, 151-200 give 2 units NovoLog, 201-250 give 3 units NovoLog, 251-300 give 4 units NovoLog, 301-350 give 5 units NovoLog, 351-400 give 6 units NovoLog. Once the patient is eating we should resume his usual dose of Levemir which is 8 units twice a day and also his usual pre-meal sliding scale as well as his separate bedtime sliding scale NovoLog. Subjective Subjective: Feels okay Review of Systems Constitutional: Denies: chills, fever. Cardiovascular: Denies: chest pain. Respiratory: Denies: cough, short of breath. Gastrointestinal: Denies: abdominal pain. Genitourinary: Denies: dysuria. Objective Last 24 Hrs of Vital Signs/I&O Vital Signs Date Time Temp Pulse Resp B/P B/P Pulse O2 O2 Flow FiO2 Mean Ox Delivery Rate 04/23 0645 98.8 68 18 130/70 96 Room Air 04/22 2244 99.4 84 18 120/54 96 Room Air 04/22 1407 97.6 66 20 130/68 96 Room Air 04/22 0807 80 130/64 Intake & Output 04/23 0804/23 0000 04/22 1600 Intake Total 400 700 Output Total Balance 400 700 Intake, IV 300 Intake, Oral 400 400 Patient 186 lb Weight Weight Bed scale Measurement Method Vital Signs Date Time Temp Pulse Resp B/P B/P Pulse O2 O2 Flow FiO2 Mean Ox Delivery Rate 04/23 0645 98.8 68 18 130/70 96 Room Air 04/22 2244 99.4 84 18 120/54 96 Room Air 04/22 1407 97.6 66 20 130/68 96 Room Air 04/22 0807 80 130/64 Intake & Output 04/23 0804/23 0000 04/22 1600 Intake Total 400 700 Output Total Balance 400 700 Intake, IV 300 Intake, Oral 400 400 Patient 186 lb Weight Weight Bed scale Measurement Method Physical Exam General Appearance: alert, awake, comfortable Head: normal appearance Neck: normal inspection Respiratory: normal breath sounds Cardiovascular: irregularly irregular Extremities: left foot bsandaged Current Medications: Current Medications Sig/Aida Start time Last Medication Dose Route Stop Time Status Admin Acetaminophen 650 MG Q6P PRN 04/18 2045 AC PO Acetaminophen 1,000 MG Q6P PRN 04/18 2045 AC 04/19 IV 0556 Atorvastatin Calcium 40 MG 1700 04/18 170 AC 04/22 PO 171 Ceftriaxone Sodium 2,000 MG 04/23 AC IV Ceftriaxone Sodium 2,000 MG DAILY 04/21 2200 DC 04/22 IV 221 Diltiazem HCl 240 MG DAILY 04/19 09 AC 04/22 PO 0807 Escitalopram Oxalate 10 MG DAILY 04/19 09 AC 04/22 PO 0808 Heparin Sodium 5,000 UNIT Q8 04/18 1544 AC 04/23 (Porcine) SC 0557 Insulin Aspart 0 AT BEDTIME 04/19 2100 AC 04/20 SC 2139 Insulin Aspart 0 TIDAC 04/19 1200 AC 04/22 SC 1712 Insulin Detemir 8 UNITS BID 04/21 2100 AC 04/22 SC 221 Melatonin 5 MG AT BEDTIME 04/18 2245 AC 04/22 PO 221 Oxycodone/ 2 TAB Q6P PRN 04/18 2045 AC 04/18 Acetaminophen PO 203 Phenytoin 200 MG BID 04/18 2100 AC 04/22 PO 221 Tamsulosin HCl 0.4 MG DAILY 04/19 09 AC 04/22 PO 0807 Vancomycin HCl 1,250 MG BID 04/22 2100 AC 04/22 Sodium Chloride 250 ML IV 2213 Vancomycin HCl 1,000 MG 1400 04/19 1400 DC 04/22 Sodium Chloride 250 ML IV 1234 Findings Pertinent Lab/Av Results: Laboratory Tests 04/23 04/22 04/22 0609 1115 0705 Chemistry Sodium (137 - 145 mmol/L) 137 Potassium (3.5 - 5.1 mmol/L) 4.6 Chloride (98 - 107 mmol/L) 104 Carbon Dioxide (22 - 30 mmol/L) 24 Anion Gap (5 - 16) 10 BUN (9 - 20 mg/dL) 13 Creatinine (0.7 - 1.2 mg/dL) 1.1 Estimated GFR (>60 ml/min) > 60 BUN/Creatinine Ratio (7 - 25 %) 11.8 Magnesium (1.6 - 2.3 mg/dL) 1.9 Hematology CBC w Diff Pending NO MAN DIFF REQ WBC (4.8 - 10.8 /CUMM) Pending 9.4 RBC (4.70 - 6.10 /CUMM) Pending 3.16 L Hgb (14.0 - 18.0 G/DL) Pending 8.9 L Hct (42 - 52 %) Pending 26.2 L MCV (80.0 - 94.0 FL) Pending 82.8 MCH (27.0 - 31.0 PG) Pending 28.1 MCHC (33.0 - 37.0 G/DL) Pending 34.0 RDW (11.5 - 14.5 %) Pending 13.3 Plt Count (130 - 400 /CUMM) Pending 437 H MPV (7.4 - 10.4 FL) Pending 7.7 Gran % (42.2 - 75.2 %) 80.7 H Lymphocytes % (20.5 - 51.1 %) 10.2 L Monocytes % (1.7 - 9.3 %) 7.1 Eosinophils % (0 - 5 %) 1.7 Basophils % (0.0 - 2.0 %) 0.3 Absolute Granulocytes (1.4 - 6.5 /CUMM) 7.6 H Absolute Lymphocytes (1.2 - 3.4 /CUMM) 1.0 L Absolute Monocytes (0.10 - 0.60 /CUMM) 0.7 H Absolute Eosinophils (0.0 - 0.7 /CUMM) 0.2 Absolute Basophils (0.0 - 0.2 /CUMM) 0 Toxicology Vancomycin Trough (10.0 - 20.0 ug/mL) 7.4 L
[2018-04-23 07:50] LABS: ABSOLUTE BASOPHIL COUNT 0 /CUMM (0.0-0.2); ABSOLUTE EOSINOPHIL COUNT 0.2 /CUMM (0.0-0.7); ABSOLUTE GRANULOCYTE CT 6.9 /CUMM (1.4-6.5); ABSOLUTE LYMPH COUNT 0.9 /CUMM (1.2-3.4); ABSOLUTE MONOCYTE COUNT 0.7 /CUMM (0.10-0.60); BASOPHIL % 0.4 % (0.0-2.0); EOSINOPHIL % 2.2 % (0-5); GRANULOCYTE % 78.9 % (42.2-75.2); HEMATOCRIT 26.8 % (42-52); MEAN CORPUSCULAR HGB 28.2 PG (27.0-31.0); MEAN CORPUSCULAR HGB CONC 34.1 G/DL (33.0-37.0); MEAN CORPUSCULAR VOLUME 82.8 FL (80.0-94.0); MEAN PLATELET VOLUME 7.3 FL (7.4-10.4); PLATELET COUNT 424 /CUMM (130-400); RBC DISTRIBUTION WIDTH 13.6 % (11.5-14.5); RED BLOOD CELL CT 3.23 /CUMM (4.70-6.10); WHITE BLOOD CELL COUNT 8.7 /CUMM (4.8-10.8)
--- NOTE | 2018-04-23 11:03 | Operative Report ---
Operative/Inv Procedure Report Surgery Date: 04/23/18 Name of Procedure: 1 open incision and drainage deep to the deep fascia with exposure of the extensor and flexor tendon and tendon sheath multiple sites left foot 2 revisional, partial third ray resection left foot 3 intraoperative administration of negative pressure wound therapy 4 intraoperative administration of ankle block anesthesia 5 excisional debridement Pre-Operative Diagnosis: 1 open necrotic wound left foot 2 osteomyelitis left foot Post-Operative Diagnosis: The same Estimated Blood Loss: less than 50ml Surgeon/Seed Packer: KARY RUVALCABA DPM Anesthesia: moderate sedation, block Operative/Procedure Note Note: After obtaining informed consent the patient brought to the OR placed on the operating table in the supine position. The patient was securely fastened to the operating table utilizing safety belt. After administration of IV sedation, 10 mL of 0.5% Marcaine plain was infiltrated about the patient's left ankle. The left foot and ankle within scrubbed, prepped and draped in usual aseptic manner. Attention directed distal left foot, where a large full-thickness necrotic was identified. The lesion was noted to measure 8 cm x 3 cm x 3 cm. There is exposed necrotic tendon and bone identified. A 15 blade was utilized to sharply revised skin margins. The dissection was then carried down deep to the deep fascia with exposure of the extensor and flexor tendon and tendon sheath multiple sites, both proximally and distally. All necrotic, nonviable infected tissue sharply evacuated from the wound bed. The periosteum overlying the distal stump of the exposed metatarsal was dissected proximally and a sagittal bone saw was utilized to resect the distal expose 2 cm. Specimen sent for pathologic inspection. The wound was then irrigated with 3 L of normal sterile saline infused with 50,000 units of bacitracin. Following this, the foot was redraped and the surgeon's top gloves were exchanged with clean gloves. Any bleeding vessels identified were cauterized or ligated as encountered. Next, negative pressure wound therapy was placed. Followed by the application of Kerlix and an Pete wrap. The patient was noted tolerate both procedure and anesthesia well and the patient was transported from the operating room to recovery with vital signs stable.
--- NOTE | 2018-04-23 12:26 | Cons- Vascular Surgery ---
General Information and HPI Consulting Request Date of Consult: 04/23/18 Requested By: Chen Hernandez MD Reason for Consult: Left foot wound with recent incision and drainage by podiatry Source of Information: patient, old records Exam Limitations: poor historian History of Present Illness: This is an 82-year-old male with multiple medical problems including diabetes, high cholesterol, seizure disorder and recent admission for a necrotic foot wound. This required incision and drainage. Patient does have a remote smoking history. He denies previous claudication. However he is slightly poor historian today due to recent administration of anesthesia. Per the medical reconciliation was admitted over the past several days for a necrotic progressive foot wound. This was treated with antibiotics and drainage. Patient is being evaluated for PAD. He denies rest pain. Allergies/Medications Allergies: Coded Allergies: NO KNOWN ALLERGIES (04/18/18) Home Med List: Diltiazem HCl (Cardizem Cd) 240 MG CAP.ER.24H 1 CAP PO DAILY HEART (Reported) Escitalopram Oxalate (Lexapro) 10 MG TABLET 1 TAB PO DAILY MENTAL HEALTH ( Reported) Insulin Aspart (Novolog) (Unknown Strength) VIAL (Unknown Dose) SC SEE SLIDING SCALE DIABETES (Reported) Insulin Detemir (Levemir Flextouch) 100 UNIT/ML (3 ML) INSULN.PEN 68 UNITS SC DAILY DIABETES (Reported) Lisinopril (Zestril) 20 MG TABLET 1 TAB PO DAILY HEART (Reported) Phenytoin (Dilantin) 100 MG CAPSULE 2 CAP PO BID SEIZURES (Reported) Simvastatin (Simvastatin*) 40 MG TABLET 1 TAB PO QPM CHOLESTEROL (Reported) Tamsulosin HCl (Flomax) 0.4 MG CAP.ER.24H 1 CAP PO DAILY BPH (Reported) Current Medications: Current Medications Sig/Aida Start time Last Medication Dose Route Stop Time Status Admin Acetaminophen 650 MG Q6P PRN 04/18 2045 AC PO Acetaminophen 1,000 MG Q6P PRN 04/18 2045 AC 04/19 IV 0556 Atorvastatin Calcium 40 MG 04/18 170 AC 04/22 PO 1712 Ceftriaxone Sodium 2,000 MG 04/23 AC IV Ceftriaxone Sodium 2,000 MG DAILY 04/21 220 DC 04/22 IV 2214 Dextrose/Sodium 1,000 ML Q13H 04/23 0800 AC 04/23 Chloride IV 0802 Diltiazem HCl 240 MG DAILY 04/19 0900 AC 04/23 PO 0812 Escitalopram Oxalate 10 MG DAILY 04/19 09 AC 04/23 PO 0812 Heparin Sodium 5,000 UNIT Q8 04/18 1544 AC 04/23 (Porcine) SC 0557 Insulin Aspart 0 Q4 04/23 1000 CAN SC Insulin Aspart 0 AT BEDTIME 04/19 2100 DC 04/20 SC 2139 Insulin Aspart 0 TIDAC 04/19 1200 DC 04/22 SC 1712 Insulin Detemir 4 UNITS BID 04/23 0900 AC 04/23 SC 0812 Insulin Detemir 8 UNITS BID 04/21 2100 DC 04/22 SC 2212 Insulin Human Regular 0 Q6 04/23 0806 AC 04/23 SC 0812 Melatonin 5 MG AT BEDTIME 04/18 2245 AC 04/22 PO 2215 Oxycodone/ 2 TAB Q6P PRN 04/18 2045 AC 04/18 Acetaminophen PO 203 Phenytoin 200 MG BID 04/18 2100 AC 04/23 PO 0812 Tamsulosin HCl 0.4 MG DAILY 04/19 09 AC 04/23 PO 0812 Vancomycin HCl 1,250 MG BID 04/22 2100 AC 04/22 Sodium Chloride 250 ML IV 2213 Vancomycin HCl 1,000 MG 1400 04/19 1400 DC 04/22 Sodium Chloride 250 ML IV 1234 Past History Medical History Neurological: NONE EENT: NONE Cardiovascular: hypertension, hyperlipidemia Respiratory: NONE Gastrointestinal: NONE Hepatic: NONE Renal: NONE Musculoskeletal: NONE Psychiatric: NONE Endocrine: diabetes Blood Disorders: NONE Cancer(s): NONE Surgical History Pertinent Surgical History: RT TOE AMPUTATION Partial amputations mof the right 2nd and left 4th toes Psychosocial History Services at Home: None Smoking Status: Unknown If Ever Smoked ETOH Use: denies use Illicit Drug Use: denies illicit drug use Review of Systems Review of Systems: Patient with mild discomfort in the left foot. Exam & Diagnostic Data Vital Signs and I&O Vital Signs Date Time Temp Pulse Resp B/P B/P Pulse O2 O2 Flow FiO2 Mean Ox Delivery Rate 04/23 08 68 130/70 04/23 08 Room Air 04/23 0645 98.8 68 18 130/70 96 Room Air 04/22 2244 99.4 84 18 120/54 96 Room Air 04/22 1407 97.6 66 20 130/68 96 Room Air Intake & Output 04/23 0800 04/23 0000 04/22 1600 04/22 0800 04/22 0000 Intake Total 400 700 240 Output Total Balance 400 700 240 Intake, IV 300 Intake, Oral 400 400 240 Patient 186 lb 189 lb Weight Weight Bed scale Measurement Method Physical Exam: Bilateral lower extremity exam reveals both lower extremity are perfused. There is no acute ischemia. Has palpable femoral pulses. He has a dressing on the left foot. He has no palpable pulses on the right foot. Last 24 Hours of Labs: Laboratory Tests 04/23 609 Hematology CBC w Diff NO MAN DIFF REQ WBC (4.8 - 10.8 /CUMM) 8.7 RBC (4.70 - 6.10 /CUMM) 3.23 L Hgb (14.0 - 18.0 G/DL) 9.1 L Hct (42 - 52 %) 26.8 L MCV (80.0 - 94.0 FL) 82.8 MCH (27.0 - 31.0 PG) 28.2 MCHC (33.0 - 37.0 G/DL) 34.1 RDW (11.5 - 14.5 %) 13.6 Plt Count (130 - 400 /CUMM) 424 H MPV (7.4 - 10.4 FL) 7.3 L Gran % (42.2 - 75.2 %) 78.9 H Lymphocytes % (20.5 - 51.1 %) 10.9 L Monocytes % (1.7 - 9.3 %) 7.6 Eosinophils % (0 - 5 %) 2.2 Basophils % (0.0 - 2.0 %) 0.4 Absolute Granulocytes (1.4 - 6.5 /CUMM) 6.9 H Absolute Lymphocytes (1.2 - 3.4 /CUMM) 0.9 L Absolute Monocytes (0.10 - 0.60 /CUMM) 0.7 H Absolute Eosinophils (0.0 - 0.7 /CUMM) 0.2 Absolute Basophils (0.0 - 0.2 /CUMM) 0 Assessment/Plan Assessment/Plan 82-year-old male status post incision and drainage for a diabetic necrotic foot wound. 1.) Would recommend CTA abdomen and pelvis with bilateral lower extremity runoff. 2.) Would continue with podiatric foot care 3.) Continue IV antibiotic administration and medical therapy as per primary team 4.) Will follow with you Copies To: Elina GARCIA,Steven Mckeon MD,Patrick Delacruz Consult Acknowledgment - Thank you for your consult request. Attending MD Review Statement Attending Statement Attending MD Statement: examined this patient, discuss w/resident/PA/PHOTO MACHINE OPERATOR, reviewed EMR data (avail), discussed w/nursing
[2018-04-23 12:54] VITALS: BP 124/72
--- NOTE | 2018-04-23 14:13 | Discharge Summary ---
Visit Information Visit Dates Admission Date: 04/18/18 Discharge Date: 04/29/2018 Hospital Course Course Attending Physician: shruthi Owen Primary Care Physician: Raysa MONTE,Karthikeyan Denton Hospital Course: 82-year-old gentleman with past medical history of hypertension, diabetes - noncompliant with medications, complicated by diabetic neuropathy and peripheral vascular disease, history of prostate cancer status post radiation, history of seizure disorder, history of amputation in 2013, history of MRSA cellulitis 2015 was admitted to [facility] on 04/18/18. He was found by his granddaughter to be disheveled and incontinent at home, with a foul-smelling, necrotic left third toe. Laboratory data revealed a white blood cell count of 17,000, glucose 564, BUN/ creatinine 32 and 1.7, sodium 126, with normal liver enzymes. Urinalysis rare RBC/rare WBCs. X-ray of the left foot revealed osteomyelitis of the middle and distal phalanges of the third toe with a few foci of gas within the surrounding soft tissues. Diabetic foot ulcer with ulceration status post left transmetatarsal amputation ulceration status post left transmetatarsal amputation He was started Unasyn in the ER and admitted to the floor. Blood cultures were positive for gram-positive cocci in clusters and Unasyn was discontinued and was started on Vancomycin 1 g IV every 24 hours, Flagyl 500 mg IV every 8 hours and Ceftazidime 1 g IV every 12 hours to cover MRSA and GNR including anaerrobes. He underwent open partial third ray resection of the left foot on 04/18 for gangrene /osteomyelitis with wound vac placement. MRSA/Proteus were isolated from his OR cultures and MRSA alone isolated from the blood cultures. PICC line was placed on 04/24/18. He returned to the OR for transmetatarsal amputation left foot with closure of open surgical wound with local random advancement flap left foot and Achilles tendon lengthening left on 04/26/18.After evaluation by Vascular surgery a CTA of the abdomen and pelvis with bilateral lower extremity runoff revealed mild peripheral arterial disease. We discharged the patient on PICC line, ceftriaxone and vancomycin (04/22/2018 -05/24/2018). Advised for Weekly CBC, ESR, BUN/Creatinine and Vancomycin trough level while on IV vancomycin and IV ceftriaxone. Advised to follow-up primary care provider, podiatry within a week of discharge. Type 2 diabetes Intially found to have accuchecks of 564 but without evidence of ketoacidosis. Endocrine was consulted and followed his course. His accuchecks remained well controlled during his stay. Advised to follow-up with pulvi mixer operator for further evaluation and management of diabetes. Peripheral vascular disease -mild peripheral arterial disease We obtained consult from , who advised for CTA runoff, which was nondiagnostic due to heavy calcification therefore diagnostic angiography was done. Patient underwent angiogram on 04/29/2018.He tolerated the procedure well. There was no significant vascular disease. Allergies: Coded Allergies: NO KNOWN ALLERGIES (04/18/18) Disposition Summary Disposition Principal Diagnosis: Diabetic foot ulcer with ulceration, Gangrene of the left third toe with secondary cellulitis of the left foot s/p open, partial third ray resection left foot,open incision,excisional debridement and drainage deep to the deep fascia with exposure of the extensor and flexor tendon and tendon sheath multiple sites (04/18;04/23;04/26) Additional Diagnosis: Type 2 Diabetes mellitus diabetic neuropathy peripheral vascular disease MRSA cellulitis Discharge Disposition: SNF Discharge Instructions General Discharge Information Code Status: Full Code Patient's Diet: diabetic diet Patient's Activity: NON WEIGHT BEARING FOR 2 WEEKS. Follow-Up Instructions/Appts: Advised to follow up with primary care doctor within 2 weeks of discharge Advised to follow up with Dr. Antoine upon discharge He may need weekly CBC, ESR, BUN/Creatinine and Vancomycin trough level while on IV vancomycin and IV ceftriaxone. Advised to follow-up with infectious disease, for change in the dose of vancomycin, according to vancomycin trough level. Medications at Discharge Discharge Medications: Stop taking the following medications: Insulin Detemir (Levemir Flextouch) 100 UNIT/ML (3 ML) INSULN.PEN Inject into fatty tissue DAILY Continue taking these medications: Simvastatin (Simvastatin*) 40 MG TABLET 1 Tablet ORAL Every night Lisinopril (Zestril) 20 MG TABLET 1 Tablet ORAL DAILY Escitalopram Oxalate (Lexapro) 10 MG TABLET 1 Tablet ORAL DAILY Diltiazem HCl (Cardizem Cd) 240 MG CAP.ER.24H 1 Capsule ORAL DAILY Insulin Aspart (Novolog) (Unknown Strength) VIAL Unknown Dose Inject into fatty tissue SEE SLIDING SCALE Phenytoin (Dilantin) 100 MG CAPSULE 2 Capsule ORAL TWICE DAILY Tamsulosin HCl (Flomax) 0.4 MG CAP.ER.24H 1 Capsule ORAL DAILY Start taking the following new medications: Ceftriaxone Sodium (Ceftriaxone) 2 GRAM VIAL 2,000 Milligram INTRAVEN 2200 Qty = 28 No Refills Copies To: Keanu MONTE,Ranjeet lA; Adriano MONTE,Martin Wolf; Mike MONTE,Patrick Delacruz Attending MD Review Statement Documenting Attending: Isaias MONTE,Lexie
--- NOTE | 2018-04-23 14:18 | PN- Infect Dx ---
Subjective Subjective: Afebrile without complaints Objective Last 24 Hrs of Vital Signs/I&O Vital Signs Date Time Temp Pulse Resp B/P B/P Pulse O2 O2 Flow FiO2 Mean Ox Delivery Rate 04/23 1254 98.1 68 16 124/72 97 Room Air 04/23 0812 68 130/70 04/23 0800 Room Air 04/23 0645 98.8 68 18 130/70 96 Room Air 04/22 2244 99.4 84 18 120/54 96 Room Air Intake & Output 04/23 1600 04/23 0800 04/23 0000 Intake Total 400 Output Total Balance 400 Intake, Oral 400 Patient 186 lb Weight Weight Bed scale Measurement Method Physical Exam Other Physical Findings: He appears comfortable in no acute distress Lungs are clear Heart regular rhythm with no murmur Extremities left foot dressing intact, with wound VAC in place Results Last 24 Hours of Lab Results: Laboratory Tests 04/23 609 Hematology CBC w Diff NO MAN DIFF REQ WBC (4.8 - 10.8 /CUMM) 8.7 RBC (4.70 - 6.10 /CUMM) 3.23 L Hgb (14.0 - 18.0 G/DL) 9.1 L Hct (42 - 52 %) 26.8 L MCV (80.0 - 94.0 FL) 82.8 MCH (27.0 - 31.0 PG) 28.2 MCHC (33.0 - 37.0 G/DL) 34.1 RDW (11.5 - 14.5 %) 13.6 Plt Count (130 - 400 /CUMM) 424 H MPV (7.4 - 10.4 FL) 7.3 L Gran % (42.2 - 75.2 %) 78.9 H Lymphocytes % (20.5 - 51.1 %) 10.9 L Monocytes % (1.7 - 9.3 %) 7.6 Eosinophils % (0 - 5 %) 2.2 Basophils % (0.0 - 2.0 %) 0.4 Absolute Granulocytes (1.4 - 6.5 /CUMM) 6.9 H Absolute Lymphocytes (1.2 - 3.4 /CUMM) 0.9 L Absolute Monocytes (0.10 - 0.60 /CUMM) 0.7 H Absolute Eosinophils (0.0 - 0.7 /CUMM) 0.2 Absolute Basophils (0.0 - 0.2 /CUMM) 0 Last 24 Hours of Av Results: Blood cultures April 18 positive for MRSA, with an AV to Vancomycin of 1 Blood cultures April 19 negative OR culture labeled left third toe bone positive for MRSA and Proteus sensitive to all antibiotics Assessment/Plan ID Impression: Stable, with temperatures and white blood cell count remaining normal, status post revisional partial third ray resection of the left foot, with placement of a wound VAC, earlier today, now 5 days status post open partial third ray resection for gangrene/osteomyelitis. He is now on Vancomycin and Ceftriaxone for MRSA/Proteus isolated from his OR cultures and MRSA alone isolated from the blood cultures. Of note his Vancomycin dose was increased and a repeat level will need to be obtained. Suspect he will require a minimum of 4 weeks of IV antibiotics for residual osteomyelitis but will discuss this further with Podiatry. His vascular status is clearly compromised and he has been evaluated by Vascular surgery, with a CTA of the abdomen and pelvis with bilateral lower extremity runoff recommended. Suggestion: 1. Echocardiogram 2. Further evaluation of his vascular status per vascular surgery 3. Repeat Vancomycin trough level with his next dose 4. Would obtain a postop baseline ESR and x-ray of the left foot 5. Would proceed with placement of a PICC 6. Continue Vancomycin and Ceftriaxone
[2018-04-23 14:40] VITALS: BP 124/68
--- NOTE | 2018-04-23 15:34 | ECHOCARDIOGRAM REPORT ---
LEATHA PENNINGTON Age: 82 : 1935 Gender: M Exam Date: 04/22/2018 19:47 Exam Location: 1 [address] Ht (in): 70 Wt (lb): 187 BSA: 2.06 BP: 130 / 64 Ordering Physician: Yessi Farrell MD Referring Physician: Ranjeet Benedict MD Technologist: Ramiro Jara [facility] Room Number: 171-1 Indications: PVC's NOS Rhythm: PVCs Technical Quality: fair FINDINGS Left Ventricle Normal size left ventricle. Left ventricular wall thickness mildly increased. Normal left ventricular ejection fraction estimated at 60-65%. Right Ventricle Normal right ventricular size and function. Right Atrium Normal right atrial size. Left Atrium Mild to moderate left atrial dilatation. Mitral Valve Mild mitral annular calcification. Trace to mild mitral regurgitation. Aortic Valve Diffuse thickening (sclerosis) of the aortic valve cusps without reduced excursion. Tricuspid Valve Tricuspid valve is normal in structure and function. Mild tricuspid regurgitation. Right ventricular systolic pressure estimated to be at upper limits of normal at 32 mmHg. Pulmonic Valve Pulmonic valve not well visualized, grossly normal. Pericardium No pericardial effusion. Great Vessels Mildly dilated proximal ascending aorta (tube). CONCLUSIONS Normal left ventricular systolic function with mild concentric hypertrophy. Mild to moderate Left atrial enlargement. No significant valvular abnormalities noted. 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 Ranjeet Benedict M.D. (Electronically Signed) Final Date: 23 Apr 2018 15:34 MEASUREMENTS (Male / Female) Normal Values 2D ECHO LV Diastolic Diameter PLAX 5.4 cm 4.2 - 5.9 / 3.9 - 5.3 cm LV Systolic Diameter PLAX 3.3 cm 2.1 - 4.0 cm LV Fractional Shortening PLAX 38.9 % 25 - 46 % LV Ejection Fraction 2D Teich 68.8 % IVS Diastolic Thickness 1.2 cm LVPW Diastolic Thickness 1.0 cm LV Relative Wall Thickness 0.4 RV Internal Dim ED PLAX 3.7 cm 1.9 - 3.8 cm LVOT Diameter 2.6 cm Aortic Root Diameter 3.9 cm LA Systolic Diameter LX 4.8 cm 3.0 - 4.0 / 2.7 - 3.8 cm LA Volume 108.0 cm 18 - 58 / 22 - 52 cm Ascending Aorta Diameter 3.8 cm DOPPLER AV Peak Velocity 170.0 cm/s AV Peak Gradient 11.6 mmHg AV Mean Velocity 118.0 cm/s AV Mean Gradient 6.0 mmHg AV Velocity Time Integral 31.1 cm LVOT Peak Velocity 106.0 cm/s LVOT Peak Gradient 4.5 mmHg LVOT Mean Velocity 70.0 cm/s LVOT Mean Gradient 2.0 mmHg LVOT Velocity Time Integral 21.7 cm LVOT Stroke Volume 115.2 cm AV Area Cont Eq vti 3.7 cm AV Area Cont Eq pk 3.3 cm MV Peak Velocity 109.0 cm/s MV Peak Gradient 4.8 mmHg MV Mean Velocity 61.2 cm/s MV Mean Gradient 2.0 mmHg Mitral E Point Velocity 80.2 cm/s Mitral A Point Velocity 114.0 cm/s Mitral E to A Ratio 0.7 MV PHT Velocity 93.7 cm/s MV Deceleration [place] 238.0 cm/s MV Pressure Half Time 118.1 ms MV Area PHT 1.9 cm MV Deceleration Time 299.0 ms TV Peak Velocity 241.0 cm/s TV Peak E Velocity 58.0 cm/s TV Peak A Velocity 54.9 cm/s TV E to A Ratio 1.1 TR Peak Velocity 261.0 cm/s TR Peak Gradient 27.2 mmHg Right Atrial Pressure 5.0 mmHg Pulmonary Artery Systolic Pressu 32.2 mmHg Right Ventricular Systolic Press 32.2 mmHg PV Peak Velocity 91.0 cm/s PV Peak Gradient 3.3 mmHg PV Mean Velocity 67.4 cm/s PV Mean Gradient 2.0 mmHg PV Velocity Time Integral 15.5 cm LV E' Lateral Velocity 11.3 cm/s Mitral E to LV E' Lateral Ratio 7.1 LV E' Septal Velocity 12.8 cm/s Mitral E to LV E' Septal Ratio 6.3
[2018-04-23 22:00] VITALS: BP 122/64
[2018-04-24 07:10] VITALS: BP 126/66
--- NOTE | 2018-04-24 07:30 | PN- Housestaff ---
Franky MONTE,Baltazar 04/24[birth year]1830: Subjective Follow-up For: MRSA Bacteremia Left toe gangrene s/p amputation PACs/PVCs Hyperglycemia Tele-Events Since Last Visit: NSR: 61-77, PAC/PVC Subjective: Patient was seen and examined today. Patient denies chest pain, palpitations, shortness of breath, abdominal pain, n/v/c/d, hematuria/dysuria. Denies foot pain. Patient reports feeling anxious about his current condition. No acute events overnight. Review of Systems Constitutional: Reports: see HPI. Objective Last 24 Hrs of Vital Signs/I&O Vital Signs Date Time Temp Pulse Resp B/P B/P Pulse O2 O2 Flow FiO2 Mean Ox Delivery Rate 04/24 0800 Room Air 04/24 0759 70 122/70 04/24 0755 70 122/70 04/24 0710 98.8 68 18 126/66 95 Room Air 04/23 2200 99.5 69 16 122/64 94 Room Air 04/23 1440 98.4 66 18 124/68 95 Room Air Intake & Output 04/24 1600 04/24 0800 04/24 0000 Intake Total 375 690 Output Total 100 145 Balance 275 545 Intake, IV 275 330 Intake, Oral 100 360 Output, 20 Drainage Output, Urine 100 125 Patient 199 lb Weight Weight Bed scale Measurement Method Physical Exam General Appearance: Alert, Cooperative, No Acute Distress Skin: No Rashes Skin Temp/Moisture Exam: Warm/Dry Sepsis Skin Exam (color): Normal for Ethnicity HEENT: Atraumatic, Mucous Membr. moist/pink Cardiovascular: Regular Rate, Normal S1, Normal S2 Lungs: Clear to Auscultation, Normal Air Movement Abdomen: Normal Bowel Sounds, Soft, No Tenderness Neurological: Normal Speech, Cranial Nerves 3-12 NL Extremities: left foot wrapped in surgical dressing with wound vac in place, poorly palpable pulses Current Medications: Current Medications Sig/Aida Start time Last Medication Dose Route Stop Time Status Admin Acetaminophen 650 MG Q6P PRN 04/18 2045 AC PO Acetaminophen 1,000 MG Q6P PRN 04/18 2045 AC 04/19 IV 0556 Atorvastatin Calcium 40 MG 1700 04/18 1700 AC 04/23 PO 1919 Ceftriaxone Sodium 2,000 MG 04/23 AC 04/23 IV 2019 Dextrose/Sodium 1,000 ML Q13H 04/23 0800 DC 04/23 Chloride IV 0802 Diltiazem HCl 240 MG DAILY 04/19 0900 AC 04/24 PO 0759 Escitalopram Oxalate 10 MG DAILY 04/19 0900 AC 04/24 PO 0759 Heparin Sodium 5,000 UNIT Q8 04/18 1544 AC 04/24 (Porcine) SC 0625 Insulin Aspart 0 AT BEDTIME 04/23 2100 AC SC Insulin Aspart 0 TIDAC 04/23 1700 AC 04/24 SC 1215 Insulin Detemir 8 UNITS BID 04/23 2100 AC 04/24 SC 0758 Insulin Detemir 4 UNITS BID 04/23 0900 DC 04/23 SC 0812 Insulin Human Regular 0 Q6 04/23 0806 DC 04/23 SC 0812 Melatonin 5 MG AT BEDTIME 04/18 2245 AC 04/23 PO 2013 Oxycodone/ 2 TAB Q6P PRN 04/18 2045 AC 04/18 Acetaminophen PO 203 Phenytoin 200 MG BID 04/18 2100 AC 04/24 PO 075 Tamsulosin HCl 0.4 MG DAILY 04/19 09 AC 04/24 PO 0759 Vancomycin HCl 1,250 MG BID 04/22 2100 AC 04/24 Sodium Chloride 250 ML IV 0912 Last 24 Hrs of Lab/Av Results Last 24 Hrs of Labs/Mics: Laboratory Tests 04/24/18 0840: Vancomycin Trough 18.3 04/24/18 0611: Anion Gap 8, Estimated GFR > 60, BUN/Creatinine Ratio 12.0, Magnesium 1.9, CBC w Diff NO MAN DIFF REQ, RBC 3.02 L, MCV 82.1, MCH 27.9, MCHC 34.0, RDW 13.0, MPV 7.4, Gran % 78.5 H, Lymphocytes % 12.6 L, Monocytes % 6.9, Eosinophils % 1.7, Basophils % 0.3, Absolute Granulocytes 6.8 H, Absolute Lymphocytes 1.1 L, Absolute Monocytes 0.6, Absolute Eosinophils 0.1, Absolute Basophils 0 04/23/18 2030: Vancomycin Trough 18.8 Assessment/Plan Assessment: 82-year-old gentleman history of noncompliance insulin-dependent diabetes, neuropathy, hypertension, peripheral vascular disease, dementia, previous history of osteomyelitis s/p amputations Patient was initially admitted to the general medicine floor for left third toe osteomyelitis/gangrene s/p debridement on 04/18 by podiatry, transferred to telemetry post-operatively for increased PVC's on monitor. Patient on telemetry is being managed for the followin. Gram positive sepsis- Resolved Now growing MRSA in blood cultures, covered with Vancomycin. Vanc trough level of 18 (decreased vanc to 1gm q12h today) OR cultures growing MRSA and proteus mirabilis (pansensitive). Currently on IV Ceftraixone 2. Left toe gangrene s/p toe amputation and revision POD #1. 3. PACs/PVCs- patient has occasional palpitations, PVCs on telemetry monitoring, cardiology consulted, currently on statin and Diltiazem 4. Hyperglycemia, Diabetic - FSG in the 100s now. Endocrinology on board, insulin adjusted. 5. LEYDA - resolved 6. Chronic Anemia 7. PAD - vascular consulted, CT Abd/Pelvis with bilateral runnoff final report pending - Dr. Álvarez informed that there is good blood flow Plan: Continue tele monitoring Cardiology consulted; appreciate recommendations Monitor vitals qshift Accuchecks TIDAC/qHS Continue IV vancomycin at lower dose and ceftriaxone Random vanc trough level on 04/26 with 4th dose of new vancomycin dosing Levemir 8 units twice daily NovoLog 3 times a day before meals and at bedtime sliding scale Infectious disease consulted. Appreciate recommendations Podiatry is on board. Vascular surgery consulted. Appreciate Recommendations CT Abd/Pelvis with bilateral runnoff final report pending PT eval Continue rest of home medication DVT prophylaxis: Heparin SQ Diet: Diabetic diet Code: Full code Problem List: 1. Osteomyelitis Pain Ratin Pain Location: left foot Pain Goal: Remain pain free Pain Plan: tylenol PRN Tomorrow's Labs & Rationales: cbc ruthp Chen Hernandez MD 04/24/18 1453: Attending MD Review Statement Attending Statement Attending MD Statement: examined this patient, discuss w/resident/PA/LAMP STACK DEVELOPER, agreed w/resident/PA/LAMP STACK DEVELOPER, reviewed EMR data (avail) Attending Assessment/Plan: 82M PMH diabetes, neuropathy, hypertension peripheral vascular disease dementia previous history of osteomyelitis s/p amputations admitted with left third toe osteomyelitis/gangrene s/p debridement on 04/18 by podiatry, now growing mRSA in blood cultures, transferred to telemetry post-operatively for increased PVC's on monitor. Lactate has normalized from 3.8, WBC improving, glucose levels remain uncontrolled. Blood cultures growing mRSA. Went for revision on 04/23 without complication. 1. Sepsis secondary to mRSA bacteremia 2. Left third toe osteomyelitis and gas gangrene 3. Multiple PVCs 4. PAD Plan - Discontinue telemetry - Continue Vancomycin and Ceftriaxone - Will obtain PICC - Will go for TMA on 04/26 - Follow blood and wound cultures - Follow ID, endocrine, podiatry, vascular recommendations - CT angio abdomen/pelvis - Monitor renal function - Continue home medications - DVT PPx
--- NOTE | 2018-04-24 07:39 | PN- Diabetes ---
Assessment/Plan Diabetes Assessment: The patient had further surgery on his foot yesterday and now has a wound VAC in place. He states he is comfortable. He is eating okay. He wants to go home. His fingerstick blood sugar this morning is 145. He is back on his usual insulin. Plan: Suggest continue the present insulin regimen. Continue to monitor sugars 4 times a day. Subjective Subjective: Feels okay Review of Systems Constitutional: Denies: chills, fever. Cardiovascular: Denies: chest pain. Respiratory: Denies: cough, short of breath. Gastrointestinal: Denies: abdominal pain. Objective Last 24 Hrs of Vital Signs/I&O Vital Signs Date Time Temp Pulse Resp B/P B/P Pulse O2 O2 Flow FiO2 Mean Ox Delivery Rate 04/24 0710 98.8 68 18 126/66 95 Room Air 04/23 2200 99.5 69 16 122/64 94 Room Air 04/23 1440 98.4 66 18 124/68 95 Room Air 04/23 1254 98.1 68 16 124/72 97 Room Air 04/23 0812 68 130/70 04/23 0800 Room Air Intake & Output 04/24 0800 04/24 0000 04/23 1600 Intake Total 375 690 625 Output Total 100 145 Balance 275 545 625 Intake, IV 275 330 85 Intake, Oral 100 360 540 Output, 20 Drainage Output, Urine 100 125 Patient 199 lb Weight Weight Bed scale Measurement Method Vital Signs Date Time Temp Pulse Resp B/P B/P Pulse O2 O2 Flow FiO2 Mean Ox Delivery Rate 04/24 0710 98.8 68 18 126/66 95 Room Air 04/23 2200 99.5 69 16 122/64 94 Room Air 04/23 1440 98.4 66 18 124/68 95 Room Air 04/23 1254 98.1 68 16 124/72 97 Room Air 04/23 0812 68 130/70 04/23 0800 Room Air Intake & Output 04/24 0800 04/24 0000 04/23 1600 Intake Total 375 690 625 Output Total 100 145 Balance 275 545 625 Intake, IV 275 330 85 Intake, Oral 100 360 540 Output, 20 Drainage Output, Urine 100 125 Patient 199 lb Weight Weight Bed scale Measurement Method Physical Exam General Appearance: alert, awake, comfortable Neck: normal inspection Cardiovascular: regular rate/rhythm Abdomen: normal bowel sounds Extremities: left foot bandaged and wound VAC Current Medications: Current Medications Sig/Aida Start time Last Medication Dose Route Stop Time Status Admin Acetaminophen 650 MG Q6P PRN 04/18 2045 AC PO Acetaminophen 1,000 MG Q6P PRN 04/18 2045 AC 04/19 IV 0556 Atorvastatin Calcium 40 MG 1700 04/18 1700 AC 04/23 PO 1919 Bacitracin 0 .STK-MED ONE 04/23 1244 DC IM 04/23 1245 Bupivacaine HCl 30 ML .STK-MED ONE 04/23 1244 DC SC 04/23 1245 Ceftriaxone Sodium 2,000 MG 2200 04/23 2200 AC 04/23 IV 2019 Dextrose/Sodium 1,000 ML Q13H 04/23 0800 DC 04/23 Chloride IV 0802 Diltiazem HCl 240 MG DAILY 04/19 09 AC 04/23 PO 08 Escitalopram Oxalate 10 MG DAILY 04/19 0900 AC 04/23 PO 08 Fentanyl Citrate 100 MCG .STK-MED ONE 04/23 0933 DC IM 04/23 0934 Heparin Sodium 5,000 UNIT Q8 04/18 1544 AC 04/24 (Porcine) SC 0625 Insulin Aspart 0 AT BEDTIME 04/23 2100 AC SC Insulin Aspart 0 TIDAC 04/23 1700 AC 04/23 SC 1417 Insulin Aspart 0 Q4 04/23 1000 CAN SC Insulin Aspart 0 AT BEDTIME 04/19 2100 DC 04/20 SC 2139 Insulin Aspart 0 TIDAC 04/19 1200 DC 04/22 SC 1712 Insulin Detemir 8 UNITS BID 04/23 2100 AC 04/23 SC 2014 Insulin Detemir 4 UNITS BID 04/23 0900 DC 04/23 SC 0812 Insulin Detemir 8 UNITS BID 04/21 2100 DC 04/22 SC 2212 Insulin Human Regular 0 Q6 04/23 0806 AR 04/23 SC 0812 Lidocaine 20 ML .STK-MED ONE 04/23 1244 DC ID 04/23 1245 Melatonin 5 MG AT BEDTIME 04/18 2245 AC 04/23 PO 2012 Midazolam HCl 2 MG .STK-MED ONE 04/23 0934 DC IM 04/23 0935 Oxycodone/ 2 TAB Q6P PRN 04/18 2045 AC 04/18 Acetaminophen PO 203 Phenytoin 200 MG BID 04/18 2100 AC 04/23 PO 2013 Povidone Iodine 1 LUCA .STK-MED ONE 04/23 1244 DC TOP 04/23 1245 Sodium Chloride 10 ML .STK-MED ONE 04/23 1244 DC IV 04/23 1245 Tamsulosin HCl 0.4 MG DAILY 04/19 0900 AC 04/23 PO 0812 Vancomycin HCl 1,250 MG BID 04/22 2100 AC 04/23 Sodium Chloride 250 ML IV 2237 Findings Pertinent Lab/Av Results: Laboratory Tests 04/24 04/23 06 2030 Chemistry Sodium Pending Potassium Pending Chloride Pending Carbon Dioxide Pending Anion Gap Pending BUN Pending Creatinine Pending BUN/Creatinine Ratio Pending Magnesium Pending Hematology CBC w Diff Pending WBC Pending RBC Pending Hgb Pending Hct Pending MCV Pending MCH Pending MCHC Pending RDW Pending Plt Count Pending MPV Pending Toxicology Vancomycin Trough (10.0 - 20.0 ug/mL) 18.8
[2018-04-24 07:55] VITALS: BP 122/70
[2018-04-24 07:59] LABS: ABSOLUTE BASOPHIL COUNT 0 /CUMM (0.0-0.2); ABSOLUTE EOSINOPHIL COUNT 0.1 /CUMM (0.0-0.7); ABSOLUTE GRANULOCYTE CT 6.8 /CUMM (1.4-6.5); ABSOLUTE LYMPH COUNT 1.1 /CUMM (1.2-3.4); ABSOLUTE MONOCYTE COUNT 0.6 /CUMM (0.10-0.60); BASOPHIL % 0.3 % (0.0-2.0); EOSINOPHIL % 1.7 % (0-5); GRANULOCYTE % 78.5 % (42.2-75.2); HEMATOCRIT 24.8 % (42-52); MEAN CORPUSCULAR HGB 27.9 PG (27.0-31.0); MEAN CORPUSCULAR VOLUME 82.1 FL (80.0-94.0); MEAN PLATELET VOLUME 7.4 FL (7.4-10.4); PLATELET COUNT 443 /CUMM (130-400); RED BLOOD CELL CT 3.02 /CUMM (4.70-6.10); WHITE BLOOD CELL COUNT 8.7 /CUMM (4.8-10.8)
--- NOTE | 2018-04-24 10:04 | PN- Cardiology ---
Subjective Subjective: Patient is resting comfortably and offers no new complaints. Objective Vital Signs and I&Os Vital Signs Date Time Temp Pulse Resp B/P B/P Pulse O2 O2 Flow FiO2 Mean Ox Delivery Rate 04/24 0800 Room Air 04/24 0759 70 122/70 04/24 0755 70 122/70 04/24 0710 98.8 68 18 126/66 95 Room Air 04/23 2200 99.5 69 16 122/64 94 Room Air 04/23 1440 98.4 66 18 124/68 95 Room Air 04/23 1254 98.1 68 16 124/72 97 Room Air Intake & Output 04/24 1600 04/24 0800 04/24 0000 04/23 1600 04/23 0804/23 0000 Intake Total 375 690 625 400 Output Total 100 145 Balance 275 545 625 400 Intake, IV 275 330 85 Intake, Oral 100 360 540 400 Output, 20 Drainage Output, Urine 100 125 Patient 199 lb 186 lb Weight Weight Bed scale Bed scale Measurement Method Physical Exam: General: no apparent distress. Alert. Eyes: No obvious scleral icterus. HEENT: No jugular venous distention or abnormal jugular venous pulsations. Cardiovascular: Normal intensity S1/S2. Regular. Respiratory: Lungs clear to auscultation bilaterally. Abdomen: Soft, nontender with no guarding or rebound tenderness. Musculoskeletal: Wound VAC in place Skin: warm Current Medications: Current Medications Sig/Aida Start time Last Medication Dose Route Stop Time Status Admin Acetaminophen 650 MG Q6P PRN 04/18 2045 AC PO Acetaminophen 1,000 MG Q6P PRN 04/18 2045 AC 04/19 IV 0556 Atorvastatin Calcium 40 MG 1700 04/18 1700 AC 04/23 PO 1919 Bacitracin 0 .STK-MED ONE 04/23 1244 DC IM 04/23 1245 Bupivacaine HCl 30 ML .STK-MED ONE 04/23 1244 DC SC 04/23 1245 Ceftriaxone Sodium 2,000 MG 04/23 AC 04/23 IV 2019 Dextrose/Sodium 1,000 ML Q13H 04/23 08 DC 04/23 Chloride IV 0802 Diltiazem HCl 240 MG DAILY 04/19 09 AC 04/24 PO 0759 Escitalopram Oxalate 10 MG DAILY 04/19 09 AC 04/24 PO 0759 Heparin Sodium 5,000 UNIT Q8 04/18 1544 AC 04/24 (Porcine) SC 0625 Insulin Aspart 0 AT BEDTIME 04/23 2100 AC AZ Insulin Aspart 0 TIDAC 04/23 1700 AC 04/24 SC 0758 Insulin Detemir 8 UNITS BID 04/23 2100 AC 04/24 SC 0758 Insulin Detemir 4 UNITS BID 04/23 0900 DC 04/23 SC 0812 Insulin Human Regular 0 Q6 04/23 0806 DC 04/23 SC 0812 Lidocaine 20 ML .STK-MED ONE 04/23 1244 DC ID 04/23 1245 Melatonin 5 MG AT BEDTIME 04/18 2245 AC 04/23 PO 2013 Oxycodone/ 2 TAB Q6P PRN 04/18 204 AC 04/18 Acetaminophen PO 203 Phenytoin 200 MG BID 04/18 2100 AC 04/24 PO 075 Povidone Iodine 1 LUCA .STK-MED ONE 04/23 1244 DC TOP 04/23 1245 Sodium Chloride 10 ML .STK-MED ONE 04/23 1244 DC IV 04/23 1245 Tamsulosin HCl 0.4 MG DAILY 04/19 09 AC 04/24 PO 075 Vancomycin HCl 1,250 MG BID 04/22 2100 AC 04/24 Sodium Chloride 250 ML IV 09 Results Last 48 Hrs of Labs/Mics: Laboratory Tests 04/24/18 0840: Vancomycin Trough Pending 04/24/18 0611: Anion Gap 8, Estimated GFR > 60, BUN/Creatinine Ratio 12.0, Magnesium 1.9, CBC w Diff NO MAN DIFF REQ, RBC 3.02 L, MCV 82.1, MCH 27.9, MCHC 34.0, RDW 13.0, MPV 7.4, Gran % 78.5 H, Lymphocytes % 12.6 L, Monocytes % 6.9, Eosinophils % 1.7, Basophils % 0.3, Absolute Granulocytes 6.8 H, Absolute Lymphocytes 1.1 L, Absolute Monocytes 0.6, Absolute Eosinophils 0.1, Absolute Basophils 0 04/23/18 2030: Vancomycin Trough 18.8 04/23/18 0609: CBC w Diff NO MAN DIFF REQ, RBC 3.23 L, MCV 82.8, MCH 28.2, MCHC 34.1, RDW 13.6 , MPV 7.3 L, Gran % 78.9 H, Lymphocytes % 10.9 L, Monocytes % 7.6, Eosinophils % 2.2, Basophils % 0.4, Absolute Granulocytes 6.9 H, Absolute Lymphocytes 0.9 L, Absolute Monocytes 0.7 H, Absolute Eosinophils 0.2, Absolute Basophils 0 04/22/18 1115: Vancomycin Trough 7.4 L Recent Imaging Studies: Telemetry tracings are personally reviewed and shows sinus rhythm with PACs Echocardiogram CONCLUSIONS Normal left ventricular systolic function with mild concentric hypertrophy. Mild to moderate Left atrial enlargement. No significant valvular abnormalities noted. 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 Assessment/Plan Assessment/Plan 1. Gangrene/osteomyelitis status post partial resection 2. Bacteremia 3. Diabetes 4. Peripheral vascular disease 5. Hypertension The patient is hemodynamically stable with no sustained arrhythmias on telemetry. Echocardiogram as above with normal biventricular function. Continue on daily statin therapy and initiate low dose enteric coated aspirin daily when possible. Antibiotics course per ID. Willian Flores MD FACC Continue telemetry? No
--- NOTE | 2018-04-24 11:59 | PN- Infect Dx ---
Subjective Subjective: Afebrile without complaints Objective Last 24 Hrs of Vital Signs/I&O Vital Signs Date Time Temp Pulse Resp B/P B/P Pulse O2 O2 Flow FiO2 Mean Ox Delivery Rate 04/24 0800 Room Air 04/24 0759 70 122/70 04/24 0755 70 122/70 04/24 0710 98.8 68 18 126/66 95 Room Air 04/23 2200 99.5 69 16 122/64 94 Room Air 04/23 1440 98.4 66 18 124/68 95 Room Air 04/23 1254 98.1 68 16 124/72 97 Room Air Intake & Output 04/24 1600 04/24 0800 04/24 0000 Intake Total 375 690 Output Total 100 145 Balance 275 545 Intake, IV 275 330 Intake, Oral 100 360 Output, 20 Drainage Output, Urine 100 125 Patient 199 lb Weight Weight Bed scale Measurement Method Physical Exam Other Physical Findings: He appears comfortable in no acute distress Lungs are clear Heart regular rhythm with no murmur Extremities left foot dressing intact with wound VAC in place Results Last 24 Hours of Lab Results: Laboratory Tests 04/24 04/24 04/23 0840 0611 2030 Chemistry Sodium (137 - 145 mmol/L) 135 L Potassium (3.5 - 5.1 mmol/L) 4.4 Chloride (98 - 107 mmol/L) 103 Carbon Dioxide (22 - 30 mmol/L) 24 Anion Gap (5 - 16) 8 BUN (9 - 20 mg/dL) 12 Creatinine (0.7 - 1.2 mg/dL) 1.0 Estimated GFR (>60 ml/min) > 60 BUN/Creatinine Ratio (7 - 25 %) 12.0 Magnesium (1.6 - 2.3 mg/dL) 1.9 Hematology CBC w Diff NO MAN DIFF REQ WBC (4.8 - 10.8 /CUMM) 8.7 RBC (4.70 - 6.10 /CUMM) 3.02 L Hgb (14.0 - 18.0 G/DL) 8.4 L Hct (42 - 52 %) 24.8 L MCV (80.0 - 94.0 FL) 82.1 MCH (27.0 - 31.0 PG) 27.9 MCHC (33.0 - 37.0 G/DL) 34.0 RDW (11.5 - 14.5 %) 13.0 Plt Count (130 - 400 /CUMM) 443 H MPV (7.4 - 10.4 FL) 7.4 Gran % (42.2 - 75.2 %) 78.5 H Lymphocytes % (20.5 - 51.1 %) 12.6 L Monocytes % (1.7 - 9.3 %) 6.9 Eosinophils % (0 - 5 %) 1.7 Basophils % (0.0 - 2.0 %) 0.3 Absolute Granulocytes (1.4 - 6.5 /CUMM) 6.8 H Absolute Lymphocytes (1.2 - 3.4 /CUMM) 1.1 L Absolute Monocytes (0.10 - 0.60 /CUMM) 0.6 Absolute Eosinophils (0.0 - 0.7 /CUMM) 0.1 Absolute Basophils (0.0 - 0.2 /CUMM) 0 Toxicology Vancomycin Trough (10.0 - 20.0 ug/mL) 18.3 18.8 Last 24 Hours of Av Results: Blood cultures April 19 negative Recent Imaging Studies: Echocardiogram April 20 no valvular abnormalities Assessment/Plan ID Impression: Stable, with temperatures and white blood cell count remaining normal, status post revisional partial third ray resection of the left foot, with placement of a wound VAC, yesterday, now 6 days status post open partial third ray resection for gangrene/osteomyelitis, with plans for a left TMA on April 26. He is now on Vancomycin and Ceftriaxone for MRSA/Proteus isolated from his OR cultures and MRSA alone isolated from the blood cultures, with his echocardiogram negative for any vegetations. Endocarditis is possible and a JCARLOS will need to be considered, though he will likely require a prolonged course of antibiotics for residual osteomyelitis. His Vancomycin trough level is therapeutic but, as it is at the upper limits, feel that his dose can be decreased. He has been evaluated by Vascular surgery, with a CTA of the abdomen and pelvis with bilateral lower extremity runoff recommended. Suggestion: 1. Further evaluation of his vascular status per Vascular surgery 2. Await left TMA on April 26 3. Proceed with placement of a PICC 4. Decrease Vancomycin to 1 g IV every 12 hours and recheck a random Vancomycin level with the fourth dose 5. Continue Ceftriaxone
[2018-04-24 14:05] VITALS: BP 124/66
--- NOTE | 2018-04-24 14:50 | RADIOLOGY REPORT ---
EXAMINATION: CHEST 1 VIEW CLINICAL INFORMATION: PICC line placement. COMPARISON: 02/16/2018. TECHNIQUE: An AP view of the chest is provided. FINDINGS: The cardiac silhouette is at the upper limits of normal, though stable. A right PICC line is in place. The tip overlies the distal SVC. The mediastinal and hilar contours are unremarkable. There are neither pleural effusions nor pneumothoraces. There are no consolidations. The osseous structures are stable. IMPRESSION: No consolidations. Right PICC line in place.
--- NOTE | 2018-04-24 16:42 | CT SCAN REPORT ---
STUDY PERFORMED: CTA OF THE ABDOMEN, PELVIS AND LOWER EXTREMITY RUNOFF WITH CONTRAST INTERPRETING VASCULAR \T\ INTERVENTIONAL RADIOLOGIST: Joycelyn Álvarez MD, PhD HISTORY: Left toe gangrene. TECHNIQUE: Routine abdominal aorta and lower extremity runoff CTA protocol with contrast was performed. 95 mL of Optiray 320 was administered. Images were evaluated on independent dedicated 3-D workstation and 3-D images were reconstructed with concurrent radiologist supervision and subsequently interpreted. TOTAL DLP: 1137.08 mGy-cm COMPARISON: CT abdomen and pelvis 03/13/2013, CT chest 01/03/2011. FINDINGS: VASCULAR: Mesenteric Arteries: The celiac axis, superior mesenteric artery and inferior mesenteric artery are patent. There is a tiny splenic artery aneurysm that is partially calcified which measures 0.7 x 0.9 cm. Renal Arteries: Single renal arteries are patent bilaterally. Minimal ostial calcifications, left greater than right that do not result in a significant stenosis. Infrarenal Abdominal Aorta: Atherosclerotic calcifications without evidence of aneurysm, dissection or stenosis. Right Lower Extremity Arterial Perfusion: Scattered atherosclerotic calcifications of the common iliac artery and internal iliac artery without evidence of aneurysm, dissection or stenosis. The external iliac artery and common femoral artery overall are unremarkable. The profunda artery is patent and unremarkable. Scattered atherosclerotic calcifications of the superficial femoral artery and popliteal artery without evidence of aneurysm, dissection or flow-limiting stenosis. Patent three-vessel runoff. Anatomical variation with a diminutive posterior tibial artery and bifurcated peroneal artery which distally takes up the territory of the posterior tibial artery. Scattered atherosclerotic calcifications of the runoff vessels which maintain patency. The anterior tibial artery gives rise to the dorsalis pedis. Left Lower Extremity Arterial Perfusion: Atherosclerotic calcifications of the common iliac artery and internal iliac artery without evidence of aneurysm, dissection or stenosis. The external iliac artery and common femoral artery demonstrate diffuse scattered mild calcifications and are otherwise unremarkable. The profunda artery is widely patent. A few scattered calcifications of the superficial femoral artery and popliteal artery without evidence of aneurysm, dissection or flow-limiting stenosis. Intact three-vessel runoff. The distal aspects of the runoff vessels demonstrate calcifications with multifocal stenoses, the degree of which is difficult to estimate due to the irregularity of the vessel wall and artifact from the calcium deposits. NONVASCULAR: Lung Bases: Slightly increased prominence of a right middle lobe nodule measuring 1.0 cm previously 0.8 cm on 01/03/2011. Moderate dependent changes bilaterally. Trace left pleural effusion and compressive atelectasis left lung base. Gynecomastia, unchanged. Liver, Gallbladder, and Biliary Tree: Lobulated liver cysts, slightly increased in size when compared with the prior study. A few additional scattered subcentimeter hypodensities are seen within the liver parenchyma, too small to characterize but statistically most likely represent the same. No suspicious liver masses are identified. No intrahepatic biliary dilatation. Cholelithiasis without CT evidence of cholecystitis. Pancreas: Unremarkable. Spleen: Unremarkable. Adrenal Glands: Unchanged punctate calcifications associated with the right adrenal gland of doubtful clinical significance. The left adrenal gland is unremarkable. Kidneys and Ureters: The kidneys are normal in size, shape, and attenuation. No hydronephrosis, hydroureter, or calculi seen. No perinephric stranding. A few scattered bilateral cortical hypodensities and parapelvic hypodensities on the left, too small to characterize further but most likely represent cysts. Bladder: Unremarkable. Gastrointestinal Tract: Extensive diverticular disease predominately involving the sigmoid without CT evidence of diverticulitis. The appendix is unremarkable. No evidence of bowel obstruction. Abdominal Wall: No significant hernia is appreciated. Lymph Nodes: Normal. Pelvic Viscera: Unremarkable. Osseous Structures: Multiple amputations of the left foot. Where the 3rd digit once existed is a crater containing either gas bubbles or packing material. This communicates deeply into the plantar aspect of the foot where multiple loculations of gas are seen with a trace amount of adjacent hypoattenuating material, possibly purulent fluid. There is a thick enhancing rind surrounding it. IMPRESSION: 1. Mild peripheral arterial disease. There is intact three-vessel runoff to the left lower extremity. 2. Left foot toe amputations with evidence of an open ulcer where the 3rd digit phalanges and metatarsal head once existed. This appears to communicate with a long, thin collection in the plantar surface of the foot containing loculations of air, suspicious for abscess. 3. Apparent slight increase in the size of a right middle lobe pulmonary nodule, now measuring 1.0 cm. This is changed on the order of 2 mm since 2010, strongly suggesting this to be a benign entity. Furthermore, differences in the patient positioning within the CT scanner as well as differences in technique since 2010 could also account for this minimal change. 4. Liver cysts. 5. Cholelithiasis without CT evidence of cholecystitis. 6. Subcentimeter splenic artery aneurysm. 7. Diverticular disease without CT evidence of diverticulitis. 8. A few scattered tiny well-defined renal cortical hypodensities, a nonspecific finding but statistically most likely representing renal cysts.
[2018-04-24 22:53] VITALS: BP 130/72
[2018-04-25 06:41] VITALS: BP 126/60
--- NOTE | 2018-04-25 07:41 | PN- Housestaff ---
Franky MONTE,Baltazar 04/25/18 0741: Subjective Follow-up For: MRSA Bacteremia Left toe gangrene s/p amputation PACs/PVCs Hyperglycemia Tele-Events Since Last Visit: Off Tele Subjective: Patient was seen and examined today. Patient asking for breakfast this morning. Patient appears forgetful - this is apparently an ongoing problem for him. Patient is alert and oriented x3. Patient denies any complaints of foot pain, chest pain, palpitations, fever/chills, abdominal pain, n/v/c/d, hematuria/ dysuria. No acute events overnight. Patient is planned to have a TMA tomorrow. Review of Systems Constitutional: Reports: see HPI. Objective Last 24 Hrs of Vital Signs/I&O Vital Signs Date Time Temp Pulse Resp B/P B/P Pulse O2 O2 Flow FiO2 Mean Ox Delivery Rate 04/25 0830 98.2 65 20 126/60 04/25 0641 98.2 65 20 126/60 94 Room Air 04/25 0000 Room Air 04/24 2253 99.0 63 18 130/72 95 Room Air 04/24 1405 98.4 68 18 124/66 95 Room Air Intake & Output 04/25 1600 04/25 0800 04/25 0000 Intake Total 220 630 Output Total 225 Balance -5 630 Intake, IV 270 Intake, Oral 220 360 Output, 50 Drainage Output, Urine 175 Physical Exam General Appearance: Alert, Oriented X3, Cooperative, No Acute Distress Skin: No Rashes Sepsis Skin Exam (color): Normal for Ethnicity HEENT: Atraumatic, PERRLA, EOMI, Mucous Membr. moist/pink Cardiovascular: Regular Rate, Normal S1, Normal S2 Lungs: Clear to Auscultation, Normal Air Movement Abdomen: Normal Bowel Sounds, Soft, No Tenderness Neurological: Normal Speech, Cranial Nerves 3-12 NL Extremities: No Clubbing, No Cyanosis, No Edema, No Tenderness/Swelling, left foot covered with dressing with wound vac in place Vascular: Pulses Symmetrical Current Medications: Current Medications Sig/Aida Start time Last Medication Dose Route Stop Time Status Admin Acetaminophen 650 MG Q6P PRN 04/18 2045 AC PO Acetaminophen 1,000 MG Q6P PRN 04/18 2045 AC 04/19 IV 0556 Atorvastatin Calcium 40 MG 04/18 170 AC 04/24 PO 1730 Ceftriaxone Sodium 2,000 MG 04/23 AC 04/24 IV 2104 Diltiazem HCl 240 MG DAILY 04/19 09 AC 04/25 PO 0830 Escitalopram Oxalate 10 MG DAILY 04/19 09 AC 04/25 PO 0830 Heparin Sodium 5,000 UNIT Q8 04/18 1544 AC 04/25 (Porcine) SC 0501 Insulin Aspart 0 AT BEDTIME 04/23 2100 AC SC Insulin Aspart 0 TIDAC 04/23 1700 AC 04/25 SC 0822 Insulin Detemir 8 UNITS BID 04/23 2100 AC 04/25 SC 0823 Melatonin 5 MG AT BEDTIME 04/18 2245 AC 04/24 PO 210 Oxycodone/ 2 TAB Q6P PRN 04/18 204 AC 04/18 Acetaminophen PO 2038 Phenytoin 200 MG BID 04/18 2100 AC 04/25 PO 0830 Tamsulosin HCl 0.4 MG DAILY 04/19 09 AC 04/25 PO 0830 Vancomycin HCl 1,000 MG BID 04/24 2100 AC 04/25 Sodium Chloride 250 ML IV 08 Vancomycin HCl 1,250 MG BID 04/22 2100 DC 04/24 Sodium Chloride 250 ML IV 04/24 Last 24 Hrs of Lab/Av Results Last 24 Hrs of Labs/Mics: Laboratory Tests 04/25/18 0630: Anion Gap 7, Estimated GFR > 60, BUN/Creatinine Ratio 10.0, CBC w Diff Pending, WBC Pending, RBC Pending, Hgb Pending, Hct Pending, MCV Pending, MCH Pending, MCHC Pending, RDW Pending, Plt Count Pending, MPV Pending Assessment/Plan Assessment: 82-year-old gentleman history of noncompliance insulin-dependent diabetes, neuropathy, hypertension, peripheral vascular disease, dementia, previous history of osteomyelitis s/p amputations Patient was initially admitted to the general medicine floor for left third toe osteomyelitis/gangrene s/p debridement on 04/18 by podiatry, transferred to telemetry post-operatively for increased PVC's on monitor. Patient on telemetry is being managed for the followin. Gram positive sepsis- Resolved Now growing MRSA in blood cultures, covered with Vancomycin. Vanc trough level of 18 (decreased vanc to 1gm q12h ) OR cultures growing MRSA and proteus mirabilis (pansensitive). Currently on IV Ceftraixone 2. Left toe gangrene s/p toe amputation and revision POD #1. 3. PACs/PVCs- patient has occasional palpitations, PVCs on telemetry monitoring, cardiology consulted, currently on statin and Diltiazem 4. Hyperglycemia, Diabetic - FSG in the 100s now. Endocrinology on board, insulin adjusted. 5. LEYDA - resolved 6. Chronic Anemia 7. PAD - vascular consulted, CT Abd/Pelvis with bilateral runnoff final report pending - Dr. Álvarez informed that there is good blood flow Plan: Continue tele monitoring Cardiology consulted; appreciate recommendations Monitor vitals qshift Accuchecks TIDAC/qHS Continue IV vancomycin at lower dose and ceftriaxone Random vanc trough level on 04/26 with 4th dose of new vancomycin dosing Levemir reduced to 6 units twice daily today, with 4 units once at bedtime today in anticipation for surgery NovoLog 3 times a day before meals and at bedtime sliding scale, adjusted per endocrinology recs Novolin after midnight, IV D5 1/2NS after midnight Infectious disease consulted. Appreciate recommendations Podiatry is on board. Vascular surgery consulted. Appreciate Recommendations PT eval Continue rest of home medication DVT prophylaxis: Heparin SQ Diet: Diabetic diet, NPO after midnight for surgery Code: Full code Problem List: 1. Osteomyelitis Pain Ratin Pain Location: foot Pain Goal: Remain pain free Pain Plan: tylenol PRN Tomorrow's Labs & Rationales: cbc bep lfts Chen Hernandez MD 04/25/18 1418: Attending MD Review Statement Attending Statement Attending MD Statement: examined this patient, discuss w/resident/PA/ELECTROENCEPHALOGRAPH TECHNOLOGIST, agreed w/resident/PA/ELECTROENCEPHALOGRAPH TECHNOLOGIST, reviewed EMR data (avail) Attending Assessment/Plan: 82M PMH diabetes, neuropathy, hypertension peripheral vascular disease dementia previous history of osteomyelitis s/p amputations admitted with left third toe osteomyelitis/gangrene s/p debridement on 04/18 by podiatry, now growing mRSA in blood cultures, transferred to telemetry post-operatively for increased PVC's on monitor. Lactate has normalized from 3.8, WBC improving, glucose levels remain uncontrolled. Blood cultures growing mRSA. Went for revision on 04/23 without complication. 1. Sepsis secondary to mRSA bacteremia 2. Left third toe osteomyelitis and gas gangrene 3. Multiple PVCs 4. PAD Plan - Discontinue telemetry - Continue Vancomycin and Ceftriaxone - PICC placed 04/24 - Will go for TMA on 04/26 - Follow blood and wound cultures - Follow ID, endocrine, podiatry, vascular recommendations - CT angio abdomen/pelvis - Monitor renal function - Continue home medications - DVT PPx - NWB for 2 weeks, will require rehab
--- NOTE | 2018-04-25 08:24 | PN- Diabetes ---
Assessment/Plan Diabetes Assessment: The patient states he feels okay. He is scheduled for further surgery on his foot tomorrow by Dr. Antoine. The patient's fingerstick blood sugar just at have been becoming low. He was 145 before breakfast, 184 before lunch, 91 before dinner, 99 at bedtime. This morning his sugar is 85 Plan: Suggest reduce Levemir to 6 units twice a day. In addition we can begin to reduce the patient's sliding scale NovoLog. Sliding scale NovoLog before meals should be 80-150 give 3 units NovoLog, 151-200 give 4 units NovoLog, 201-250 give 5 units NovoLog, 251-300 give 6 units NovoLog, 301-350 give 7 units NovoLog , 351-400 give 8 units NovoLog. If the patient is to have surgery tomorrow we can begin an IV with D5 half- normal saline at 75 cc per hour tonight at midnight. In addition we can reduce his Levemir dose tonight to 4 units at bedtime for tonight only. While n.p.o. the patient should be on sliding scale NovoLog every 4 hours. Sliding scale NovoLog while n.p.o. should be less than 150 give no insulin, 151- 200 give 2 units NovoLog, 201-250 give 3 units NovoLog, 251-300 give 4 units NovoLog, 301-350 give 5 units NovoLog, 351-400 give 6 units NovoLog. When the patient is eating again we should place him back on his usual mealtime insulin schedule including Levemir 6 units twice a day and sliding scale NovoLog before meals with a separate sliding scale at bedtime. Subjective Subjective: Feels okay and wants to go Review of Systems Constitutional: Denies: chills, fever. Cardiovascular: Denies: chest pain. Gastrointestinal: Denies: abdominal pain. Objective Last 24 Hrs of Vital Signs/I&O Vital Signs Date Time Temp Pulse Resp B/P B/P Pulse O2 O2 Flow FiO2 Mean Ox Delivery Rate 04/25 0641 98.2 65 20 126/60 94 Room Air 04/25 0000 Room Air 04/24 2253 99.0 63 18 130/72 95 Room Air 04/24 1405 98.4 68 18 124/66 95 Room Air Intake & Output 04/25 1600 04/25 0800 04/25 0000 Intake Total 220 630 Output Total 225 Balance -5 630 Intake, IV 270 Intake, Oral 220 360 Output, 50 Drainage Output, Urine 175 Vital Signs Date Time Temp Pulse Resp B/P B/P Pulse O2 O2 Flow FiO2 Mean Ox Delivery Rate 04/25 0641 98.2 65 20 126/60 94 Room Air 04/25 0000 Room Air 04/24 2253 99.0 63 18 130/72 95 Room Air 04/24 1405 98.4 68 18 124/66 95 Room Air Intake & Output 04/25 1600 04/25 0800 04/25 0000 Intake Total 220 630 Output Total 225 Balance -5 630 Intake, IV 270 Intake, Oral 220 360 Output, 50 Drainage Output, Urine 175 Physical Exam General Appearance: alert, awake, comfortable Head: normal appearance Respiratory: normal breath sounds Cardiovascular: regular rate/rhythm Abdomen: normal bowel sounds Extremities: left foot bandaged Current Medications: Current Medications Sig/Aida Start time Last Medication Dose Route Stop Time Status Admin Acetaminophen 650 MG Q6P PRN 04/18 2045 AC PO Acetaminophen 1,000 MG Q6P PRN 04/18 2045 AC 04/19 IV 0556 Atorvastatin Calcium 40 MG 1700 04/18 170 AC 04/24 PO 173 Ceftriaxone Sodium 2,000 MG 04/23 AC 04/24 IV 2104 Diltiazem HCl 240 MG DAILY 04/19 09 AC 04/24 PO 075 Escitalopram Oxalate 10 MG DAILY 04/19 09 AC 04/24 PO 0759 Heparin Sodium 5,000 UNIT Q8 04/18 1544 AC 04/25 (Porcine) SC 0501 Insulin Aspart 0 AT BEDTIME 04/23 2100 AC SC Insulin Aspart 0 TIDAC 04/23 170 AC 04/24 SC 173 Insulin Detemir 8 UNITS BID 04/23 2100 AC 04/24 SC 210 Melatonin 5 MG AT BEDTIME 04/18 2245 AC 04/24 PO 210 Oxycodone/ 2 TAB Q6P PRN 04/18 2045 AC 04/18 Acetaminophen PO 203 Phenytoin 200 MG BID 04/18 2100 AC 04/24 PO 210 Tamsulosin HCl 0.4 MG DAILY 04/19 09 AC 04/24 PO 0759 Vancomycin HCl 1,000 MG BID 04/24 2100 AC 04/24 Sodium Chloride 250 ML IV 210 Vancomycin HCl 1,250 MG BID 04/22 2100 DC 05/30 Sodium Chloride 250 ML IV 04/24 2059 4029 Findings Pertinent Lab/Av Results: Laboratory Tests 04/25 04/24 04/24 04/23 0630 0840 0655 2030 Chemistry Sodium (137 - 145 mmol/L) Pending 135 L Potassium (3.5 - 5.1 mmol/L) Pending 4.4 Chloride (98 - 107 mmol/L) Pending 103 Carbon Dioxide (22 - 30 mmol/L) Pending 24 Anion Gap (5 - 16) Pending 8 BUN (9 - 20 mg/dL) Pending 12 Creatinine (0.7 - 1.2 mg/dL) Pending 1.0 Estimated GFR (>60 ml/min) > 60 BUN/Creatinine Ratio (7 - 25 %) Pending 12.0 Magnesium (1.6 - 2.3 mg/dL) 1.9 Hematology CBC w Diff Pending NO MAN DIFF REQ WBC (4.8 - 10.8 /CUMM) Pending 8.7 RBC (4.70 - 6.10 /CUMM) Pending 3.02 L Hgb (14.0 - 18.0 G/DL) Pending 8.4 L Hct (42 - 52 %) Pending 24.8 L MCV (80.0 - 94.0 FL) Pending 82.1 MCH (27.0 - 31.0 PG) Pending 27.9 MCHC (33.0 - 37.0 G/DL) Pending 34.0 RDW (11.5 - 14.5 %) Pending 13.0 Plt Count (130 - 400 /CUMM) Pending 443 H MPV (7.4 - 10.4 FL) Pending 7.4 Gran % (42.2 - 75.2 %) 78.5 H Lymphocytes % (20.5 - 51.1 %) 12.6 L Monocytes % (1.7 - 9.3 %) 6.9 Eosinophils % (0 - 5 %) 1.7 Basophils % (0.0 - 2.0 %) 0.3 Absolute Granulocytes (1.4 - 6.5 /CUMM) 6.8 H Absolute Lymphocytes (1.2 - 3.4 /CUMM) 1.1 L Absolute Monocytes (0.10 - 0.60 /CUMM) 0.6 Absolute Eosinophils (0.0 - 0.7 /CUMM) 0.1 Absolute Basophils (0.0 - 0.2 /CUMM) 0 Toxicology Vancomycin Trough (10.0 - 20.0 ug/mL) 18.3 18.8
[2018-04-25 08:32] LABS: ABSOLUTE BASOPHIL COUNT 0 /CUMM (0.0-0.2); ABSOLUTE EOSINOPHIL COUNT 0.2 /CUMM (0.0-0.7); ABSOLUTE LYMPH COUNT 0.9 /CUMM (1.2-3.4); ABSOLUTE MONOCYTE COUNT 0.5 /CUMM (0.10-0.60); BASOPHIL % 0.5 % (0.0-2.0); EOSINOPHIL % 2.1 % (0-5); GRANULOCYTE % 78.2 % (42.2-75.2); HEMATOCRIT 25.8 % (42-52); MEAN CORPUSCULAR HGB 27.5 PG (27.0-31.0); MEAN CORPUSCULAR HGB CONC 33.2 G/DL (33.0-37.0); MEAN CORPUSCULAR VOLUME 82.8 FL (80.0-94.0); MEAN PLATELET VOLUME 7.1 FL (7.4-10.4); PLATELET COUNT 493 /CUMM (130-400); RBC DISTRIBUTION WIDTH 13.5 % (11.5-14.5); RED BLOOD CELL CT 3.12 /CUMM (4.70-6.10); WHITE BLOOD CELL COUNT 7.6 /CUMM (4.8-10.8)
--- NOTE | 2018-04-25 09:13 | PN- Cardiology ---
Subjective Subjective: Patient not on telemetry. Feels well appears comfortable had debridement and amputation of the left foot yesterday. No cardiac issues Objective Vital Signs and I&Os Vital Signs Date Time Temp Pulse Resp B/P B/P Pulse O2 O2 Flow FiO2 Mean Ox Delivery Rate 04/25 0830 98.2 65 20 126/60 04/25 0641 98.2 65 20 126/60 94 Room Air 04/25 0000 Room Air 04/24 2253 99.0 63 18 130/72 95 Room Air 04/24 1405 98.4 68 18 124/66 95 Room Air Intake & Output 04/25 1600 04/25 0800 04/25 0000 04/24 1600 04/24 0800 04/24 0000 Intake Total 965 089 6010 375 690 Output Total 225 125 100 145 Balance -5 630 1165 275 545 Intake, IV 270 270 275 330 Intake, Oral 384 374 8067 100 360 Number 1 Bowel Movements Output, 50 25 20 Drainage Output, Urine 175 100 100 125 Patient 199 lb Weight Weight Bed scale Measurement Method Physical Exam: Physical exam he appeared comfortable Head normocephalic atraumatic Eyes sclera anicteric conjunctiva showed no pallor extraocular muscles were normal Neck no jugular venous distention no thyroid masses no palpable nodes Chest lungs were clear bilaterally Heart regular rhythm. No murmurs. S2 is physiologically split Abdomen soft no organomegaly bowel sounds normal Extremities, left forefoot dressing Neurological no gross motor or sensory deficits Current Medications: Current Medications Sig/Aida Start time Last Medication Dose Route Stop Time Status Admin Acetaminophen 650 MG Q6P PRN 04/18 2045 AC PO Acetaminophen 1,000 MG Q6P PRN 04/18 2045 AC 04/19 IV 0556 Atorvastatin Calcium 40 MG 04/18 1700 AC 04/24 PO 1730 Ceftriaxone Sodium 2,000 MG 04/23 2200 AC 04/24 IV 2104 Diltiazem HCl 240 MG DAILY 04/19 09 AC 04/25 PO 0830 Escitalopram Oxalate 10 MG DAILY 04/19 09 AC 04/25 PO 0830 Heparin Sodium 5,000 UNIT Q8 04/18 1544 AC 04/25 (Porcine) SC 0501 Insulin Aspart 0 AT BEDTIME 04/23 2100 AC SC Insulin Aspart 0 TIDAC 04/23 1700 AC 04/25 SC 0822 Insulin Detemir 8 UNITS BID 04/23 2100 AC 04/25 SC 0823 Melatonin 5 MG AT BEDTIME 04/18 2245 AC 04/24 PO 210 Oxycodone/ 2 TAB Q6P PRN 04/18 2045 AC 04/18 Acetaminophen PO 2038 Phenytoin 200 MG BID 04/18 2100 AC 04/25 PO 0830 Tamsulosin HCl 0.4 MG DAILY 04/19 0900 AC 04/25 PO 0830 Vancomycin HCl 1,000 MG BID 04/24 2100 AC 04/25 Sodium Chloride 250 ML IV 08 Vancomycin HCl 1,250 MG BID 04/22 2100 DC 04/24 Sodium Chloride 250 ML IV 04/24 2059 09 Results Last 48 Hrs of Labs/Mics: Laboratory Tests 04/25/18 0630: Anion Gap 7, Estimated GFR > 60, BUN/Creatinine Ratio 10.0, CBC w Diff NO MAN DIFF REQ, RBC 3.12 L, MCV 82.8, MCH 27.5, MCHC 33.2, RDW 13.5, MPV 7.1 L, Gran % 78.2 H, Lymphocytes % 12.0 L, Monocytes % 7.2, Eosinophils % 2.1, Basophils % 0.5, Absolute Granulocytes 6.0, Absolute Lymphocytes 0.9 L, Absolute Monocytes 0.5, Absolute Eosinophils 0.2, Absolute Basophils 0 04/24/18 0840: Vancomycin Trough 18.3 04/24/18 0611: Anion Gap 8, Estimated GFR > 60, BUN/Creatinine Ratio 12.0, Magnesium 1.9, CBC w Diff NO MAN DIFF REQ, RBC 3.02 L, MCV 82.1, MCH 27.9, MCHC 34.0, RDW 13.0, MPV 7.4, Gran % 78.5 H, Lymphocytes % 12.6 L, Monocytes % 6.9, Eosinophils % 1.7, Basophils % 0.3, Absolute Granulocytes 6.8 H, Absolute Lymphocytes 1.1 L, Absolute Monocytes 0.6, Absolute Eosinophils 0.1, Absolute Basophils 0 04/23/18 2030: Vancomycin Trough 18.8 Assessment/Plan Assessment/Plan In summary this 82-year-old gentleman has a following problems 1. Gangrene/osteomyelitis status post partial resection 2. Bacteremia 3. Diabetes 4. Peripheral vascular disease 5. Hypertension He is stable postsurgery. Please call us if needed. Thank you for allowing us the opportunity of participating in his care Continue telemetry? Not applicable
[2018-04-25 14:45] VITALS: BP 118/62
[2018-04-25 23:06] VITALS: BP 122/78
[2018-04-26 05:47] LABS: ABSOLUTE BASOPHIL COUNT 0 /CUMM (0.0-0.2); ABSOLUTE EOSINOPHIL COUNT 0.2 /CUMM (0.0-0.7); ABSOLUTE GRANULOCYTE CT 5.7 /CUMM (1.4-6.5); ABSOLUTE LYMPH COUNT 0.9 /CUMM (1.2-3.4); ABSOLUTE MONOCYTE COUNT 0.5 /CUMM (0.10-0.60); BASOPHIL % 0.5 % (0.0-2.0); EOSINOPHIL % 2.7 % (0-5); GRANULOCYTE % 77.6 % (42.2-75.2); HEMATOCRIT 24.7 % (42-52); MEAN CORPUSCULAR HGB 28.2 PG (27.0-31.0); MEAN CORPUSCULAR HGB CONC 34.2 G/DL (33.0-37.0); MEAN CORPUSCULAR VOLUME 82.5 FL (80.0-94.0); MEAN PLATELET VOLUME 6.5 FL (7.4-10.4); PLATELET COUNT 484 /CUMM (130-400); RBC DISTRIBUTION WIDTH 13.8 % (11.5-14.5); RED BLOOD CELL CT 2.99 /CUMM (4.70-6.10); WHITE BLOOD CELL COUNT 7.3 /CUMM (4.8-10.8)
[2018-04-26 06:45] VITALS: BP 105/56
--- NOTE | 2018-04-26 07:29 | PN- Housestaff ---
Franky MONTE,Baltazar 04/26/18 0728: Subjective Follow-up For: MRSA Bacteremia Left toe gangrene s/p amputation PACs/PVCs Hyperglycemia Tele-Events Since Last Visit: Off Tele Subjective: Patient was seen and examined today. Reports no complaints. Patient states he is nervous about the surgery today. Patient denies chest pain, palpitations, shortness of breath, abdominal pain, n/v/c/d, dysuria/hematuria, foot pain. No acute events overnight. Review of Systems Constitutional: Reports: see HPI. Objective Last 24 Hrs of Vital Signs/I&O Vital Signs Date Time Temp Pulse Resp B/P B/P Pulse O2 O2 Flow FiO2 Mean Ox Delivery Rate 04/26 0937 61 150/76 04/26 0645 98.5 61 20 105/56 97 Room Air 04/25 2306 97.5 68 18 122/78 94 Room Air 04/25 1627 Room Air 2.0L 04/25 1445 98.1 60 20 118/62 95 Room Air Intake & Output 04/26 1600 04/26 0800 04/26 0000 Intake Total 600 Output Total 175 Balance 425 Intake, IV 600 Output, Urine 175 Patient 196 lb Weight Physical Exam General Appearance: Alert, Oriented X3, Cooperative, No Acute Distress Skin: No Rashes Skin Temp/Moisture Exam: Warm/Dry HEENT: Atraumatic, Mucous Membr. moist/pink Cardiovascular: Regular Rate, Normal S1, Normal S2 Lungs: Clear to Auscultation, Normal Air Movement Abdomen: Normal Bowel Sounds, Soft, No Tenderness Neurological: Normal Speech, Cranial Nerves 3-12 NL Extremities: No Clubbing, No Cyanosis, No Edema, No Tenderness/Swelling, left foot wrapped in bandages with wound vac in place Vascular: poorly palpable pulses Current Medications: Current Medications Sig/Aida Start time Last Medication Dose Route Stop Time Status Admin Acetaminophen 650 MG Q6P PRN 04/18 2045 AC PO Acetaminophen 1,000 MG Q6P PRN 04/18 2045 AC 04/19 IV 0556 Atorvastatin Calcium 40 MG 04/18 170 AC 04/25 PO 1712 Ceftriaxone Sodium 2,000 MG 04/23 AC 04/25 IV 2200 Dextrose/Sodium 1,000 ML Q13H 04/26 0000 AC 04/26 Chloride IV 0041 Diltiazem HCl 240 MG DAILY 04/19 0900 AC 04/26 PO 0937 Escitalopram Oxalate 10 MG DAILY 04/19 09 AC 04/26 PO 0937 Heparin Sodium 5,000 UNIT Q8 04/25 2200 DC 04/25 (Porcine) SC 04/26 0000 2200 Insulin Aspart 0 Q4 04/26 1000 AC SC Insulin Aspart 0 AT BEDTIME 04/23 2100 DC SC Insulin Aspart 0 TIDAC 04/23 1700 DC 04/25 SC 04/25 2000 1715 Insulin Detemir 6 UNITS BID 04/26 2100 AC SC Insulin Detemir 6 UNITS BID 04/25 2100 DC SC Insulin Detemir 4 UNITS BID 04/25 2100 DC 04/25 SC 2310 Insulin Detemir 8 UNITS BID 04/23 2100 DC 04/25 SC 0823 Insulin Human Regular 0 Q6 04/25 2359 DC 04/26 SC 0537 Melatonin 5 MG AT BEDTIME 04/18 2245 AC 04/25 PO 2258 Oxycodone/ 2 TAB Q6P PRN 04/18 2045 DC 04/18 Acetaminophen PO 2038 Phenytoin 200 MG BID 04/18 2100 AC 04/26 PO 0937 Tamsulosin HCl 0.4 MG DAILY 04/19 09 AC 04/26 PO 0937 Vancomycin HCl 1,000 MG BID 04/24 2100 AC 04/26 Sodium Chloride 250 ML IV 0940 Last 24 Hrs of Lab/Av Results Last 24 Hrs of Labs/Mics: Laboratory Tests 04/26/18 0524: Anion Gap 9, Estimated GFR > 60, BUN/Creatinine Ratio 11.0, CBC w Diff NO MAN DIFF REQ, RBC 2.99 L, MCV 82.5, MCH 28.2, MCHC 34.2, RDW 13.8, MPV 6.5 L, Gran % 77.6 H, Lymphocytes % 12.3 L, Monocytes % 6.9, Eosinophils % 2.7, Basophils % 0.5, Absolute Granulocytes 5.7, Absolute Lymphocytes 0.9 L, Absolute Monocytes 0.5, Absolute Eosinophils 0.2, Absolute Basophils 0, Random Vancomycin 24.7 Assessment/Plan Assessment: 82-year-old gentleman history of noncompliance insulin-dependent diabetes, neuropathy, hypertension, peripheral vascular disease, dementia, previous history of osteomyelitis s/p amputations Patient was initially admitted to the general medicine floor for left third toe osteomyelitis/gangrene s/p debridement on 04/18 by podiatry, transferred to telemetry post-operatively for increased PVC's on monitor. Patient on telemetry is being managed for the followin. Gram positive sepsis- Resolved Now growing MRSA in blood cultures, OR cultures growing MRSA and proteus mirabilis (pansensitive). Random vanc level: 24.8. Currently on IV Vancomycin and IV Ceftriaxone. Will require 4 weeks of therapy. 2. Left toe gangrene s/p toe amputation and revision POD #1. 3. PACs/PVCs- patient has occasional palpitations, PVCs on telemetry monitoring, cardiology consulted, currently on statin and Diltiazem 4. Hyperglycemia, Diabetic - FSG in the 100s now. Endocrinology on board, insulin adjusted. 5. LEYDA - resolved 6. Chronic Anemia 7. PAD - vascular consulted, CT Abd/Pelvis with bilateral runnoff final report pending - Dr. Álvarez informed that there is good blood flow Plan: Continue tele monitoring Patient will be going for TMA today Cardiology consulted; appreciate recommendations Monitor vitals qshift Accuchecks TIDAC/qHS Continue IV vancomycin and ceftriaxone for 4 weeks Insulin adjusted per endo recommendations Levemir held this morning. Will resume 6 units BID starting tonight. NovoLog q4h, Accuchecks q4h, IV D5 1/2NS Will change to novolog TID/qHS per endo recs once patient resumes diet Infectious disease consulted. Appreciate recommendations. Antibiotic dose and duration per ID recommendations. Will require 4 weeks of IV therapy starting from today. Vanc trough level today. Postop foot xray and ESR in AM. Weekly CBC, ESR, BUN/Creatinine and Vancomycin trough level while on antibiotics. Podiatry is on board. Vascular surgery consulted. Appreciate Recommendations PT eval- nonweight bearing on left foot for [address] Rocha Continue rest of home medication DVT prophylaxis: Heparin SQ Diet: Diabetic diet Code: Full code Problem List: 1. Osteomyelitis Pain Ratin Pain Location: left foot Pain Goal: Remain pain free Pain Plan: tylenol PRN Tomorrow's Labs & Rationales: cbc bep Chen Hernandez MD 04/26/18 1113: Attending Review Statement Attending Statement Attending MD Statement: examined this patient, discuss w/resident/PA/INDUSTRIAL CHEMISTRY TEACHER, agreed w/resident/PA/INDUSTRIAL CHEMISTRY TEACHER, reviewed EMR data (avail) Attending Assessment/Plan: 82M PMH diabetes, neuropathy, hypertension peripheral vascular disease dementia previous history of osteomyelitis s/p amputations admitted with left third toe osteomyelitis/gangrene s/p debridement on 04/18 by podiatry, now growing mRSA in blood cultures, transferred to telemetry post-operatively for increased PVC's on monitor. Lactate has normalized from 3.8, WBC improving, glucose levels remain uncontrolled. Blood cultures growing mRSA. Went for revision on 04/[address] angio of abdomen/pelvis with runoff shows good flow bilaterally with minimal disease. 1. Sepsis secondary to mRSA bacteremia 2. Left third toe osteomyelitis and gas gangrene 3. Multiple PVCs 4. PAD Plan - Discontinue telemetry - Continue Vancomycin and Ceftriaxone - PICC placed 04/24 - Will go for TMA on 04/26 - Follow blood and wound cultures - Follow ID, endocrine, podiatry, vascular recommendations - Monitor renal function - Continue home medications - DVT PPx - NWB for 2 weeks, will require rehab
--- NOTE | 2018-04-26 08:05 | PN- Diabetes ---
Assessment/Plan Diabetes Assessment: The patient states he feels well this morning. He is presently n.p.o. for surgery this afternoon. He is on D5 half-normal saline at 75 cc/h. Plan: Suggest follow the regimen as suggested in my note yesterday. He had 4 units of Levemir last night at 10 PM. I would not give him any more Levemir today until after the surgery when he is eating again. Instead of sliding scale regular every 6 hours the patient should be on sliding scale NovoLog every 4 hours for a blood sugar above 150. Please follow the sliding scale in my note yesterday. When the patient is eating again we should resume Levemir 6 units twice a day and his previous pre-meal NovoLog sliding scale as well as a separate bedtime sliding scale NovoLog. Subjective Subjective: Vital Signs Date Time Temp Pulse Resp B/P B/P Pulse O2 O2 Flow FiO2 Mean Ox Delivery Rate 04/26 0645 98.5 61 20 105/56 97 Room Air 04/25 2306 97.5 68 18 122/78 94 Room Air 04/25 1627 Room Air 2.0L 04/25 1445 98.1 60 20 118/62 95 Room Air 04/25 0830 98.2 65 20 126/60 Intake & Output 04/26 1600 04/26 0800 06 0000 Intake Total 600 Output Total 175 Balance 425 Intake, IV 600 Output, Urine 175 Patient 196 lb Weight Review of Systems Constitutional: Denies: chills, fever. Cardiovascular: Denies: chest pain. Respiratory: Denies: short of breath. Gastrointestinal: Denies: abdominal pain, nausea, vomiting. Objective Last 24 Hrs of Vital Signs/I&O Vital Signs Date Time Temp Pulse Resp B/P B/P Pulse O2 O2 Flow FiO2 Mean Ox Delivery Rate 04/26 0645 98.5 61 20 105/56 97 Room Air 04/25 2306 97.5 68 18 122/78 94 Room Air 04/25 1627 Room Air 2.0L 04/25 1445 98.1 60 20 118/62 95 Room Air 04/25 0830 98.2 65 20 126/60 Intake & Output 04/26 1600 04/26 0800 06/ 0000 Intake Total 600 Output Total 175 Balance 425 Intake, IV 600 Output, Urine 175 Patient 196 lb Weight Vital Signs Date Time Temp Pulse Resp B/P B/P Pulse O2 O2 Flow FiO2 Mean Ox Delivery Rate 04/26 0645 98.5 61 20 105/56 97 Room Air 04/25 2306 97.5 68 18 122/78 94 Room Air 04/25 1627 Room Air 2.0L 04/25 1445 98.1 60 20 118/62 95 Room Air 04/25 0830 98.2 65 20 126/60 Intake & Output 04/26 1600 04/26 0800 04/26 0000 Intake Total 600 Output Total 175 Balance 425 Intake, IV 600 Output, Urine 175 Patient 196 lb Weight Physical Exam General Appearance: alert, awake Head: normal appearance Neck: normal inspection Respiratory: normal breath sounds Cardiovascular: regular rate/rhythm Abdomen: normal bowel sounds Extremities: left foot bandaged Current Medications: Current Medications Sig/Aida Start time Last Medication Dose Route Stop Time Status Admin Acetaminophen 650 MG Q6P PRN 04/18 2045 AC PO Acetaminophen 1,000 MG Q6P PRN 04/18 2045 AC 04/19 IV 0556 Atorvastatin Calcium 40 MG 1700 04/18 1700 AC 04/25 PO 1712 Ceftriaxone Sodium 2,000 MG 04/23 220 AC 04/25 IV 2200 Dextrose/Sodium 1,000 ML Q13H 04/26 0000 AC 04/26 Chloride IV 0041 Diltiazem HCl 240 MG DAILY 04/19 09 AC 04/25 PO 0830 Escitalopram Oxalate 10 MG DAILY 04/19 09 AC 04/25 PO 0830 Heparin Sodium 5,000 UNIT Q8 04/25 2200 DC 04/25 (Porcine) IN 04/26 0000 2200 Insulin Aspart 0 AT BEDTIME 04/23 2100 AC SC Insulin Aspart 0 TIDAC 04/23 1700 DC 04/25 IN 04/25 2000 1715 Insulin Detemir 6 UNITS BID 04/25 2100 DC SC Insulin Detemir 4 UNITS BID 04/25 2100 AC 04/25 SC 2310 Insulin Detemir 8 UNITS BID 04/23 2100 DC 04/25 SC 0823 Insulin Human Regular 0 Q6 04/25 2359 AC 04/26 SC 0537 Melatonin 5 MG AT BEDTIME 04/18 2245 AC 04/25 PO 2258 Oxycodone/ 2 TAB Q6P PRN 04/18 2045 DC 04/18 Acetaminophen PO 2038 Phenytoin 200 MG BID 04/18 2100 AC 04/25 PO 2200 Tamsulosin HCl 0.4 MG DAILY 04/19 0900 AC 04/25 PO 0830 Vancomycin HCl 1,000 MG BID 04/24 2100 AC 04/25 Sodium Chloride 250 ML IV 2200 Findings Pertinent Lab/Av Results: Laboratory Tests 04/26 0524 Chemistry Sodium (137 - 145 mmol/L) 140 Potassium (3.5 - 5.1 mmol/L) 4.4 Chloride (98 - 107 mmol/L) 105 Carbon Dioxide (22 - 30 mmol/L) 26 Anion Gap (5 - 16) 9 BUN (9 - 20 mg/dL) 11 Creatinine (0.7 - 1.2 mg/dL) 1.0 Estimated GFR (>60 ml/min) > 60 BUN/Creatinine Ratio (7 - 25 %) 11.0 Hematology CBC w Diff NO MAN DIFF REQ WBC (4.8 - 10.8 /CUMM) 7.3 RBC (4.70 - 6.10 /CUMM) 2.99 L Hgb (14.0 - 18.0 G/DL) 8.4 L Hct (42 - 52 %) 24.7 L MCV (80.0 - 94.0 FL) 82.5 MCH (27.0 - 31.0 PG) 28.2 MCHC (33.0 - 37.0 G/DL) 34.2 RDW (11.5 - 14.5 %) 13.8 Plt Count (130 - 400 /CUMM) 484 H MPV (7.4 - 10.4 FL) 6.5 L Gran % (42.2 - 75.2 %) 77.6 H Lymphocytes % (20.5 - 51.1 %) 12.3 L Monocytes % (1.7 - 9.3 %) 6.9 Eosinophils % (0 - 5 %) 2.7 Basophils % (0.0 - 2.0 %) 0.5 Absolute Granulocytes (1.4 - 6.5 /CUMM) 5.7 Absolute Lymphocytes (1.2 - 3.4 /CUMM) 0.9 L Absolute Monocytes (0.10 - 0.60 /CUMM) 0.5 Absolute Eosinophils (0.0 - 0.7 /CUMM) 0.2 Absolute Basophils (0.0 - 0.2 /CUMM) 0 Toxicology Random Vancomycin (ug/ml) 24.7
--- NOTE | 2018-04-26 09:23 | Patient Discharge Instructions ---
Discharge Instructions General Discharge Information You were seen/treated for: Osteomyelitis (infection of the bone) Bacteremia (infection of the blood) You had these procedures: Transmetatarasal Amputation (removal of all your toes) Special Instructions: 1. Follow up with your primary care physician, siene maker and toll testboard worker 2. Note you will be on IV medications until May 24 3. Please do not put any weight on the left foot for the next 2 weeks 4. Weekly CBC, ESR, BUN/Creatinine and 5. Vancomycin trough level May 03 before dose Diet Continue normal diet: No Acute Coronary Syndrome Inclusion Criteria At DC or during hospital stay patient has or had the following: ACS DIAGNOSIS No Discharge Core Measures Meds if any: Prescribed or Continued at Discharge Meds if any: NOT Prescribed or Continued at Discharge Congestive Heart Failure Inclusion Criteria At DC or during hospital stay patient has or had the following: CHF DIAGNOSIS No Discharge Core Measures Meds if any: Prescribed or Continued at Discharge Meds if any: NOT Prescribed or Continued at Discharge Cerebrovascular accident Inclusion Criteria At DC or during hospital stay patient has or had the following: CVA/TIA Diagnosis No Discharge Core Measures Meds if any: Prescribed or Continued at Discharge Meds if any: NOT Prescribed or Continued at Discharge Venous thromboembolism Inclusion Criteria VTE Diagnosis No VTE Type NONE VTE Confirmed by (Test) NONE Discharge Core Measures - Per Current guidelines, there needs to be overlap - treatment for the first 5 days of Warfarin therapy. - If discharged on Warfarin prior to 5 days of - overlap therapy, the patient will need to be - assessed for post discharge needs including - *Post discharge parental anticoagulation - *Warfarin and/or parental anticoagulation education - *Follow up date to check INR post discharge At least 5 days overlap therapy as Inpatient No Meds if any: Prescribed or Continued at Discharge Note: Overlap Therapy is Warfarin and Anticoagulant Meds if any: NOT Prescribed or Continued at Discharge
--- NOTE | 2018-04-26 13:53 | PN- Infect Dx ---
Subjective Subjective: Afebrile without complaints Objective Last 24 Hrs of Vital Signs/I&O Vital Signs Date Time Temp Pulse Resp B/P B/P Pulse O2 O2 Flow FiO2 Mean Ox Delivery Rate 04/26 0937 61 150/76 04/26 0645 98.5 61 20 105/56 97 Room Air 04/25 2306 97.5 68 18 122/78 94 Room Air 04/25 1627 Room Air 2.0L 04/25 1445 98.1 60 20 118/62 95 Room Air Intake & Output 04/26 1600 04/26 0800 04/26 0000 Intake Total 600 Output Total 150 175 Balance -150 425 Intake, IV 600 Output, Urine 150 175 Patient 196 lb Weight Physical Exam Other Physical Findings: He appears comfortable in no acute distress Extremities left foot dressing intact, with wound VAC in place; PICC in place in the right upper extremity Results Last 24 Hours of Lab Results: Laboratory Tests 04/26 0524 Chemistry Sodium (137 - 145 mmol/L) 140 Potassium (3.5 - 5.1 mmol/L) 4.4 Chloride (98 - 107 mmol/L) 105 Carbon Dioxide (22 - 30 mmol/L) 26 Anion Gap (5 - 16) 9 BUN (9 - 20 mg/dL) 11 Creatinine (0.7 - 1.2 mg/dL) 1.0 Estimated GFR (>60 ml/min) > 60 BUN/Creatinine Ratio (7 - 25 %) 11.0 Hematology CBC w Diff NO MAN DIFF REQ WBC (4.8 - 10.8 /CUMM) 7.3 RBC (4.70 - 6.10 /CUMM) 2.99 L Hgb (14.0 - 18.0 G/DL) 8.4 L Hct (42 - 52 %) 24.7 L MCV (80.0 - 94.0 FL) 82.5 MCH (27.0 - 31.0 PG) 28.2 MCHC (33.0 - 37.0 G/DL) 34.2 RDW (11.5 - 14.5 %) 13.8 Plt Count (130 - 400 /CUMM) 484 H MPV (7.4 - 10.4 FL) 6.5 L Gran % (42.2 - 75.2 %) 77.6 H Lymphocytes % (20.5 - 51.1 %) 12.3 L Monocytes % (1.7 - 9.3 %) 6.9 Eosinophils % (0 - 5 %) 2.7 Basophils % (0.0 - 2.0 %) 0.5 Absolute Granulocytes (1.4 - 6.5 /CUMM) 5.7 Absolute Lymphocytes (1.2 - 3.4 /CUMM) 0.9 L Absolute Monocytes (0.10 - 0.60 /CUMM) 0.5 Absolute Eosinophils (0.0 - 0.7 /CUMM) 0.2 Absolute Basophils (0.0 - 0.2 /CUMM) 0 Toxicology Random Vancomycin (ug/ml) 24.7 Last 24 Hours of Av Results: No new cultures Recent Imaging Studies: CT runoff angiogram April 23 revealed mild peripheral arterial disease Assessment/Plan ID Impression: Stable, with temperatures and white blood cell count remaining normal, status post revisional partial third ray resection of the left foot, with placement of a wound VAC, 3 days ago, now 8 days status post open partial third ray resection for gangrene/osteomyelitis, with plans for a left TMA later today. He remains on Vancomycin and Ceftriaxone for MRSA/Proteus isolated from his OR cultures and MRSA alone isolated from the blood cultures, and he will need to be continued on antibiotics for a minimum of 4 weeks for residual osteomyelitis. With MRSA isolated from the blood, endocarditis must be considered, though his echocardiogram was negative. Suggestion: 1. Would obtain a postop baseline ESR and x-ray of the left foot 2. Repeat Vancomycin trough level with his next dose 3. Continue Vancomycin and Ceftriaxone to plan on a 4 week course of antibiotics from today (until May 24) 4. Will need a weekly CBC, ESR, BUN/creatinine and Vancomycin trough level while on antibiotics
[2018-04-26] MEDS ORDERED: CEFTRIAXONE2 G2 IV (14:13)
--- NOTE | 2018-04-26 14:14 | Operative Report ---
Operative/Inv Procedure Report Surgery Date: 04/26/18 Name of Procedure: 1 transmetatarsal amputation left foot 2 closure of open surgical wound with local random advancement flap left foot 3 Achilles tendon lengthening left 4 intraoperative administration of ankle block anesthesia 5 excisional debridement Pre-Operative Diagnosis: 1 osteomyelitis left foot 2 equinus left Post-Operative Diagnosis: Same Estimated Blood Loss: less than 50ml Surgeon/Line Locator: KARY RUVALCABA DPM Anesthesia: moderate sedation, block Operative/Procedure Note Note: After obtaining informed consent the patient was brought to the operating room and placed on the operating table in the supine position. The patient isn't securely fastened to the operating table utilizing safety belt. After administration of IV sedation, 10 mL of 0.5% Marcaine plain was infiltrated about the patient's left ankle. We left foot and ankle within scrubbed, prepped and draped in usual aseptic manner. Attention directed to the left foot, where a fishmouth-type incision encompassing the distal radius was marked out with a skin marker. A 15 blade was utilized to develop full-thickness flaps dorsally. A sagittal bone saw was utilized performed through and through osteotomies to the distal first second third fourth and fifth metatarsals. The distal foot was freed of its plantar soft tissue attachments and passed from the operative field. Specimen was sent for pathologic inspection. The open wound was then irrigated with 3 L of normal sterile saline infused with 50,000 units of bacitracin. Following this, the foot was redraped and surgeon's top gloves were changed clean gloves. Any bleeding vessels identified were cauterized or ligated as encountered. A plantar flap was then developed with undermining, mobilization and advancement of the inferior tissues superiorly. The deep side of the flap was held centrally with 2-0 Vicryl. The septae stitches were reapproximated with 2-0 Vicryl's well. Skin edges were then reapproximated with 2-0 nylon. A percutaneous triple hemisection Achilles tendon lengthening was performed. The stab incisions were closed with skin erick. The incisions were then dressed with Xeroform, 4 x 4's, Kerlix and an Pete wrap. The patient was noted to tolerate both procedure and anesthesia well and the patient was transported from the operating room to recovery with vital signs stable best assess intact to the plantar flap.
[2018-04-26 21:59] VITALS: BP 109/64
[2018-04-27 06:20] VITALS: BP 144/68
[2018-04-27 09:10] LABS: ABSOLUTE BASOPHIL COUNT 0 /CUMM (0.0-0.2); ABSOLUTE EOSINOPHIL COUNT 0.2 /CUMM (0.0-0.7); ABSOLUTE GRANULOCYTE CT 7.6 /CUMM (1.4-6.5); ABSOLUTE LYMPH COUNT 0.8 /CUMM (1.2-3.4); ABSOLUTE MONOCYTE COUNT 0.5 /CUMM (0.10-0.60); BASOPHIL % 0.5 % (0.0-2.0); EOSINOPHIL % 1.8 % (0-5); GRANULOCYTE % 82.8 % (42.2-75.2); HEMATOCRIT 24.5 % (42-52); MEAN CORPUSCULAR HGB 27.8 PG (27.0-31.0); MEAN CORPUSCULAR VOLUME 81.7 FL (80.0-94.0); MEAN PLATELET VOLUME 6.8 FL (7.4-10.4); PLATELET COUNT 500 /CUMM (130-400); RBC DISTRIBUTION WIDTH 13.7 % (11.5-14.5); RED BLOOD CELL CT 3.01 /CUMM (4.70-6.10); WHITE BLOOD CELL COUNT 9.1 /CUMM (4.8-10.8)
--- NOTE | 2018-04-27 09:36 | PN- Diabetes ---
Assessment/Plan Diabetes Assessment: Patient feels okay today. He had further surgery yesterday by Dr. Antoine. He is back on his usual insulin regimen. This includes Levemir 6 units twice a day and sliding scale NovoLog. His fingerstick blood sugar this morning is 190. Plan: Suggest continue the present insulin regimen. Continue to monitor sugars 4 times a day. The patient will need 4 weeks of antibiotic therapy according to Dr. Mckeon starting from yesterday. Patient will need to go to rehab. Subjective Subjective: feels ok Review of Systems Constitutional: Denies: chills, fever. Cardiovascular: Denies: chest pain. Respiratory: Denies: cough, short of breath. Gastrointestinal: Denies: abdominal pain, nausea, vomiting. Objective Last 24 Hrs of Vital Signs/I&O Vital Signs Date Time Temp Pulse Resp B/P B/P Pulse O2 O2 Flow FiO2 Mean Ox Delivery Rate 04/27 620 98.2 63 18 144/68 97 Nasal 2.0L Cannula 04/27 0000 Nasal 2.0L Cannula 04/26 2159 98.0 86 18 109/64 96 04/26 0937 61 150/76 Intake & Output 04/27 1600 04/27 0000 Intake Total 400 400 Output Total Balance 400 400 Intake, IV 300 300 Intake, Oral 100 100 Number 0 Bowel Movements Vital Signs Date Time Temp Pulse Resp B/P B/P Pulse O2 O2 Flow FiO2 Mean Ox Delivery Rate 04/27 620 98.2 63 18 144/68 97 Nasal 2.0L Cannula 04/27 0000 Nasal 2.0L Cannula 04/26 2159 98.0 86 18 109/64 96 04/26 0937 61 150/76 Intake & Output 04/27 1600 04/27 0000 Intake Total 400 400 Output Total Balance 400 400 Intake, IV 300 300 Intake, Oral 100 100 Number 0 Bowel Movements Physical Exam General Appearance: alert, awake, comfortable Head: normal appearance Neck: normal inspection Respiratory: normal breath sounds Cardiovascular: regular rate/rhythm Abdomen: normal bowel sounds Extremities: normal inspection Current Medications: Current Medications Sig/Aida Start time Last Medication Dose Route Stop Time Status Admin Acetaminophen 650 MG .STK-MED ONE 04/26 2129 DC PO 04/26 2130 Acetaminophen 650 MG Q6P PRN 04/18 2045 AC 04/26 PO 2140 Acetaminophen 1,000 MG Q6P PRN 04/18 204 AC 04/19 IV 0556 Atorvastatin Calcium 40 MG 1700 04/18 1700 AC 04/26 PO 1726 Ceftriaxone Sodium 2,000 MG 04/23 AC 04/26 IV 2136 Dexamethasone 4 MG .STK-MED ONE 04/26 1239 DC IM 04/26 1240 Dextrose/Sodium 1,000 ML Q13H 04/26 0000 DC 04/26 Chloride IV 1735 Diltiazem HCl 240 MG DAILY 04/19 900 AC 04/26 PO 0937 Escitalopram Oxalate 10 MG DAILY 04/19 900 AC 04/26 PO 0937 Fentanyl Citrate 100 MCG .STK-MED ONE 04/26 1239 DC IM 04/26 1240 Insulin Aspart 0 AT BEDTIME 04/26 2100 AC 04/26 SC 2135 Insulin Aspart 0 TIDAC 04/26 1830 AC SC Insulin Aspart 0 Q4 04/26 1000 DC 04/26 SC 1733 Insulin Detemir 6 UNITS BID 04/26 2100 AC 04/26 SC 2134 Melatonin 5 MG AT BEDTIME 04/18 2245 AC 04/26 PO 2134 Midazolam HCl 2 MG .STK-MED ONE 04/26 1239 DC IM 04/26 1240 Ondansetron HCl 4 MG .STK-MED ONE 04/26 1239 DC IM 04/26 1240 Oxycodone/ 1 TAB ONCE ONE 04/27 0115 DC 04/27 Acetaminophen PO 04/27 0116 0106 Phenytoin 200 MG BID 04/18 2100 AC 04/26 PO 2134 Tamsulosin HCl 0.4 MG DAILY 04/19 900 AC 04/26 PO 0937 Vancomycin HCl 1,000 MG BID 04/24 2100 AC 04/26 Sodium Chloride 250 ML IV 2134 Findings Pertinent Lab/Av Results: Laboratory Tests 04/27 04/27 04/26 0650 0650 0524 Chemistry Sodium (137 - 145 mmol/L) Pending Cancelled 140 Potassium (3.5 - 5.1 mmol/L) Pending Cancelled 4.4 Chloride (98 - 107 mmol/L) Pending Cancelled 105 Carbon Dioxide (22 - 30 mmol/L) Pending Cancelled 26 Anion Gap (5 - 16) Pending Cancelled 9 BUN (9 - 20 mg/dL) Pending Cancelled 11 Creatinine (0.7 - 1.2 mg/dL) Pending Cancelled 1.0 Estimated GFR (>60 ml/min) > 60 BUN/Creatinine Ratio (7 - 25 %) Pending Cancelled 11.0 Hematology CBC w Diff Pending NO MAN DIFF REQ WBC (4.8 - 10.8 /CUMM) Pending 7.3 RBC (4.70 - 6.10 /CUMM) Pending 2.99 L Hgb (14.0 - 18.0 G/DL) Pending 8.4 L Hct (42 - 52 %) Pending 24.7 L MCV (80.0 - 94.0 FL) Pending 82.5 MCH (27.0 - 31.0 PG) Pending 28.2 MCHC (33.0 - 37.0 G/DL) Pending 34.2 RDW (11.5 - 14.5 %) Pending 13.8 Plt Count (130 - 400 /CUMM) Pending 484 H MPV (7.4 - 10.4 FL) Pending 6.5 L Gran % (42.2 - 75.2 %) 77.6 H Lymphocytes % (20.5 - 51.1 %) 12.3 L Monocytes % (1.7 - 9.3 %) 6.9 Eosinophils % (0 - 5 %) 2.7 Basophils % (0.0 - 2.0 %) 0.5 Absolute Granulocytes (1.4 - 6.5 /CUMM) 5.7 Absolute Lymphocytes (1.2 - 3.4 /CUMM) 0.9 L Absolute Monocytes (0.10 - 0.60 /CUMM) 0.5 Absolute Eosinophils (0.0 - 0.7 /CUMM) 0.2 Absolute Basophils (0.0 - 0.2 /CUMM) 0 ESR Westergren Pending Toxicology Vancomycin Trough Pending Random Vancomycin (ug/ml) 24.7
--- NOTE | 2018-04-27 12:08 | PN- Att Addend ---
Attending Addendum Attending Brief Note Pt seen and examined. He status post transmetatarsal amputation and has some pain in the left lower extremity. Awake alert, lungs are clear to auscultation, heart is S1-S2 regular, abdomen is soft anAwake alert, lungs are clear to auscultation, heart is S1-S2 regular, abdomen is soft and the foot is dressed. White count is 9 and hemoglobin is 8. Postop ESR and x-ray of the foot is pending as requested by ID. The patient has ploymicrobial osteomyelitis and sepsis. He has a PICC line and the plan is 4 weeks of antibiotics to May 24. The plan will be STR in a.m. if stable
[2018-04-27 15:12] VITALS: BP 110/60
--- NOTE | 2018-04-27 17:02 | Event Note ---
Event Note Event Note: error of the actual value
--- NOTE | 2018-04-27 18:36 | RADIOLOGY REPORT ---
EXAMINATION: XR FOOT, LEFT CLINICAL INFORMATION: Status post metatarsal amputation. COMPARISON: Left foot 02/16/2018. TECHNIQUE: AP, lateral, and oblique views of the left foot. FINDINGS: There are immediate postop changes following distal metatarsal amputation. Immediate postop changes are seen. No periosteal elevation or soft tissue gas seen. IMPRESSION: Postoperative changes left foot. No visible soft tissue abnormality seen. No periosteal elevation seen to suggest any osteomyelitis.
[2018-04-27 22:44] VITALS: BP 140/60
[2018-04-28 06:20] VITALS: BP 145/69
--- NOTE | 2018-04-28 08:24 | PN- Infect Dx ---
Subjective Subjective: Afebrile without complaints Objective Last 24 Hrs of Vital Signs/I&O Vital Signs Date Time Temp Pulse Resp B/P B/P Pulse O2 O2 Flow FiO2 Mean Ox Delivery Rate 04/28 0620 98.8 73 20 145/69 92 Room Air 04/27 2244 99.4 69 24 140/60 93 Room Air 04/27 1512 98.0 67 20 110/60 94 /02 1000 144/68 Intake & Output 04/28 1600 04/28 0800 04/28 0000 Intake Total 100 400 Output Total Balance 100 400 Intake, IV 300 Intake, Oral 100 100 Number 0 Bowel Movements Physical Exam Other Physical Findings: He appears comfortable in no acute distress Extremities left foot dressing intact; PICC in the right upper extremity with no inflammation at the site Results Last 24 Hours of Lab Results: Laboratory Tests 04/27 04/27 0650 0650 Chemistry Sodium (137 - 145 mmol/L) 139 Cancelled Potassium (3.5 - 5.1 mmol/L) 4.6 Cancelled Chloride (98 - 107 mmol/L) 105 Cancelled Carbon Dioxide (22 - 30 mmol/L) 24 Cancelled Anion Gap (5 - 16) 11 Cancelled BUN (9 - 20 mg/dL) 13 Cancelled Creatinine (0.7 - 1.2 mg/dL) 1.1 Cancelled Estimated GFR (>60 ml/min) > 60 BUN/Creatinine Ratio (7 - 25 %) 11.8 Cancelled Hematology CBC w Diff NO MAN DIFF REQ WBC (4.8 - 10.8 /CUMM) 9.1 RBC (4.70 - 6.10 /CUMM) 3.01 L Hgb (14.0 - 18.0 G/DL) 8.4 L Hct (42 - 52 %) 24.5 L MCV (80.0 - 94.0 FL) 81.7 MCH (27.0 - 31.0 PG) 27.8 MCHC (33.0 - 37.0 G/DL) 34.0 RDW (11.5 - 14.5 %) 13.7 Plt Count (130 - 400 /CUMM) 500 H MPV (7.4 - 10.4 FL) 6.8 L Gran % (42.2 - 75.2 %) 82.8 H Lymphocytes % (20.5 - 51.1 %) 9.3 L Monocytes % (1.7 - 9.3 %) 5.6 Eosinophils % (0 - 5 %) 1.8 Basophils % (0.0 - 2.0 %) 0.5 Absolute Granulocytes (1.4 - 6.5 /CUMM) 7.6 H Absolute Lymphocytes (1.2 - 3.4 /CUMM) 0.8 L Absolute Monocytes (0.10 - 0.60 /CUMM) 0.5 Absolute Eosinophils (0.0 - 0.7 /CUMM) 0.2 Absolute Basophils (0.0 - 0.2 /CUMM) 0 ESR Westergren (0 - 10 MM) 93 H Toxicology Vancomycin Trough (10.0 - 20.0 ug/mL) 23.6 H Last 24 Hours of Av Results: No recent cultures Recent Imaging Studies: X-ray of the left foot April 27 postop changes with no periosteal elevation Assessment/Plan ID Impression: Stable, with temperatures and white blood cell count remaining normal, status post left transmetatarsal amputation 2 days ago for osteomyelitis of the left foot, on Vancomycin and Ceftriaxone for MRSA/Proteus isolated from his OR and blood cultures. He will need to be continued on antibiotics for a minimum of 4 weeks from his most recent debridement for residual osteomyelitis. A Vancomycin trough level yesterday was elevated at 23.6 and, as it appears to have been drawn at the correct time, his dose will need to be adjusted. Suggestion: 1. Decrease Vancomycin to 1 g IV every 24 hours and repeat a trough level with his 4th dose 2. Continue Vancomycin and Ceftriaxone until May 24 3. Weekly CBC, ESR, BUN/creatinine and Vancomycin trough level while on antibiotics
--- NOTE | 2018-04-28 08:40 | PN- Housestaff ---
Dyana Murguia 04/28/18 0840: Subjective Follow-up For: MRSA Bacteremia Left toe gangrene s/p amputation PACs/PVCs Hyperglycemia Subjective: FSG 165, 170. Patient offers no complaints. No acute events overnight Review of Systems Constitutional: Reports: see HPI. Objective Last 24 Hrs of Vital Signs/I&O Vital Signs Date Time Temp Pulse Resp B/P B/P Pulse O2 O2 Flow FiO2 Mean Ox Delivery Rate 04/28 06 98.8 73 20 145/69 92 Room Air 04/27 2244 99.4 69 24 140/60 93 Room Air 04/27 1512 98.0 67 20 110/60 94 Intake & Output 04/28 1600 04/28 0800 04/28 0000 Intake Total 100 400 Output Total Balance 100 400 Intake, IV 300 Intake, Oral 100 100 Number 0 Bowel Movements Physical Exam General Appearance: Alert, Oriented X3, Cooperative Cardiovascular: Regular Rate, Normal S1, Normal S2 Lungs: Clear to Auscultation, Normal Air Movement Abdomen: Normal Bowel Sounds, Soft, No Tenderness Current Medications: Current Medications Sig/Aida Start time Last Medication Dose Route Stop Time Status Admin Acetaminophen 1,000 MG .STK-MED ONE 04/27 2119 DC IV 04/27 2120 Acetaminophen 650 MG Q6P PRN 04/18 2045 AC 04/26 PO 2140 Acetaminophen 1,000 MG Q6P PRN 04/18 2045 AC 04/27 IV 2135 Atorvastatin Calcium 40 MG 1700 04/18 170 AC 04/27 PO 1709 Ceftriaxone Sodium 2,000 MG 04/28 AC IV Ceftriaxone Sodium 2,000 MG 04/23 220 DC 04/27 IV 2125 Diltiazem HCl 240 MG DAILY 04/19 09 AC 04/28 PO 1018 Escitalopram Oxalate 10 MG DAILY 04/19 900 AC 04/28 PO 1018 Insulin Aspart 0 AT BEDTIME 04/26 2100 AC 04/26 SC 2135 Insulin Aspart 0 TIDAC 04/26 1830 AC 04/28 SC 1341 Insulin Detemir 6 UNITS BID 04/26 2100 AC 04/28 SC 1018 Melatonin 5 MG AT BEDTIME 04/18 2245 AC 04/27 PO 2132 Phenytoin 200 MG BID 04/18 2100 AC 04/28 PO 1017 Tamsulosin HCl 0.4 MG DAILY 04/19 900 AC 04/28 PO 1018 Vancomycin HCl 1,000 MG DAILY 04/29 0900 AC Sodium Chloride 250 ML IV Vancomycin HCl 1,000 MG BID 04/24 2100 DC 04/27 Sodium Chloride 250 ML IV 2128 Assessment/Plan Assessment: 82-year-old gentleman history of noncompliance insulin-dependent diabetes, neuropathy, hypertension, peripheral vascular disease, dementia, previous history of osteomyelitis s/p amputations Problem list: 1. Gram positive sepsis- Resolved Now growing MRSA in blood cultures, OR cultures growing MRSA and proteus mirabilis (pansensitive). Random vanc level: 24.8. Currently on IV Vancomycin and IV Ceftriaxone. Will require 4 weeks of therapy. 2. Left toe gangrene s/p toe amputation and revision POD #1. 3. PACs/PVCs- patient has occasional palpitations, PVCs on telemetry monitoring, cardiology consulted, currently on statin and Diltiazem 4. Hyperglycemia, Diabetic - FSG in the 100s now. Endocrinology on board, insulin adjusted. 5. LEYDA - resolved 6. Chronic Anemia 7. PAD - vascular consulted, CT Abd/Pelvis with bilateral runnoff final report pending - Dr. Álvarez informed that there is good blood flow Plan: NPO at midnight Angiogram in a.m as per Vasc Possible dc tomorrow after angiogram Obtain Vanco trough level after 4th dose as per ID Continue Ceftriaxone and Vancomycin PT eval- nonweight bearing on left foot for [address] Rocha Pain: Tylenol DVT prophylaxis: Heparin SQ Diet: Diabetic diet Code: Full code Problem List: 1. Osteomyelitis Pain Ratin Pain Location: L foot Pain Goal: Pain 4 or less Pain Plan: Tylenol Tomorrow's Labs & Rationales: CBC Marichuy MONTE,Ursula 04/28/18 1131: Attending MD Review Statement Attending Statement Attending MD Statement: examined this patient, discuss w/resident/PA[employer], agreed w/resident/PA[employer], reviewed EMR data (avail), reviewed images Attending Assessment/Plan: Appreciate ID f/u. Based on the Vanco trough levels the dose has been decreased , he needs 4 weeks of antibiotics till May 24 and is status post transmetatarsal amputation on April 26. I spoke to case management and we are awaiting PT and wound care notes an authorization for rehabilitation.
--- NOTE | 2018-04-28 10:34 | PN- Vascular Surgery ---
Surgical Brief Attending Note Brief Attending Note: VASCULAR ATTENDING NOTE: Pt. seen and examined and case d/w podiatry. Pt. now s/p TMA with concern for further progression/necrosis. CTA showed ? distal tibial disease and calcification. Pt. scheduled for L. leg angio. and possible intervention tommorow 04/29. PE: AF/VSS Ext: well perfused, no pain, dressed A/P For angio- 04/29 Keep NPO at midnight Likely can be discharged post-procedure in afternoon 04/29
[2018-04-28 17:48] VITALS: BP 139/74
[2018-04-28 22:30] VITALS: BP 129/67
[2018-04-29 06:20] VITALS: BP 116/69
--- NOTE | 2018-04-29 07:07 | PN- Housestaff ---
Subjective Follow-up For: 1. Gram positive sepsis- Resolved 2. Left toe gangrene s/p toe amputation and revision 3. PACs/PVCs- patient has occasional palpitations, PVCs on telemetry monitoring, cardiology consulted, currently on statin and Diltiazem 4. Hyperglycemia, Diabetic 5. LEYDA - resolved 6. Chronic Anemia 7. PAD Subjective: Patient offers no complaints. No acute events overnight Review of Systems Constitutional: Reports: see HPI. Objective Last 24 Hrs of Vital Signs/I&O Vital Signs Date Time Temp Pulse Resp B/P B/P Pulse O2 O2 Flow FiO2 Mean Ox Delivery Rate 04/29 1400 98.4 74 18 127/70 95 Room Air 04/29 1218 Room Air 2.0L 04/29 1217 Room Air 2.0L / 0806 98.3 67 20 116/69 06/ 0620 98.3 67 20 116/69 94 Room Air 04/28 2230 100.1 71 20 129/67 93 Room Air / 1748 99.0 70 18 139/74 99 Room Air Intake & Output 04/29 1600 04/29 0800 04/29 0000 Intake Total 700 100 930 Output Total Balance 700 100 930 Intake, IV 700 30 Intake, Oral 100 900 Number 0 Bowel Movements Physical Exam General Appearance: Alert, Oriented X3, Cooperative, No Acute Distress Cardiovascular: Regular Rate, Normal S1, Normal S2 Lungs: Clear to Auscultation, Normal Air Movement Abdomen: Normal Bowel Sounds, Soft, No Tenderness Current Medications: Current Medications Sig/Aida Start time Last Medication Dose Route Stop Time Status Admin Acetaminophen 650 MG .STK-MED ONE 04/28 2216 DC PO 04/28 2217 Acetaminophen 650 MG Q6P PRN 04/18 2045 AC 04/28 PO 222 Acetaminophen 1,000 MG Q6P PRN 04/18 2045 AC 04/27 IV 2135 Atorvastatin Calcium 40 MG 1700 04/18 1700 AC 04/28 PO 1809 Ceftriaxone Sodium 2,000 MG 04/28 AC 04/28 IV 2224 Dextrose/Sodium 1,000 ML Q13H 04/29 09 DC 04/29 [place]ide [place] 0924 Diltiazem HCl 240 MG DAILY 04/19 900 AC 04/29 PO 08 Escitalopram Oxalate 10 MG DAILY 04/19 900 AC 04/29 PO 0806 Insulin Aspart 0 TIDAC 04/29 1700 AC SC Insulin Aspart 0 Q4 04/29 1000 DC SC Insulin Aspart 0 AT BEDTIME 04/26 2100 AC 04/26 SC 2135 Insulin Aspart 0 TIDAC 04/26 1830 DC 04/29 SC 0812 Insulin Detemir 6 UNITS BID 04/29 2100 AC SC Insulin Detemir 3 UNITS BID 04/29 0900 DC SC Insulin Detemir 6 UNITS BID 04/26 2100 DC 04/29 SC 0811 Melatonin 5 MG AT BEDTIME 04/18 2245 AC 04/28 PO 222 Phenytoin 200 MG BID 04/18 2100 AC 04/29 PO 0806 Tamsulosin HCl 0.4 MG DAILY 04/19 900 AC 04/29 PO 805 Vancomycin HCl 1,000 MG DAILY 04/29 900 AC 04/29 Sodium Chloride 250 ML IV 804 Last 24 Hrs of Lab/Av Results Last 24 Hrs of Labs/Mics: Laboratory Tests 04/29/18 0625: CBC w Diff NO MAN DIFF REQ, RBC 3.05 L, MCV 82.8, MCH 28.3, MCHC 34.1, RDW 14.0 , MPV 6.5 L, Gran % 80.2 H, Lymphocytes % 9.3 L, Monocytes % 7.5, Eosinophils % 2.8, Basophils % 0.2, Absolute Granulocytes 5.9, Absolute Lymphocytes 0.7 L, Absolute Monocytes 0.6, Absolute Eosinophils 0.2, Absolute Basophils 0 Assessment/Plan Assessment: 82-year-old gentleman history of noncompliance insulin-dependent diabetes, neuropathy, hypertension, peripheral vascular disease, dementia, previous history of osteomyelitis s/p amputations Problem list: 1. Gram positive sepsis- Resolved 2. Left toe gangrene s/p toe amputation and revision 3. PACs/PVCs- patient has occasional palpitations, PVCs on telemetry monitoring, cardiology consulted, currently on statin and Diltiazem 4. Hyperglycemia, Diabetic 5. LEYDA - resolved 6. Chronic Anemia 7. PAD Plan: s/p Angiogram with good blood flow Patient instructed to lay flat for 4 hours prior to discharge today Obtain Vanco trough level after 4th dose as per ID Continue Ceftriaxone and Vancomycin PT eval- nonweight bearing on left foot for [address] Rocha Pain: Tylenol DVT prophylaxis: Heparin SQ Diet: Diabetic diet Code: Full code Dispo: STR Problem List: 1. Osteomyelitis 2. Uncontrolled diabetes mellitus Pain Ratin Pain Location: NA Pain Goal: Remain pain free Pain Plan: NA Tomorrow's Labs & Rationales: none
--- NOTE | 2018-04-29 08:18 | PN- Diabetes ---
Assessment/Plan Diabetes Assessment: The patient feels okay. He is currently n.p.o. for an angiogram and possible intervention to improve the blood supply to his left foot. Plan: Suggest that while the patient is n.p.o. we should place him on D5 half-normal saline at 75 cc/h. We should reduce his dose of Levemir this morning to 3 units. We should change his sliding scale NovoLog every 4 hours while n.p.o. based on his IV fluids with glucose in it. NovoLog sliding scale while n.p.o. should be less than 150 give no insulin, 151-200 give 2 units NovoLog, 201-250 give 3 units NovoLog, 251-300 give 4 units NovoLog, 301 350 give 5 units NovoLog, 351-400 give 6 units NovoLog. Objective Last 24 Hrs of Vital Signs/I&O Vital Signs Date Time Temp Pulse Resp B/P B/P Pulse O2 O2 Flow FiO2 Mean Ox Delivery Rate 04/29 0806 98.3 67 20 116/69 / 0620 98.3 67 20 116/69 94 Room Air 04/28 2230 100.1 71 20 129/67 93 Room Air 04/28 1748 99.0 70 18 139/74 99 Room Air Intake & Output 04/29 1600 04/29 0800 04/29 0000 Intake Total 930 Output Total Balance 930 Intake, IV 30 Intake, Oral 900 Number 0 Bowel Movements Vital Signs Date Time Temp Pulse Resp B/P B/P Pulse O2 O2 Flow FiO2 Mean Ox Delivery Rate 04/29 0806 98.3 67 20 116/69 / 0620 98.3 67 20 116/69 94 Room Air 04/28 2230 100.1 71 20 129/67 93 Room Air / 1748 99.0 70 18 139/74 99 Room Air Intake & Output 04/29 1600 /04 0800 06 0000 Intake Total 930 Output Total Balance 930 Intake, IV 30 Intake, Oral 900 Number 0 Bowel Movements Current Medications: Current Medications Sig/Aida Start time Last Medication Dose Route Stop Time Status Admin Acetaminophen 650 MG .STK-MED ONE 04/28 221 DC PO 04/28 2217 Acetaminophen 650 MG Q6P PRN 04/18 2045 AC 04/28 PO 2223 Acetaminophen 1,000 MG Q6P PRN 04/18 2045 AC 04/27 IV 2135 Atorvastatin Calcium 40 MG 1700 04/18 1700 AC 04/28 PO 1809 Ceftriaxone Sodium 2,000 MG 04/28 AC 04/28 IV 2224 Diltiazem HCl 240 MG DAILY 04/19 900 AC 04/29 PO 0806 Escitalopram Oxalate 10 MG DAILY 04/19 900 AC 04/29 PO 0806 Insulin Aspart 0 AT BEDTIME 04/26 2100 AC 04/26 SC 213 Insulin Aspart 0 TIDAC 04/26 1830 AC 04/29 SC 0812 Insulin Detemir 6 UNITS BID 04/26 2100 AC 04/29 SC 0811 Melatonin 5 MG AT BEDTIME 04/18 2245 AC 04/28 PO 2224 Phenytoin 200 MG BID 04/18 2100 AC 04/29 PO 0806 Tamsulosin HCl 0.4 MG DAILY 04/19 900 AC 04/29 PO 0806 Vancomycin HCl 1,000 MG DAILY 04/29 09 AC 04/29 Sodium Chloride 250 ML IV 0805 Vancomycin HCl 1,000 MG BID 04/24 2100 DC 04/27 Sodium Chloride 250 ML IV 212
[2018-04-29 08:41] LABS: ABSOLUTE BASOPHIL COUNT 0 /CUMM (0.0-0.2); ABSOLUTE EOSINOPHIL COUNT 0.2 /CUMM (0.0-0.7); ABSOLUTE GRANULOCYTE CT 5.9 /CUMM (1.4-6.5); ABSOLUTE LYMPH COUNT 0.7 /CUMM (1.2-3.4); ABSOLUTE MONOCYTE COUNT 0.6 /CUMM (0.10-0.60); BASOPHIL % 0.2 % (0.0-2.0); EOSINOPHIL % 2.8 % (0-5); GRANULOCYTE % 80.2 % (42.2-75.2); HEMATOCRIT 25.2 % (42-52); MEAN CORPUSCULAR HGB 28.3 PG (27.0-31.0); MEAN CORPUSCULAR HGB CONC 34.1 G/DL (33.0-37.0); MEAN CORPUSCULAR VOLUME 82.8 FL (80.0-94.0); MEAN PLATELET VOLUME 6.5 FL (7.4-10.4); PLATELET COUNT 508 /CUMM (130-400); RED BLOOD CELL CT 3.05 /CUMM (4.70-6.10); WHITE BLOOD CELL COUNT 7.3 /CUMM (4.8-10.8)
--- NOTE | 2018-04-29 11:17 | PN- Att Addend ---
Attending Addendum Attending Brief Note Patient seen and examined, denies any complaints. Denies any aches or pains. Patient is scheduled for L. leg angio. and possible intervention today per vascular surgery. Currently on Vanco and ceftriaxone which need to be continued till May 24. I'm told the patient or the has a PICC line. We'll ask neurosurgery patient can likely be discharged after the procedure today. Blood sugars are managed by endocrinology. Patient's final insulin dose will need to be checked with endocrinology for his discharge. Continue the rest of the medications. Patient has a bed available at [facility] then can likely be discharged to short-term rehabilitation later today after his vascular procedure.
--- NOTE | 2018-04-29 12:19 | Operative Report ---
Operative/Inv Procedure Report Surgery Date: 04/29/18 Name of Procedure: Ultrasound guidance for vascular access, aortogram, left pelvic angiogram, left lower extremity diagnostic angiogram, third order cannulation of the popliteal artery, placement of Exoseal closure device Pre-Operative Diagnosis: Diabetic foot ulcer with ulceration status post left transmetatarsal amputation ulceration status post left transmetatarsal amputation Post-Operative Diagnosis: Same Estimated Blood Loss: less than 50ml Surgeon/Chicken Picker: Bola Gustafson MD Anesthesia: local monitored anesthesi Complications: None Condition: Stable to recovery room Operative Indication: This is an 82-year-old male with a history of a diabetic foot infection. This required transmetatarsal amputation. There is concern for diabetic peripheral arterial disease. Recent CAT scan was nondiagnostic due to heavy calcification therefore repeat therefore diagnostic angiography was required. Risks benefits and alternatives were explained to the patient including Risks benefits and alternatives were explained to the patient including limb loss, limb loss, bleeding, vessel injury and . He decide to proceed. Operative/Procedure Note Note: The patient was brought to the operating room and laid supine on the table. After adequate anesthesia, IV lines, a timeout was held in accordance with [facility] policy. An ultrasound was used to access the right femoral artery. An image was briefly stored.An ultrasound was used access the right femoral artery. The artery was noted to be patent. The artery was punctured wi 21-gauge needle and a micropuncture catheter. This was exchanged for a 5 Taiwanese sheath. Through this a catheter was placed for diagnostic imaging of the aorta and left lower extremity. An aortogram and pelvic angiogram was performed by selecting the left internal iliac artery. This demonstrated a patent aorta and patent renal arteries. The internal iliac arteries are patent. The internal iliac arteries are patent. The left pelvic angiogram demonstrates no hemodynamically significant stenosis. There was significant tortuosity. The catheter was then used to select the left iliac, left femoral and popliteal artery. This demonstrates a patent common femoral and profunda femoris. The proximal mid and distal SFA are patent. The above and below-knee popliteal artery are patent. The patient has three-vessel runoff to the left foot. The catheter sheath and wire systems were then removed.An Exoseal Closure device was used to seal the right femoral puncture. He tolerated the procedure well and was transported to the recovery room. He has no significant vascular disease. Findings: As above CC: Dobuler MD,Navarro Kendrick; Elina GARCIA,Gerardo
--- NOTE | 2018-04-29 12:28 | PN- Vascular Surgery ---
Subjective Subjective: Post op angio via right groin Operative report pending but unremarkable per verbal report Pt is comfortable in the PACU without any pain or nausea Objective Vital Signs and I&Os Vital Signs Date Time Temp Pulse Resp B/P B/P Pulse O2 O2 Flow FiO2 Mean Ox Delivery Rate 04/29 1218 Room Air 2.0L 04/29 1217 Room Air 2.0L 04/29 0806 98.3 67 20 116/69 06/04 0620 98.3 67 20 116/69 94 Room Air 04/28 2230 100.1 71 20 129/67 93 Room Air 04/28 1748 99.0 70 18 139/74 99 Room Air Intake & Output 04/29 1600 / 0800 /04 0000 / 1600 / 0800 / 0000 Intake Total 948 746 3554 100 400 Output Total Balance 111 335 8402 100 400 Intake, IV 30 300 Intake, Oral 209 720 8789 100 100 Number 0 0 Bowel Movements Physical Exam: Comfortable VSS R groin dressing clean and dry, RLE warm No surrounding hematoma Assessment/Plan Assessment/Plan 82yo male s/p LLE angio via right groin Per Dr Gustafson, angio results are unremarkable Plan to lie flat for 4 hours post op until 1550, then may resume activity as desired. Restart all meds as pre-op No further vascular intervention warranted at this time Plan per medical service. Okay with vascular to discharge - follow up as necessary.
--- NOTE | 2018-04-29 13:02 | RADIOLOGY REPORT ---
EXAMINATION: CR ABDOMEN, LEFT LEG/INTRAOPERATIVE FLUOROSCOPY CLINICAL INDICATION: Diagnostic aortogram and left leg arteriogram in OR. COMPARISON: CT runoff angiogram dated 04/23/2018. TECHNIQUE/FINDINGS: Fluoroscopic equipment was dedicated to the operating room for the performance of an intraoperative procedure. Several (9) cine fluoroscopy runs were acquired and are archived in PACS. Please refer to operative notes for procedural detail. FLUOROSCOPY TIME: 327.3 seconds. IMPRESSION: Administrative dictation for intraoperative fluoroscopy and image archiving in PACS. Please refer to operative notes for details.
[2018-04-29] MEDS ORDERED: VANCOMYCIN HCL1 G1 IV (13:50)
[2018-04-29] MEDS ORDERED: CEFTRIAXONE2 G2 IV (13:51)
[2018-04-29] MEDS ORDERED: TYLENOL325 M1 PO (13:54)
[2018-04-29] MEDS ORDERED: LEVEMIR100 UNIT/1 SC (13:54)
[2018-04-29] MEDS ORDERED: NOVOLOG100 UNIT/2 SC ×4 (13:54→14:02)
[2018-04-29 14:00] VITALS: BP 127/70
[2018-04-29] MEDS ORDERED: ASPIRIN81 M4 PO (14:02)
[2018-04-29 16:42] VITALS: BP 127/70
== END 2018-04-29 18:50 | DRG 853 ==
LOC: DELPENDDIS → ERH 10:52 → ERHI 13:45 → 1NO 13:45 → ENRESERV 14:24 → ENTRNSPT 15:47 → 1NO 15:51 → 2NA 15:52 → EDTRNSPT 15:56 → EDTRNSPTSTS 15:56 → CMPTRNSPT 16:47 → ENTRNSPT 18:24 → EDTRNSPTSTS 18:27 → EDTRNSPT 18:27 → CMPTRNSPT 18:43 → 1NO 21:07 → ENTRNSPT 04-23 12:00 → EDTRNSPTSTS 04-23 12:32 → EDTRNSPT 04-23 12:32 → CMPTRNSPT 04-23 12:59 → ENTRNSPT 04-26 12:54 → EDTRNSPTSTS 04-26 13:20 → CMPTRNSPT 04-26 13:37 → ENTRNSPT 04-26 15:03 → EDTRNSPTSTS 04-26 15:14 → EDTRNSPT 04-26 15:14 → CMPTRNSPT 04-26 15:32 → ENTRNSPT 04-26 19:59 → EDTRNSPTSTS 04-26 20:04 → EDTRNSPT 04-26 20:04 → CMPTRNSPT 04-26 20:30 → 2NA 04-26 20:40 → ENTRNSPT 04-29 13:01 → EDTRNSPT 04-29 13:18 → EDTRNSPTSTS 04-29 13:18 → CMPTRNSPT 04-29 13:43 → ENPENDDIS 04-29 14:10 → 2NA 04-29 18:50
PROVIDERS: Internal Medicine; Physician Assistant Medical; Student in an Organized Health Care Education/Training Program
PROC: 0Y6N0ZC Detachment at Left Foot, Partial 3rd Ray, Open Approach (ICD-10-PCS; principal; 2018-04-18)
PROC: 0J9R0ZX Drainage of Left Foot Subcutaneous Tissue and Fascia, Open Approach, Diagnostic (ICD-10-PCS; 2018-04-18)
PROC: 3E0T3BZ Introduction of Anesthetic Agent into Peripheral Nerves and Plexi, Percutaneous Approach (ICD-10-PCS; 2018-04-18)
PROC: 0Y6U0Z3 Detachment at Left 3rd Toe, Low, Open Approach (ICD-10-PCS; 2018-04-23)
PROC: 0J9R0ZZ Drainage of Left Foot Subcutaneous Tissue and Fascia, Open Approach (ICD-10-PCS; 2018-04-23)
PROC: 2W1TX6Z Compression of Left Foot using Pressure Dressing (ICD-10-PCS; 2018-04-23)
PROC: 3E0T3BZ Introduction of Anesthetic Agent into Peripheral Nerves and Plexi, Percutaneous Approach (ICD-10-PCS; 2018-04-23)
PROC: 02HV33Z Insertion of Infusion Device into Superior Vena Cava, Percutaneous Approach (ICD-10-PCS; 2018-04-24)
PROC: 0Y6N0Z9 Detachment at Left Foot, Partial 1st Ray, Open Approach (ICD-10-PCS; 2018-04-26)
PROC: 0Y6N0ZB Detachment at Left Foot, Partial 2nd Ray, Open Approach (ICD-10-PCS; 2018-04-26)
PROC: 0Y6N0ZC Detachment at Left Foot, Partial 3rd Ray, Open Approach (ICD-10-PCS; 2018-04-26)
PROC: 0Y6N0ZD Detachment at Left Foot, Partial 4th Ray, Open Approach (ICD-10-PCS; 2018-04-26)
PROC: 0Y6N0ZF Detachment at Left Foot, Partial 5th Ray, Open Approach (ICD-10-PCS; 2018-04-26)
PROC: 0JXR0ZZ Transfer Left Foot Subcutaneous Tissue and Fascia, Open Approach (ICD-10-PCS; 2018-04-26)
PROC: 3E0T3BZ Introduction of Anesthetic Agent into Peripheral Nerves and Plexi, Percutaneous Approach (ICD-10-PCS; 2018-04-26)
PROC: 3E0T3BZ Introduction of Anesthetic Agent into Peripheral Nerves and Plexi, Percutaneous Approach (ICD-10-PCS; 2018-04-26)
PROC: B40D1ZZ Plain Radiography of Aorta and Bilateral Lower Extremity Arteries using Low Osmolar Contrast (ICD-10-PCS; 2018-04-29)
DX: A41.02 Sepsis due to Methicillin resistant Staphylococcus aureus (principal); A48.0 Gas gangrene; E11.52 Type 2 diabetes mellitus with diabetic peripheral angiopathy with gangrene; N17.9 Acute kidney failure, unspecified; E87.2 Acidosis; E87.1 Hypo-osmolality and hyponatremia; L03.116 Cellulitis of left lower limb; M86.172 Other acute osteomyelitis, left ankle and foot; E11.22 Type 2 diabetes mellitus with diabetic chronic kidney disease; E11.40 Type 2 diabetes mellitus with diabetic neuropathy, unspecified; N18.9 Chronic kidney disease, unspecified; E78.5 Hyperlipidemia, unspecified; I73.9 Peripheral vascular disease, unspecified; F03.90 Unspecified dementia, unspecified severity, without behavioral disturbance, psychotic disturbance, mood disturbance, and anxiety; E11.65 Type 2 diabetes mellitus with hyperglycemia; Z79.4 Long term (current) use of insulin; E11.69 Type 2 diabetes mellitus with other specified complication; Z91.14 Patient's other noncompliance with medication regimen; G40.909 Epilepsy, unspecified, not intractable, without status epilepticus; E86.0 Dehydration; I12.9 Hypertensive chronic kidney disease with stage 1 through stage 4 chronic kidney disease, or unspecified chronic kidney disease; B95.62 Methicillin resistant Staphylococcus aureus infection as the cause of diseases classified elsewhere; B96.4 Proteus (mirabilis) (morganii) as the cause of diseases classified elsewhere; Z89.421 Acquired absence of other right toe(s); Z85.46 Personal history of malignant neoplasm of prostate
CPT/HCPCS: 1NP; 2NAP; 87070; 87075; 87184; 36415; 36592; 71045; 71046; 73590-LT; 73630-LT; 81001; 82436; 87040; 87147; 88304; 88305; 93005; 93010; 93306; 96374; 96375; 97116-GO; 97161-GP; 97530-GO; C1725; C1760; C1769; J0131; J0696; J0713; J1100; J1644; J1815; J2001; J2405; J3370; J3490; J7040; J7042; Q9967